=== PATIENT | female | born 1945 ===

== ENCOUNTER 2020-10-15 14:20 | Outpatient (AMB) | payer MEDICARE, MEDICAID, SELFPAY ==
[2020-10-15 15:08] VITALS: BP 130/80; PULSE 66; TEMP 36; O2SAT 98; BMI 20.5
--- NOTE | 2020-10-15 15:08 | A.OFFVIS_ITS ---
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 Accompanied by: Self / Same As Patient Allergies елена Allergy (Intermediate, Verified 06/04/24 13:20) Rash HPI HPI left arm pain / headache : Details: THIS IS ADMINITRATIVELY CLOSED - DO NOT BILL [facility]LY [facility] Medical History Numbness Skin lesion Abnormal EKG Chest pain Cognitive impairment Sinus pain Shoulder pain COVID-19 virus infection Lumbar pain Left shoulder pain Clavicle fracture Peripheral vascular disease Mass of left foot Headache Age related osteoporosis Renal calculi Encounter for Medicare annual wellness exam Left upper quadrant abdominal pain Positive Romberg test Loss of balance Osteoporosis Constipation by delayed colonic transit Anxiety Hearing loss Blurry vision Thyroid nodule Chest pain Cervical spondylosis with radiculopathy Cold extremities Skin rash Cervical radiculopathy due to degenerative joint disease of spine Degenerative disc disease, cervical Surgical History No pertinent past surgical history Family History Father No problems noted. Mother Cancer Skin cancer Sister Skin cancer Sister Lung cancer Social History Household Members: None Household Members Other:: pt states I live with 50 other women , vague Housing: Other Housing Other:: idependent living Do you presently have visiting nurse or other home services: No Alcohol intake: current Alcohol intake frequency: does not drink Alcohol type: wine Comment: 1:1 sitter Patient Tobacco Use Status: Former Tobacco user e-Cigarette/Vaping Use: Never Used Second Hand Smoke Exposure: Yes Advance Directives Date on File: 06/05/24 service: No Current occupational status: retired Cognitive needs: No Hearing needs: No Vision needs: No Physical Exam Vital Signs: Last Vital Signs Temp 96.8 F 10/15/20 15:08 Pulse 66 10/15/20 15:08 BP 130/80 10/15/20 15:08 Pulse Ox 98 10/15/20 15:08 Oxygen Delivery Method Room Air 10/15/20 15:08 BMI result Body Mass Index 20.5 Assessment & Plan Assessment & Plan (1) Degenerative disc disease, cervical: Code(s): M50.30 - Other cervical disc degeneration, unspecified cervical region Category: Medical Orders: Orders MR cervical spine wo con 10/15/20 (2) Cervical radiculopathy due to degenerative joint disease of spine: Code(s): M47.22 - Other spondylosis with radiculopathy, cervical region Category: Medical Orders: Orders MR cervical spine wo con 10/15/20 (3) Skin rash: Code(s): R21 - Rash and other nonspecific skin eruption Category: Medical Orders: Referrals Dermatology Referral Medications: New clotrimazole-betamethasone 1-0.05 % 1 appl topical BID PRN 45 grams 0RF rash 15 days (4) Cold extremities: Code(s): R20.9 - Unspecified disturbances of skin sensation Category: Medical Orders: Orders TSH reflex Free T4 10/15/20 Complete Blood Count Auto Diff 10/15/20 Comprehensive Met. Panel 10/15/20 Coding Level of Care Code Est Pt Level 3 (32797) Diagnoses Degenerative disc disease, cervical M50.30 Cervical radiculopathy due to degenerative joint disease of spine M47.22 Skin rash R21 Cold extremities R20.9
== END 2020-10-15 15:50 ==
LOC: HO.HMGH 14:20
PROVIDERS: PCP Internal Medicine; Visit Provider Internal Medicine
DX: M50.30 Other cervical disc degeneration, unspecified cervical region (principal); M47.22 Other spondylosis with radiculopathy, cervical region; R21 Rash and other nonspecific skin eruption; R20.9 Unspecified disturbances of skin sensation
CPT/HCPCS: 99499

== ENCOUNTER 2020-10-23 13:21 | Outpatient (REF) | payer MEDICARE, MEDICAID, SELFPAY ==
--- NOTE | ~2020-10-23 | MR_ITS ---
EXAMINATION: MR CERVICAL SPINE WITHOUT CONTRAST CLINICAL INFORMATION: Left arm pain. Neck pain. Headaches. COMPARISON: X-ray dated 03/15/2019 TECHNIQUE: MRI of the cervical spine was obtained using routine sequences without contrast. FINDINGS: VERTEBRAL BODIES AND PARASPINAL SOFT TISSUES: There is a mild reversal of the normal cervical lordosis with significant disc space narrowing and dftp-zd-wskqekhd endplate edema at the C5-C6 level where there is a mild retrosubluxation. Mild anterolisthesis and moderate loss of disc height also visible at the C4-C5 level. There is moderate disc space narrowing and a slight retrosubluxation with endplate spurring at C6-C7. Mild anterolisthesis at C2-C3 and C3-C4. There is a mild leftward curvature of the mid cervical spine. Bony hypertrophy and ankylosis of the facet joints noted at the C4-C5 level. The marrow signal is otherwise within normal limits. The vertebral artery flow voids are maintained. The paraspinal soft tissues are unremarkable. There is question of a small exophytic 1 cm nodule projecting from the posterior right thyroid lobe into the tracheoesophageal groove on the axial T2-weighted acquisition. The lung apices are grossly clear. CERVICOMEDULLARY JUNCTION AND VISUALIZED POSTERIOR FOSSA: The craniovertebral junction and imaged portions of the brain parenchyma appear normal. 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 SPINAL LEVELS: C2-C3: Minimal anterior subluxation. No disc pathology. Ftzp-hz-jxntrjht facet arthrosis, worse on the left side. Patent foramina. C3-C4: Mild anterior subluxation and very mild disc bulge without central canal stenosis. Hypertrophic facet arthropathy bilaterally without foraminal encroachment. C4-C5: Anterior subluxation and disc desiccation without central canal stenosis or foraminal narrowing. Ankylosis of the facet joints. C5-C6: Broad-based disc-osteophyte complex and small central disc extrusion with thickening of the ligamentum flavum and facet arthropathy resulting in cdqn-uu-bonjzcce central canal stenosis and severe bilateral foraminal narrowing. C6-C7: Moderate loss of disc height and broad-based posterior disc bulge with mild central canal stenosis. Bulging disc and uncovertebral joint spurring with afkgwtzt-uo-gfdhpr foraminal encroachment. C7-T1: No disc pathology. Uqptdhmv-ql-splknr facet arthropathy with khds-fx-vufowrul foraminal encroachment. No central canal stenosis. MR/MR cervical spine wo con IMPRESSION: Severe degenerative disc disease with endplate edema at the C5-C6 level. Small central disc extrusion, broad-based disc-osteophyte complex, and facet arthropathy resulting in zuru-aa-djgxxbke central canal stenosis and severe foraminal encroachment. 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 Moderate spondylosis at the C6-C7 level with mild central canal stenosis and eauadgrm-kb-mjksdn bilateral foraminal narrowing. Exuberant facet arthropathy with medo-gd-aqxhzzgf foraminal encroachment at C7-T1. Milder spondylitic changes in the upper cervical spine with subluxations and moderate hypertrophic facet arthropathy. No central canal stenosis. Question of a small exophytic thyroid nodule in the right tracheoesophageal groove which could be further assessed with followup sonography.
== END 2020-10-23 13:22 | disposition home or self-care (01) ==
LOC: HO.MRI 13:21
PROVIDERS: PCP Internal Medicine; Visit Provider Internal Medicine
DX: M50.30 Other cervical disc degeneration, unspecified cervical region (principal); M47.22 Other spondylosis with radiculopathy, cervical region
CPT/HCPCS: 72141

== ENCOUNTER 2020-11-04 10:31 | Outpatient (REF) | payer MEDICARE, MEDICAID, SELFPAY ==
--- NOTE | ~2020-11-04 | XR_ITS ---
EXAMINATION: XR CHEST CLINICAL INFORMATION: Chest pain COMPARISON: None TECHNIQUE: 2 views of the chest were obtained. FINDINGS: The cardiac and mediastinal contours are normal. The lungs are clear. There is no pleural effusion or pneumothorax. There is an old T9 vertebral body compression fracture that appears unchanged. There may also be mild to 12 vertebral body compression fracture that is unchanged. XR/XR chest 2V IMPRESSION: No evidence for acute disease in the chest. Old lower thoracic spine compression fractures.
[2020-11-04 11:48] LABS: MANUAL DIFF FLAG NO
[2020-11-04 11:54] LABS: Basophils Percent Auto 0.6 % (0-2); Eosinophils Percent Auto 0.8 % (0-4); Hematocrit 44.4 % (37-47); Imm Gran Abs Auto 0.01 X10*3/uL (0.00-0.03); Imm Gran Pct Auto 0.2 % (0.0-0.4); Lymphocytes Absolute Auto 1.4 X10*3/uL (1.2-4.9); Lymphocytes Percent Auto 30.2 % (20-40); Mean Corpuscular HGB Conc 31.5 g/dl (31.0-35.0); Mean Corpuscular Hemoglobin 29.5 pg (27.0-33.0); Mean Corpuscular Volume 93.5 fL (80-98); Mean Platelet Volume 9.9 fL (9.4-12.3); Monocytes Absolute Auto 0.3 X10*3/uL (0.1-1.2); Monocytes Percent Auto 6.8 % (2-11); Neutrophils Absolute Auto 2.9 X10*3/uL (2.0-8.3); Neutrophils Percent Auto 61.4 % (45-73); Platelet Count 243 X10*3/uL (160-400); Red Blood Count 4.75 X10*6/uL (4.20-5.50); Red Cell Distribution Width 13.3 % (11.0-16.0); White Blood Count 4.7 X10*3/uL (4.8-10.8)
[2020-11-04 12:18] LABS: Troponin-I High Sensitivity < 3.5 ng/L (<3.5-17.0)
[2020-11-04 12:27] LABS: Alanine Aminotransferase 15 U/L (0-31); Albumin Level 4.5 g/dL (3.5-5.0); Alkaline Phosphatase 94 U/L (39-117); Anion Gap 10 (12-20); Aspartate Amino Transferase 22 U/L (5-31); Bilirubin Total 0.8 mg/dL (0.0-1.0); Blood Urea Nitrogen 12 mg/dL (9-16); C Reactive Protein 0.16 mg/dL (< or = 0.50); Calcium 9.9 mg/dL (8.4-10.2); Carbon Dioxide 32 mmol/L (22-29); Chloride 102 mmol/L (96-108); Estimated Glomerular Filt Rate > 60; Glucose Random 115 mg/dL (60-115); Potassium 4.1 mmol/L (3.3-5.1); Sodium 140 mmol/L (135-145); Total Protein 7.3 g/dL (6.5-8.0)
[2020-11-04 12:39] LABS: TSH reflex Free T4 1.17 uIU/mL (0.32-4.0)
== END 2020-11-04 10:32 | disposition home or self-care (01) ==
LOC: HO.LAB 10:31
PROVIDERS: PCP Internal Medicine; Visit Provider Internal Medicine
DX: R20.9 Unspecified disturbances of skin sensation (principal); R07.9 Chest pain, unspecified; I10 Essential (primary) hypertension; M47.22 Other spondylosis with radiculopathy, cervical region
CPT/HCPCS: 36415; 71046; 80053; 84443; 84484; 85025; 86140

== ENCOUNTER 2020-12-06 13:18 | Outpatient (REF) | payer MEDICARE, MEDICAID, SELFPAY ==
--- NOTE | 2020-12-06 15:08 | MHC.AU.ANR ---
Adult Audiological Evaluation Date of Visit: 12/06/20 Reason for Appointment: Audiological evaluation due to concern for decreased hearing. Patient reports that she has trouble hearing the TV and finds herself asking for repetition more often. Does patient feel they have a hearing loss?: Yes If Yes, Which Ear?: Both Ears Has hearing been tested previously?: Yes Previous Hearing Test Results: Previously tested at a clinic in [place], told she had some hearing loss at that time. Records not available to be reviewed. Hearing Handicap Inventory: HHIE SCORE: 12 Based on HHIE score, patient has: Mild to moderate perceived hearing handicap Ear History: Family History of Hearing Loss?: Yes: Sister Medical History: Medical History: Headache Medical History (Other): Diverticulitis Medication List: Lorazepam, tramadol Otoscopy: Right Ear: Unremarkable Left Ear: Unremarkable Tympanometry: Tympanometry performed due to: To assess integrity of the middle ear system Right Ear: Normal Middle Ear System (Type A) Left Ear: Normal Middle Ear System (Type A) Hearing Evaluation: Transducer(s) Used: Insert Earphones Method: Conventional Audiometry Stimuli Used: Pure Tones Right Ear: Description of Hearing: Normal hearing from 250-1000 Hz, sloping to a mild to moderate sensorineural hearing loss from 6639-4804 Hz. Left Ear: Description of Hearing: Normal hearing from 250-1500 Hz, sloping to a mild to moderate sensorineural hearing loss from 6601-7036 Hz. Speech Recognition Threshold (SRT): Method Used: Monitored Live Voice Stimuli Used: Spondee Words Right Ear: 15 dBHL Left Ear: 15 dBHL Word Discrimination: Method: Recorded Lists Word Lists Used: NU-6 Right Ear: 88% at 55 dBHL Left Ear: 92% at 55 dBHL QuickSIN: Mild 5 dB SNR loss when presented at 65 dBHL binaurally, indicating mild difficulties understanding immhwg-zk-glpsp Recommendations: Audiological re-evaluation in one year. Trial with amplification is recommended. Medical clearance from a physician is required before fitting. Recommend patient return for a hearing aid evaluation to further discuss hearing aid options. Diagnosis: Primary Diagnosis: H90.3 Bilateral Sensorineural Hearing Loss Services Performed: Services Performed: Comprehensive Audiological Evaluation (CPT 65148) Tympanometry (CPT 40131) Unlisted Otorhinolaryngological Service or Procedure (CPT 86941) Signature: Provider: Nadia Bee, [facility]
--- NOTE | 2020-12-06 15:09 | MHC.AU.MED ---
Medical Clearance for Hearing Instrumentation Date: 12/06/20 Patient Name: Elizabeth Carver Date of : 1945 Referring Provider: Yuli Gray MD We have seen your patient on 12/06/20 and have determined that they are a candidate for amplification (See accompanying report). Specifically, they would benefit from: Hearing aid use in both ears There is a statute that addresses Medical Evaluation Requirements prior to fitting a patient with a hearing aid. According to [place] statute 265 CMR:6.03(1), (a) General. Except as provided in 265 CMR 6.03(1)(b), a hearing aid assembly supervisor shall not sell a hearing aid unless the prospective user has presented to the hearing aid assembly supervisor a written statement signed by a licensed physician that states that the patient's hearing loss has been medically evaluated and the patient may be considered a candidate for a hearing aid. The medical evaluation must have taken place within the preceding six months. Please note: Due to the [place] Statute referenced above, we cannot accept a signature other than that of a licensed physician. AIRPLANE MECHANIC and PA signatures cannot be accepted. I am in agreement with the above recommendation. There is no medical contraindication for hearing instrumentation. Physician Signature Date Physician Name (Printed)
== END 2020-12-06 13:19 | disposition home or self-care (01) ==
LOC: HO.SH 13:18
PROVIDERS: Visit Provider Internal Medicine
DX: H91.90 Unspecified hearing loss, unspecified ear (principal)
CPT/HCPCS: 92557; 92567; 92700

== ENCOUNTER 2021-02-21 12:51 | Outpatient (REF) | payer MEDICARE, MEDICAID, SELFPAY ==
--- NOTE | ~2021-02-21 | US_ITS ---
EXAMINATION: US ABDOMEN COMPLETE CLINICAL INFORMATION: Left upper quadrant pain. COMPARISON: CT abdomen and pelvis 03/29/2018. MRI abdomen 03/08/2014. TECHNIQUE: Real-time imaging of the abdominal viscera. FINDINGS: PANCREAS: Normal. ABDOMINAL AORTA: The proximal, mid, and distal segments are normal in caliber. INFERIOR VENA CAVA: Visualized portions are normal. LIVER: The liver is normal in size. The liver contour is normal. Parenchymal echogenicity is normal. No focal hepatic lesion. There is no intrahepatic biliary duct dilatation seen. GALLBLADDER: Normal. The gallbladder is physiologically distended without evidence of stones, sludge, polyps, wall thickening or pericholecystic fluid. COMMON BILE DUCT: Normal in caliber measuring 0.13 cm in diameter. RIGHT KIDNEY: There is some fullness of the right renal pelvis but no hydronephrosis. 3.7 cm unilocular right upper pole renal cyst. No renal calculi or solid parenchymal lesions. The kidney measures 9.5 cm in maximum dimension. LEFT KIDNEY: There is a 6 mm echogenic focus in the left mid kidney consistent with a nonobstructing calculus. Several simple appearing left renal cysts are seen, the largest measuring 1.7 x 2.1 x 1.6 cm in the left mid kidney. No hydronephrosis or focal parenchymal lesions. The kidney measures 10.3 cm in maximum dimension. SPLEEN: Normal. The spleen measures 8.1 cm in maximum dimension. FREE FLUID: None. US/US abdomen complete IMPRESSION: 6 mm left mid renal calculus. Simple appearing bilateral renal cysts.
== END 2021-02-21 12:52 | disposition home or self-care (01) ==
LOC: HO.HMGCX 12:51
PROVIDERS: PCP Internal Medicine; Visit Provider Internal Medicine
DX: R10.12 Left upper quadrant pain (principal)
CPT/HCPCS: 76700

== ENCOUNTER 2021-02-21 16:40 | Emergency (ER) | payer MEDICARE, MEDICAID, SELFPAY ==
--- NOTE | ~2021-02-21 | CT_ITS ---
EXAMINATION: CT ABDOMEN AND PELVIS WITHOUT CONTRAST CLINICAL INFORMATION: Left flank pain COMPARISON: 03/29/2018 TECHNIQUE: Multidetector volumetric imaging was performed from the superior aspect of the liver through the pubic symphysis. Sagittal and coronal reformatted images were obtained on the technologist's workstation. This CT examination was performed using dose optimization techniques as appropriate, variously including the following: *Automated exposure control *Adjustment of mA and/or kV according to patient size (this includes techniques or standardized protocols for targeted exams where dose is matched to indication/reason for exam; i.e. extremities or head) *Use of iterative reconstruction technique DLP: 421 mGy-cm FINDINGS: LUNG BASES: Cardiomegaly. LIVER, GALLBLADDER, AND BILIARY TREE: The liver is normal in size, shape, and attenuation. No focal hepatic lesion or biliary ductal dilatation is present. Gallbladder unremarkable. PANCREAS: Unremarkable. SPLEEN: Unremarkable. ADRENAL GLANDS: Unremarkable. KIDNEYS AND URETERS: The kidneys are normal in size, shape, and attenuation. No hydronephrosis or hydroureter. There is a 2 mm nonobstructive calculus within a posterior interpolar calyx of the right upper lobe. Bilateral simple fluid attenuating renal cysts redemonstrated. No perinephric stranding. BLADDER: Unremarkable. GASTROINTESTINAL TRACT: Pancolonic diverticulosis. No evidence of diverticulitis. Normal appendix. Stomach and small bowel unremarkable. ABDOMINAL WALL: No significant hernia is appreciated. LYMPH NODES: Normal. VASCULAR: Unremarkable. PELVIC VISCERA: Unremarkable. OSSEOUS STRUCTURES: Unremarkable. CT/CT abdomen pelvis wo con IMPRESSION: No ureteral calculi or hydronephrosis. Nonobstructive 2 mm calculus, right kidney. Pancolonic diverticulosis without evidence of diverticulitis.
[2021-02-21 17:10] VITALS: BP 167/68; PULSE 66; RESP 16; TEMP 37.1; O2SAT 99
--- NOTE | 2021-02-21 19:18 | ED.ABDPAIN ---
HPI - Abdominal Pain General Chief Complaint: Abdominal Pain Stated Complaint: abd pain Time Seen by Provider: 02/21/21 18:54 Source: patient Mode of arrival: ambulatory History of Present Illness HPI narrative: patient with history of remote kidney stone and diverticulitis comes here for few months of left flank and left upper abdominal pain no nausea no vomiting no fever no chills patient little constipated no blood in the urine no blood in the stool. Related Data Previous Rx's Medication Instructions Recorded lactulose 10 gram/15 mL oral 15 ml PO BEDTIME PRN 30 Days #450 01/16/21 solution ml lorazepam 0.5 mg tablet 0.5 mg PO BEDTIME PRN 30 Days #30 01/16/21 tab ciprofloxacin HCl [Cipro] 500 mg PO BID #14 tab 02/21/21 polyethylene glycol 3350 [Miralax] 17 g PO DAILY #510 g 02/21/21 Allergies Allergy/AdvReac Type Severity Reaction Status Date / Time елена Allergy Intermediate Rash Verified 02/06/21 14:34 Review of Systems Review of Systems Yes all other systems are reviewed and are negative Physical Exam Vital Signs: Vital Signs: Last Vital Signs Temp 98.6 F 02/21/21 20:00 Pulse 78 02/21/21 20:00 Resp 16 02/21/21 20:00 BP 141/68 H 02/21/21 20:00 Pulse Ox 96 02/21/21 20:00 Body Mass Index 20.0 Appearance: Alert. Oriented X3. No acute distress. Eyes: PERRLA, No Nystagmus ENT: Pharynx normal. Oral Mucosa moist Neck: Normal inspection. Neck supple. CVS: Normal heart rate and rhythm. Pulses normal. Respiratory: No respiratory distress. Equal air entry bilateral, no wheezing/rales/rhonchi Abdomen: Soft and nontender. Bowel sounds are present, no mass palpable, Mild left CVA tenderness Skin: Skin warm and dry. Normal skin color. Normal skin turgor. Extremities: No lower extremity edema. No calf tenderness Neuro: Oriented X 3. No motor deficit. No sensory deficit.No cerebellar signs , cranial nerves II-XII intact MDM - Abdominal Pain MDM Narrative Medical decision making narrative: patient eloped from the ER without waiting for the result. CT scan negative for any acute pathology. What lab workup showed UTI. Patient was called at home and prescription for Cipro and MiraLax was sent to pharmacy Lab Data Attestation: I reviewed the patient's lab results. Result diagrams: 02/21/21 19:33 02/21/21 19:33 Labs: Lab Results 02/21/21 02/21/21 02/21/21 Range/Units 19:33 19:33 19:59 WBC 5.2 (4.8-10.8) X10*3/uL RBC 4.21 (4.20-5.50) X10*6/uL Hgb 12.4 (12.0-16.0) g/dl Hct 38.0 (37-47) % MCV 90.3 (80-98) fL MCH 29.5 (27.0-33.0) pg MCHC 32.6 (31.0-35.0) g/dl RDW 13.7 (11.0-16.0) % Plt Count 220 (160-400) X10*3/uL MPV 9.3 L (9.4-12.3) fL Immature Gran % (Auto) 0.2 (0.0-0.4) % Neut % (Auto) 59.8 (45-73) % Lymph % (Auto) 32.3 (20-40) % [place] % (Auto) 6.3 (2-11) % Eos % (Auto) 1.0 (0-4) % Baso % (Auto) 0.4 (0-2) % Lymph # (Auto) 1.7 (1.2-4.9) X10*3/uL [place] # (Auto) 0.3 (0.1-1.2) X10*3/uL Eos # (Auto) 0.1 (0.0-0.4) X10*3/uL Baso # (Auto) 0.0 (0.0-0.2) X10*3/uL Abs Immat Gran (auto) 0.01 (0.00-0.03) X10*3/uL Absolute Neuts (auto) 3.1 (2.0-8.3) X10*3/uL Absolute Nucleated RBC 0.000 (0.0-0.012) X10*3/uL Nucleated RBC % (auto) 0.0 (0.0-0.2) /100WBC Sodium 143 (135-145) mmol/L Potassium 4.0 (3.3-5.1) mmol/L Chloride 108 (96-108) mmol/L Carbon Dioxide 28 (22-29) mmol/L Anion Gap 11 L (12-20) BUN 10 (9-16) mg/dL Creatinine 0.72 (0.5-1.4) mg/dL Estim Creat Clear Calc 64.8 Estimated GFR > 60 Random Glucose 105 (60-115) mg/dL Calcium 9.8 (8.4-10.2) mg/dL Urine Color YELLOW Urine Appearance HAZY Urine pH 6.0 (5.0-8.0) Ur Specific Bel[place] 1.025 (1.005-1.025) Urine Protein NEG (NEG-TRACE) MG/DL Urine Glucose (UA) NEG (NEG) MG/DL Urine Ketones 5 (NEG) MG/DL Urine Blood NEG (NEG) Urine Nitrite NEG (NEG) Ur Leukocyte Esterase 3+ H (NEG) Urine RBC 1-4 (0) /HPF Urine WBC 30-49 H (0-4) /HPF Ur Squamous Epith Cells TRACE /LPF Urine Bacteria TRACE /LPF Urine Mucus TRACE /LPF Discharge Plan Discharge Clinical Impression: Acute UTI Patient Disposition: Elopement Instructions: Urinary Tract Infection in Older Adults (ED) Additional Instructions: drink plenty of fluids and take antibiotic as advised Prescriptions: New ciprofloxacin HCl [Cipro] 500 mg tablet 500 mg PO BID Qty: 14 RF: 0 polyethylene glycol 3350 [Miralax] 17 gram/dose powder 17 g PO DAILY Qty: 510 RF: 0 No Action lactulose 10 gram/15 mL solution 15 ml PO BEDTIME PRN (Reason: constipation) 30 Days Qty: 450 RF: 6 lorazepam 0.5 mg tablet 0.5 mg PO BEDTIME PRN (Reason: anxiety) 30 Days Qty: 30 RF: 0 Discharge Date/Time: 02/21/21 21:54 [facility] Past Medical History Medical History Anxiety Blurry vision Cervical radiculopathy due to degenerative joint disease of spine Cervical spondylosis with radiculopathy Chest pain Cold extremities Constipation by delayed colonic transit Degenerative disc disease, cervical Encounter for Medicare annual wellness exam Hearing loss Left upper quadrant abdominal pain Loss of balance Osteoporosis Positive Romberg test Skin rash Thyroid nodule Family History Family History Father No problems noted. Mother Cancer Social History Social History Alcohol intake: current Alcohol intake frequency: holidays/special occasions only Alcohol type: wine Patient Tobacco Use Status: Never used Tobacco Second Hand Smoke Exposure: Yes Advance Directives: No Advance Directives Information Provided: No
[2021-02-21 19:37] LABS: MANUAL DIFF FLAG NO
[2021-02-21 19:38] LABS: Basophils Percent Auto 0.4 % (0-2); Eosinophils Absolute Auto 0.1 X10*3/uL (0.0-0.4); Hemoglobin 12.4 g/dl (12.0-16.0); Imm Gran Abs Auto 0.01 X10*3/uL (0.00-0.03); Imm Gran Pct Auto 0.2 % (0.0-0.4); Lymphocytes Absolute Auto 1.7 X10*3/uL (1.2-4.9); Lymphocytes Percent Auto 32.3 % (20-40); Mean Corpuscular HGB Conc 32.6 g/dl (31.0-35.0); Mean Corpuscular Hemoglobin 29.5 pg (27.0-33.0); Mean Corpuscular Volume 90.3 fL (80-98); Mean Platelet Volume 9.3 fL (9.4-12.3); Monocytes Absolute Auto 0.3 X10*3/uL (0.1-1.2); Monocytes Percent Auto 6.3 % (2-11); Neutrophils Absolute Auto 3.1 X10*3/uL (2.0-8.3); Neutrophils Percent Auto 59.8 % (45-73); Platelet Count 220 X10*3/uL (160-400); Red Blood Count 4.21 X10*6/uL (4.20-5.50); Red Cell Distribution Width 13.7 % (11.0-16.0); White Blood Count 5.2 X10*3/uL (4.8-10.8)
[2021-02-21 20:00] VITALS: BP 141/68; PULSE 78; RESP 16; TEMP 37; O2SAT 96
[2021-02-21 20:04] LABS: Anion Gap 11 (12-20); Blood Urea Nitrogen 10 mg/dL (9-16); Calcium 9.8 mg/dL (8.4-10.2); Carbon Dioxide 28 mmol/L (22-29); Chloride 108 mmol/L (96-108); Creatinine Clr Calc Pharmacy 64.8; Estimated Glomerular Filt Rate > 60; Glucose Random 105 mg/dL (60-115); Sodium 143 mmol/L (135-145)
[2021-02-21 20:08] LABS: Glucose Urine UA NEG (NEG); Leukocyte Esterase Urine 3+ (NEG); Nitrite Urine NEG (NEG); Specific Gravity - Urine 1.025 (1.005-1.025); UACC Culture Trigger YES; Urine Blood NEG (NEG); Urine Ketones 5 MG/DL (NEG); Urine Protein NEG (NEG-TRACE)
[2021-02-21 20:10] LABS: Appearance Urine HAZY; Color Urine YELLOW
[2021-02-21 20:17] LABS: Bacteria Urine TRACE /LPF; Squamous Epithelial Cell Urine TRACE /LPF; WBC Urine 30-49 /HPF (0-4)
[2021-02-21 20:18] LABS: Mucus Urine TRACE /LPF
--- NOTE | 2021-02-21 21:49 | PC.NURSE ---
PT REPORTED TO THIS RN SHE COULD NOT WAIT ANY LONGER FOR RESULTS AND RE-EVAL BY PROVIDER, STS HAS FOLLOW UP APPT W/ PCP MAHOGANY, AMBULATED OUT OF ED WITH EVEN STEADY GAIT IN NO DISTRESS.
== END 2021-02-21 21:54 | disposition left against medical advice (07) ==
PROVIDERS: Emergency Provider Internal Medicine; PCP Internal Medicine
DX: N39.0 Urinary tract infection, site not specified (principal); Z87.442 Personal history of urinary calculi
CPT/HCPCS: 36415; 74176; 80048; 81001; 81003; 85025; 87086; 99284

== ENCOUNTER 2021-03-11 13:51 | Outpatient (REF) | payer MEDICARE, MEDICAID, SELFPAY ==
--- NOTE | ~2021-03-11 | MM_ITS ---
EXAMINATION: BONE DENSITOMETRY CLINICAL INDICATION: Age-related osteoporosis without current pathological fracture. COMPARISON: Baseline BD dated 09/05/2010. TECHNIQUE: Using a [employer] DXA System (software version: 13.1) manufactured by [employer], dual-energy x-ray absorptiometry was performed of the lumbar spine and left hip. The images are of good technical quality. Summary results are attached. FINDINGS: AP SPINE L1-L4: Current: BMD 0.715 g/cm2, Z-score -2.0, T-score -3.9, osteoporosis, 22.1% decrease from baseline (<5% change is not significant). Baseline: BMD 0.918 g/cm2. LEFT FEMUR, NECK: Current: BMD 0.692 g/cm2, Z-score -0.5, T-score -2.5, osteoporosis. Baseline: BMD 0.863 g/cm2. LEFT FEMUR, TOTAL: Current: BMD 0.713 g/cm2, Z-score -0.5, T-score -2.3, osteopenia, 19.5% decrease from baseline (<5% change is not significant). Baseline: BMD 0.886 g/cm2. IDENTIFIED RISK FACTORS: Menopause. HISTORY OF FRACTURE: None listed. MEDICATIONS: None listed. MM/XR DEXA axial skeleton IMPRESSION: 1. DIAGNOSIS: Osteoporosis based on the lowest T-score value of -3.9 in the lumbar spine applying World Health Organization criteria. 2. 10-YEAR FRACTURE RISK PREDICTION, FRAX: Major osteoporotic fracture (clinical spine, forearm, hip or shoulder) 14.7%. Hip fracture 4.7%. 3. Treatment Recommendations: NOF guidelines recommend consideration for treatment in postmenopausal women and men age 50 and older presenting with the following: -A hip or vertebral (clinical or morphometric) fracture. -T-score less than or equal to -2.5 at the femoral neck or spine after appropriate evaluation to exclude secondary causes. -Low bone mass at the hip or spine and a 10-year fracture probability by FRAX of greater than or equal to 3% for hip fracture or greater than or equal to 20% for major osteoporotic fracture based on the [place] adapted WHO algorithm. 4. Other Recommendations: All treatment decisions require clinical judgment and consideration of individual patient factors, including patient preferences, comorbidities, previous drug use, risk factors not captured in the FRAX model (e.g. frailty, falls, vitamin D deficiency, increased bone turnover, interval significant decline in bone density) and possible under or overestimation of fracture risk by FRAX. Additional medical evaluation for secondary cause of low bone mineral density may be appropriate. FUTURE SCAN RECOMMENDATION: People with diagnosed cases of osteoporosis or at high risk for fracture should have regular bone mineral density tests. For patients eligible for Medicare, routine testing is allowed once every 2 years. The testing frequency can be increased to one year for patients who have rapidly progressing disease, those who are receiving or discontinuing medical therapy to restore bone mass, or have additional risk factors.
== END 2021-03-11 13:52 | disposition home or self-care (01) ==
LOC: HO.MAMMO 13:51
PROVIDERS: Visit Provider Internal Medicine
DX: Z13.820 Encounter for screening for osteoporosis (principal); M81.0 Age-related osteoporosis without current pathological fracture; Z78.0 Asymptomatic menopausal state
CPT/HCPCS: 77080

== ENCOUNTER → 2021-05-22 13:03 | Outpatient (BNVA) | payer MEDICARE, MEDICAID, SELFPAY | PROVIDERS: PCP Internal Medicine; Visit Provider Surgery Vascular Surgery | DX: I83.12 Varicose veins of left lower extremity with inflammation (principal); I73.00 Raynaud's syndrome without gangrene | CPT/HCPCS: 99202 ==

== ENCOUNTER 2021-07-08 07:04 | Observation (INO) | payer MEDICARE, MEDICAID, SELFPAY ==
[2021-07-08] VITALS (12 sets, daily range): BP systolic 106–173; BP diastolic 47–75; PULSE 57–78; RESP 12–20; TEMP 36.4–36.8; O2SAT 97–100; BMI 20.8; BMI 21.3
--- NOTE | ~2021-07-08 | XR_ITS ---
EXAMINATION: XR HIP, LEFT CLINICAL INFORMATION: Fall, hip pain. COMPARISON: None TECHNIQUE: Two views of the left hip. FINDINGS: Left hip joint space is maintained normal. No bony erosive changes, fracture or dislocation seen. The soft tissues are unremarkable. XR/XR hip LT min 2V IMPRESSION: Normal left hip.
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
--- NOTE | ~2021-07-08 | XR_ITS ---
EXAMINATION: XR CHEST CLINICAL INFORMATION: Left shoulder pain COMPARISON: Previous chest x-ray most recent October 2020 TECHNIQUE: Frontal view of the chest was obtained. FINDINGS: The cardiac and mediastinal contours are stable.. The lungs are clear. There is no pleural effusion or pneumothorax. There is a comminuted left distal clavicle fracture. Bones may be osteopenic. Bony structures are otherwise unremarkable. XR/XR chest 1V IMPRESSION: Comminuted left distal clavicle fracture.
--- NOTE | ~2021-07-08 | XR_ITS ---
EXAMINATION: XR SHOULDER, LEFT CLINICAL INFORMATION: Fall. COMPARISON: None. TECHNIQUE: 2 views of the left shoulder. FINDINGS: There is a comminuted fracture of the left distal clavicle. No other fracture is seen. Bones are osteopenic. There is arthritis at the acromioclavicular joint. There is soft tissue swelling overlying the fracture. XR/XR shoulder LT min 2V IMPRESSION: Comminuted left distal clavicle fracture.
--- NOTE | 2021-07-08 07:09 | ECG_ITS ---
Test Reason : syncopy Blood Pressure : / mmHG Vent. Rate : 071 BPM Atrial Rate : 071 BPM P-R Int : 146 ms QRS Dur : 080 ms QT Int : 410 ms P-R-T Axes : 061 -41 062 degrees QTc Int : 445 ms Sinus rhythm with occasional Premature ventricular complexes Left anterior fascicular block Abnormal ECG When compared with ECG of 30-JUL-2010 23:24, Premature ventricular complexes are now Present Referred By: Emma Knapp Electronically Signed By:ELLEN KAPLAN MD
--- NOTE | 2021-07-08 07:22 | ED_ITS ---
HPI - Syncope General Chief Complaint: Syncope Stated Complaint: syncope/bradycardia Time Seen by Provider: 07/08/21 07:08 Source: patient Mode of arrival: EMS Limitations: no limitations History of Present Illness HPI narrative: This is a 76-year-old female past medical history significant for osteoporosis, Raynaud's, anxiety, diverticulitis presents to the emergency department via EMS with 2 syncopal episodes. Patient states she does not recall what happened however she states that she remembers before she passed out she was feeling a little bit dizzy and short of breath. According to EMS patient had 2 syncopal episodes 1 of which was unwitnessed, they also a poor 1 of the syncopal episodes was proceeded with vomiting. Patient mentions her neurologist started her new medication for migraines yesterday, which she started. She is unsure of the name of this medication. At this time she offers no complaints and states some feeling better. She states yesterday she was feeling perfectly fine. She states this is never happened to her in the past. She lives at an assisted living facility. She denies chest pain, fevers, chills, nausea, abdominal pain, diarrhea, headache. Patient does not think she is on a blood thinner, and after reviewing the chart and patient history I do not see a blood thinner listed. MD complaint: loss of consciousness and felt faint Prodromal symptoms: nausea/vomiting and other (Dizziness) Witnessed: Yes - by EMS Context: at rest Injuries sustained associated with event: none Current symptoms: none History: other (migranes, hypotension) Treatments prior to arrival: IV fluids Related Data Home Medications Medication Instructions Recorded Confirmed acetaminophen 325 mg tablet 650 mg PO Q6H PRN 07/08/21 07/08/21 sertraline 25 mg tablet 1 tab PO DAILY 07/08/21 07/08/21 Allergies Allergy/AdvReac Type Severity Reaction Status Date / Time елена Allergy Intermediate Rash Verified 06/05/21 14:51 Review of Systems Review of Systems: Constitutional : No Weight loss, No Fever, No Chills, No Fatigue, No Malaise ENT/Mouth : No sore throat, No Rhinorrhea Eyes: No Eye Pain, No Swelling, No Redness Cardiovascular : No Chest Pain, No SOB, No Dyspnea on Exertion, No Orthopnea, No Edema, No Palpitations Respiratory : No Cough, No Sputum, No Wheezing Gastrointestinal : No Nausea, + Vomiting, No Diarrhea, No Constipation, No abdominal Pain, No Hematochezia, No Melena Genitourinary : No Dysuria, No Urinary Frequency, No Hematuria, Musculoskeletal : No joint pain, No Myalgias, No Joint Swelling Skin : No Skin Lesions, No rash Neuro : No Weakness, No Numbness, + Dizziness, No Headache, + syncope All other systems reviewed and are negative [facility] Past Medical History Attestation statement: The following information was validated with the patient. Source: old records reviewed and nursing notes reviewed Medical History Age related osteoporosis Anxiety Blurry vision Cervical radiculopathy due to degenerative joint disease of spine Cervical spondylosis with radiculopathy Chest pain Cold extremities Constipation by delayed colonic transit Degenerative disc disease, cervical Encounter for Medicare annual wellness exam Headache Hearing loss Left upper quadrant abdominal pain Loss of balance Mass of left foot Osteoporosis Peripheral vascular disease Positive Romberg test Renal calculi Skin rash Thyroid nodule Surgical History No pertinent past surgical history Family History Family History Father No problems noted. Mother Cancer Skin cancer Sister Skin cancer Social History Social History Housing: Assisted Living Facility Alcohol intake: current Alcohol intake frequency: does not drink Alcohol type: wine Patient Tobacco Use Status: Never used Tobacco e-Cigarette/Vaping Use: Never Used Second Hand Smoke Exposure: Yes Use of substances other than those prescribed or required for medical reasons: No Advance Directives: No Advance Directives Information Provided: No service: No Current occupational status: retired Physical Exam Vital Signs: Vital Signs: Last Vital Signs Temp 97.5 F 07/08/21 09:59 Pulse 61 07/08/21 11:45 Resp 16 07/08/21 11:45 BP 106/55 L 07/08/21 11:45 Pulse Ox 97 07/08/21 11:45 Body Mass Index 20.8 Appearance: Alert.? Oriented X3.? No acute distress.? Head: Normocephalic, atraumatic, no step-offs or deformities Eyes: Pupils equal, round and reactive to light.? ENT: Pharynx normal.? Neck: Normal inspection.? Neck supple.? CVS: Normal heart rate and rhythm.? Pulses normal.? Respiratory: No respiratory distress.? Breath sounds normal.? Abdomen: Soft and nontender.? Skin: Skin warm and dry.? Normal skin color.? Normal skin turgor.? Extremities: No lower extremity edema.? No calf ttp. 5/5 strength to bilateral upper and lower extremities. + pain to palpation over left shoulder. + decreas ed range of motion to left shoulder due to pain. Right shoulder normal. + pain to palpation over left hip, decreased range of motion due to pain. Right hip normal Back: No midline tenderness, no C-spine tenderness, full range of motion, no CVA tenderness bilaterally Neuro: Oriented X 3.? No motor deficit.? No sensory deficit. 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 Course Reevaluation(s) Reevaluation #1: No leukocytosis, or anemia noted, no acute electrolyte abnormalities noted. D-dimer 214, no need for CT at this time as there is a low suspicion for PE. Patient has been noted to be COVID positive. She is c urrently 100% on room air. Chest xray normal. Shoulder Xray- distal clavicle fx. Hip Xray pending. TT Dr. Yip for admission. Time: 11:22 Reevaluation #2: Left hip xray negative. Trop negative 3.8. Time: 11:40 Reevaluation #3: Spoke to office who state the medication that was started was sertraline 25 mg po daily for mild cognative impairment Time: 12:35 MDM - Syncope MDM Narrative Medical decision making narrative: [id number] This is a 76-year-old female past medical history significant for osteoporosis, Raynaud's, anxiety, diverticulitis presents to the emergency department via EMS with 2 syncopal episodes. First episode was unwitnessed and at assisted living, the 2nd episode was with EMS and it was preceded with dizziness, shortness of breath and vomiting. This has never happened to her before. Unsure if she hit her head. Patient reports starting new medication prescribed to her by Neurology for migraine headaches, however she does not recall the name of this medication. I personally went into home medications in the system to try to obtain the name of this medication, however I was unable to find a medication prescribed for migraines. I will reach out to Neurology and/or primary care provider to figure this out. Upon physical examination patient is alert and oriented x3, answers questions appropriately. S1 and S2 are appreciated free of murmurs. Lungs are clear to auscultation. Abdomen soft nontender nondistended. Pain to palpation over left shoulder and left hip with limited range of motion due to pain. Right side normal. 5/5 strength upper and lower extremities. No focal neuro deficits noted. Pupils equal round and reactive to light. Head normocephalic, atraumatic, no step-offs or deformities. Plan at this time is to obtain a full workup to rule out ICH, ACS, PE, hypog lycemia, orthostatic hypotension, and med induced syncope. Plan- CBC, CMP, troponin, D-dimer, creatinine kinase, magnesium, UA, COVID, x- ray of chest, left hip, shoulder. EKG, orthostatics vital signs. CT of cervical spine and head/brain. Patient will also be placed on continuous cardiac monitoring. Medical Records Attestation: I reviewed the patient's medical records. Lab Data Attestation: I reviewed the patient's lab results. Result diagrams: 07/08/21 09:14 07/08/21 09:14 Labs: Lab Results 07/08/21 07/08/21 07/08/21 Range/Units 09:14 09:14 09:14 WBC 5.5 (4.8-10.8) X10*3/uL RBC 4.39 (4.20-5.50) X10*6/uL Hgb 13.1 (12.0-16.0) g/dl Hct 40.5 (37.0-47.0) % MCV 92.3 (80.0-98.0) fL MCH 29.8 (27.0-33.0) pg MCHC 32.3 (31.0-35.0) g/dl RDW 13.8 (11.0-16.0) % Plt Count 180 (160-400) X10*3/uL MPV 9.3 L (9.4-12.3) fL Immature Gran % (Auto) 0.5 H (0.0-0.4) % Neut % (Auto) 81.5 H (45-73) % Lymph % (Auto) 11.1 L (20-40) % [place] % (Auto) 6.5 (2-11) % Eos % (Auto) 0.2 (0-4) % Baso % (Auto) 0.2 (0-2) % Lymph # (Auto) 0.6 L (1.2-4.9) X10*3/uL [place] # (Auto) 0.4 (0.1-1.2) X10*3/uL Eos # (Auto) 0.0 (0.0-0.4) X10*3/uL Baso # (Auto) 0.0 (0.0-0.2) X10*3/uL Abs Immat Gran (auto) 0.03 (0.00-0.03) X10*3/uL Absolute Neuts (auto) 4.5 (2.0-8.3) x10*3/uL Absolute Nucleated RBC 0.000 (0.0-0.012) X10*3/uL Nucleated RBC % (auto) 0.0 (0.0-0.2) /100WBC D-Dimer NG/ML Sodium 139 (135-145) mmol/L Potassium 4.3 (3.3-5.1) mmol/L Chloride 107 (96-108) mmol/L Carbon Dioxide 26 (22-29) mmol/L Anion Gap 10 L (12-20) BUN 9 (9-16) mg/dL Creatinine 0.70 (0.5-1.4) mg/dL Estim Creat Clear Calc 67.2 Estimated GFR > 60 Random Glucose 109 (60-115) mg/dL Calcium 9.3 (8.4-10.2) mg/dL Magnesium 2.0 (1.6-2.6) mg/dL Total Bilirubin 0.4 (0.0-1.0) mg/dL AST 25 (5-31) U/L ALT 18 (0-31) U/L Alkaline Phosphatase 89 (39-117) U/L Total Creatine Kinase 70 (26-140) U/L Troponin I High Sens 3.8 (<3.5-17.0) ng/L Total Protein 6.5 (6.5-8.0) g/dL Albumin 4.0 (3.5-5.0) g/dL COVID-19 (GIULIA) (Negative) COVID-19 Clin Com 07/08/21 07/08/21 Range/Units 09:14 09:14 WBC (4.8-10.8) X10*3/uL RBC (4.20-5.50) X10*6/uL Hgb (12.0-16.0) g/dl Hct (37.0-47.0) % MCV (80.0-98.0) fL MCH (27.0-33.0) pg MCHC (31.0-35.0) g/dl RDW (11.0-16.0) % Plt Count (160-400) X10*3/uL MPV (9.4-12.3) fL Immature Gran % (Auto) (0.0-0.4) % Neut % (Auto) (45-73) % Lymph % (Auto) (20-40) % [place] % (Auto) (2-11) % Eos % (Auto) (0-4) % Baso % (Auto) (0-2) % Lymph # (Auto) (1.2-4.9) X10*3/uL [place] # (Auto) (0.1-1.2) X10*3/uL Eos # (Auto) (0.0-0.4) X10*3/uL Baso # (Auto) (0.0-0.2) X10*3/uL Abs Immat Gran (auto) (0.00-0.03) X10*3/uL Absolute Neuts (auto) (2.0-8.3) x10*3/uL Absolute Nucleated RBC (0.0-0.012) X10*3/uL Nucleated RBC % (auto) (0.0-0.2) /100WBC D-Dimer 214 NG/ML Sodium (135-145) mmol/L Potassium (3.3-5.1) mmol/L Chloride (96-108) mmol/L Carbon Dioxide (22-29) mmol/L Anion Gap (12-20) BUN (9-16) mg/dL Creatinine (0.5-1.4) mg/dL Estim Creat Clear Calc Estimated GFR Random Glucose (60-115) mg/dL Calcium (8.4-10.2) mg/dL Magnesium (1.6-2.6) mg/dL Total Bilirubin (0.0-1.0) mg/dL AST (5-31) U/L ALT (0-31) U/L Alkaline Phosphatase (39-117) U/L Total Creatine Kinase (26-140) U/L Troponin I High Sens (<3.5-17.0) ng/L Total Protein (6.5-8.0) g/dL Albumin (3.5-5.0) g/dL COVID-19 (GIULIA) Positive A (Negative) COVID-19 Clin Com See Note Imaging Data CT scan - head: Attestation: I personally reviewed and interpreted this imaging study as follows: Radiologist's impression: CT/CT cervical spine wo con IMPRESSION: No acute intracranial process seen. ? There is no acute fracture, dislocation or subluxation cervical spine. ? Reversal of cervical lordosis with anterior listhesis C3 over C4 and C4 over C5 and retrolisthesis C5 over C6. X-ray of left shoulder and chest: Attestation: I personally reviewed and interpreted this imaging study as follows: Radiologist's impression: FINDINGS: The cardiac and mediastinal contours are stable.. The lungs are clear. There is no pleural effusion or pneumothorax. There is a comminuted left distal clavicle fracture. Bones may be osteopenic. Bony structures are otherwise unremarkable. XR/XR chest 1V IMPRESSION: Comminuted left distal clavicle fracture. ? Left hip Xray : Attestation: I personally reviewed and interpreted this imaging study as follows: Radiologist's impression: FINDINGS: Left hip joint space is maintained normal. No bony erosive changes, fracture or dislocation seen. The soft tissues are unremarkable. XR/XR hip LT min 2V IMPRESSION: Normal left hip. ECG Data Attestation: I personally reviewed and interpreted this ECG as follows: ECG interpretation date: 07/08/21 ECG interpretation time: 08:42 Prior ECG tracings: available for review Interpretation: Ventricular rate of 71, ME normal, QRS normal, QT/QTC normal. The EKG shows sinus rhythm with occasional PVCs. Left axis deviation noted. No ST elevations or inversions. No acute ischemia. No acute changes when compared to EKG from July 30, 2020 Critical Care Time Critical Care Time Critical Care Time: No Discharge Plan Discharge Clinical Impression: Bradycardia, Clavicle fracture Syncope Qualifiers: Syncope type: unspecified Qualified Code(s): R55 - Syncope and collapse Patient Disposition: Admitted As Inpatient
[2021-07-08] MEDS: 0.9 % Sodium Chloride 1,000 ML 999 ML IV (08:44)
[2021-07-08] MEDS: Acetaminophen 325 MG TABLET 650 MG PO ×3 (08:45→22:21)
--- NOTE | 2021-07-08 09:00 | PHA.MEDREC ---
Pharmacy Consult ? Medication Reconciliation Pharmacy has completed the medication reconciliation. There are no remarkables issues for provider's attention. Codi Osorio, MaddieD
[2021-07-08 09:21] LABS: MANUAL DIFF FLAG NO
[2021-07-08 09:27] LABS: Basophils Percent Auto 0.2 % (0-2); Eosinophils Percent Auto 0.2 % (0-4); Hematocrit 40.5 % (37.0-47.0); Hemoglobin 13.1 g/dl (12.0-16.0); Imm Gran Abs Auto 0.03 X10*3/uL (0.00-0.03); Imm Gran Pct Auto 0.5 % (0.0-0.4); Lymphocytes Absolute Auto 0.6 X10*3/uL (1.2-4.9); Lymphocytes Percent Auto 11.1 % (20-40); Mean Corpuscular HGB Conc 32.3 g/dl (31.0-35.0); Mean Corpuscular Hemoglobin 29.8 pg (27.0-33.0); Mean Corpuscular Volume 92.3 fL (80.0-98.0); Mean Platelet Volume 9.3 fL (9.4-12.3); Monocytes Absolute Auto 0.4 X10*3/uL (0.1-1.2); Monocytes Percent Auto 6.5 % (2-11); Neutrophils Absolute Auto 4.5 x10*3/uL (2.0-8.3); Neutrophils Percent Auto 81.5 % (45-73); Platelet Count 180 X10*3/uL (160-400); Red Blood Count 4.39 X10*6/uL (4.20-5.50); Red Cell Distribution Width 13.8 % (11.0-16.0); White Blood Count 5.5 X10*3/uL (4.8-10.8)
[2021-07-08 09:31] LABS: D Dimer 214 NG/ML
[2021-07-08 09:39] LABS: Alanine Aminotransferase 18 U/L (0-31); Alkaline Phosphatase 89 U/L (39-117); Anion Gap 10 (12-20); Aspartate Amino Transferase 25 U/L (5-31); Bilirubin Total 0.4 mg/dL (0.0-1.0); Blood Urea Nitrogen 9 mg/dL (9-16); Calcium 9.3 mg/dL (8.4-10.2); Carbon Dioxide 26 mmol/L (22-29); Chloride 107 mmol/L (96-108); Creatinine Clr Calc Pharmacy 67.2; Estimated Glomerular Filt Rate > 60; Glucose Random 109 mg/dL (60-115); Potassium 4.3 mmol/L (3.3-5.1); Sodium 139 mmol/L (135-145); Total Protein 6.5 g/dL (6.5-8.0)
[2021-07-08 09:40] LABS: COVID-19 Test Positive (Negative)
[2021-07-08 09:45] LABS: Troponin-I High Sensitivity 3.8 ng/L (<3.5-17.0)
[2021-07-08] MEDS: Morphine Sulfate 4 MG/ML CARTRIDGE IVPUSH (10:35)
--- NOTE | 2021-07-08 10:46 | PC.NURSE ---
report given to curriculum and instruction director
--- NOTE | 2021-07-08 11:46 | PC.NURSE ---
pt reports feeling better after the morphine pain at 2/10, vs stable, ns on the monitor
--- NOTE | 2021-07-08 14:12 | P.HPHOSP_ITS ---
History of Present Illness Date of Service: 07/08/21 Chief Complaint: Syncope 76-year-old female presented with syncope. Patient states she has been feeling well overall. On night prior to presentation she started a new medication given to her for migraines by Neurology. She does not recall what the medication was. She woke up at 06:30 on day of admission. Went to the bathroom, felt lightheaded, and then does not remember exactly what happened. She did lose consciousness, when she awoke she had severe left shoulder pain. She called EMS to go to the hospital. In ED x-ray showed clavicular fracture, EKG with sinus with PVCs and left anterior fascicular block, rate of 71, incidentally COVID positive, patient does have known COVID positive exposure recently. She has had 2 vaccines. she denies any fevers, chills, weakness. orthostatics in ED were not completed as patient can tolerate standing. Review of Systems Review of Systems: Constitutional: Denies fever, denies Chills Eyes: denies blurry vision ENT: denies sore throat CVS: denies chest pain Respiratory: Denies dyspnea GI: no abdominal pain : denies dysuria MSK: denies neck pain Skin: denies rash Neuro: denies specific motor weakness Psych: denies suicidal ideation Endocrine: denies heat/cold intolerance Hematologic: denies easy bleeding Allergy: denies hives [facility] Medical History Age related osteoporosis Anxiety Blurry vision Cervical radiculopathy due to degenerative joint disease of spine Cervical spondylosis with radiculopathy Chest pain Cold extremities Constipation by delayed colonic transit Degenerative disc disease, cervical Encounter for Medicare annual wellness exam Headache Hearing loss Left upper quadrant abdominal pain Loss of balance Mass of left foot Osteoporosis Peripheral vascular disease Positive Romberg test Renal calculi Skin rash Thyroid nodule Family History Father No problems noted. Mother Cancer Skin cancer Sister Skin cancer Surgical History No pertinent past surgical history Social History Housing: Assisted Living Facility Alcohol intake: current Alcohol intake frequency: does not drink Alcohol type: wine Patient Tobacco Use Status: Never used Tobacco e-Cigarette/Vaping Use: Never Used Second Hand Smoke Exposure: Yes Use of substances other than those prescribed or required for medical reasons: No Advance Directives: No Advance Directives Information Provided: No service: No Current occupational status: retired Meds Allergies Allergy/AdvReac Type Severity Reaction Status Date / Time елена Allergy Intermediate Rash Verified 06/05/21 14:51 Active Medications: Current Medications Acetaminophen (Acetaminophen 325 Mg Tablet) 650 mg PO Q6H PRN PRN Reason: mild pain Lactated Ringer's (Lr) 1,000 mls @ 80 mls/hr IVCONT .[id number] [facility] Pharmacy Consult (Consult Rx Perform Med Rec) 1 each MISCELLANE ONCE PRN PRN Reason: Consult order Sertraline HCl (Sertraline Hcl 25 Mg Tablet) 25 mg PO DAILY [facility] Home Medications Medication Instructions Recorded Confirmed Last Taken Type acetaminophen 325 mg tablet 650 mg PO Q6H PRN 07/08/21 07/08/21 Unknown History sertraline 25 mg tablet 1 tab PO DAILY 07/08/21 07/08/21 07/07/21 History Physical Exam Vital Signs and Narrative: Vital Signs: Last Vital Signs Temp 97.5 F 07/08/21 09:59 Pulse 61 07/08/21 11:45 Resp 16 07/08/21 11:45 BP 106/55 L 07/08/21 11:45 Pulse Ox 97 07/08/21 11:45 Body Mass Index 20.8 General: no acute distress HEENT: atraumatic Neck: normal to visual inspection CVS: S1, S2, RRR Resp: CTA bilateral Chest: non tender GI: soft, non tender, non distended : no CVA tenderness Skin: no rashes Extremities: no edema Neuro: Oriented X3, grossly intact Psych: cooperative Results Labs CBC and Chem 7: 07/08/21 09:14 07/08/21 09:14 Labs: Laboratory Results - last 24 hr 07/08/21 07/08/21 07/08/21 09:14 09:14 09:14 MCV 92.3 MCH 29.8 MCHC 32.3 RDW 13.8 Plt Count 180 MPV 9.3 L Immature Gran % (Auto) 0.5 H Neut % (Auto) 81.5 H Lymph % (Auto) 11.1 L [place] % (Auto) 6.5 Eos % (Auto) 0.2 Baso % (Auto) 0.2 Lymph # (Auto) 0.6 L [place] # (Auto) 0.4 Eos # (Auto) 0.0 Baso # (Auto) 0.0 Abs Immat Gran (auto) 0.03 Absolute Neuts (auto) 4.5 Absolute Nucleated RBC 0.000 Nucleated RBC % (auto) 0.0 D-Dimer Anion Gap 10 L Estim Creat Clear Calc 67.2 Estimated GFR > 60 Random Glucose 109 Calcium 9.3 Magnesium 2.0 Total Bilirubin 0.4 AST 25 ALT 18 Alkaline Phosphatase 89 Total Creatine Kinase 70 Troponin I High Sens 3.8 Total Protein 6.5 Albumin 4.0 COVID-19 (GIULIA) COVID-19 Clin Com 07/08/21 07/08/21 09:14 09:14 MCV MCH MCHC RDW Plt Count MPV Immature Gran % (Auto) Neut % (Auto) Lymph % (Auto) [place] % (Auto) Eos % (Auto) Baso % (Auto) Lymph # (Auto) [place] # (Auto) Eos # (Auto) Baso # (Auto) Abs Immat Gran (auto) Absolute Neuts (auto) Absolute Nucleated RBC Nucleated RBC % (auto) D-Dimer 214 Anion Gap Estim Creat Clear Calc Estimated GFR Random Glucose Calcium Magnesium Total Bilirubin AST ALT Alkaline Phosphatase Total Creatine Kinase Troponin I High Sens Total Protein Albumin COVID-19 (GIULIA) Positive A COVID-19 Clin Com See Note Imaging Radiologist's Impressions: Impressions Head CT 07/08/21 07:08 IMPRESSION: No acute intracranial process seen. There is no acute fracture, dislocation or subluxation cervical spine. Reversal of cervical lordosis with anterior listhesis C3 over C4 and C4 over C5 and retrolisthesis C5 over C6. Cervical Spine CT 07/08/21 07:09 IMPRESSION: No acute intracranial process seen. There is no acute fracture, dislocation or subluxation cervical spine. Reversal of cervical lordosis with anterior listhesis C3 over C4 and C4 over C5 and retrolisthesis C5 over C6. Chest X-Ray 07/08/21 07:12 IMPRESSION: Comminuted left distal clavicle fracture. Hip X-Ray 07/08/21 11:13 IMPRESSION: Normal left hip. Assessment and Plan (1) Syncope: Qualifiers: Syncope type: unspecified Qualified Code(s): R55 - Syncope and collapse Status: Acute 76-year-old female presented with syncope syncope likely orthostatic, IV fluids, monitor on telemetry incidental finding of COVID positive currently asymptomatic airborne isolation mood disorder continue sertraline Quality Stroke Does the patient have a stroke diagnosis?: No VTE Prior VTE?: No VTE Risk Level:: Medical - moderate - high VTE Device Contraindication: Treatment Not Indicated VTE Drug Contraindication: N/A - Med Ordered
[2021-07-08] MEDS: Lactated Ringers 1,000 ML 80 ML IVCONT (15:07)
[2021-07-08] MEDS: Enoxaparin Sodium 40 MG/0.4 ML SYRINGE SUBCUT (15:07)
[2021-07-08 15:35] LABS: Appearance Urine CLEAR; Color Urine YELLOW; Glucose Urine UA NEG (NEG); Leukocyte Esterase Urine 1+ (NEG); Nitrite Urine NEG (NEG); UACC Culture Trigger YES; Urine Blood NEG (NEG); Urine Ketones 40 MG/DL (NEG); Urine Protein NEG (NEG-TRACE)
[2021-07-08 15:47] LABS: Squamous Epithelial Cell Urine TRACE /LPF
[2021-07-08 15:48] LABS: Bacteria Urine TRACE /LPF
[2021-07-09 03:19] VITALS: BP 147/67; PULSE 57; RESP 18; TEMP 36.9; O2SAT 99
[2021-07-09] MEDS: Lactated Ringers 1,000 ML 80 ML IVCONT (03:35)
[2021-07-09 06:52] LABS: Hematocrit 38.1 % (37.0-47.0); Hemoglobin 12.3 g/dl (12.0-16.0); Mean Corpuscular HGB Conc 32.3 g/dl (31.0-35.0); Mean Corpuscular Hemoglobin 29.6 pg (27.0-33.0); Mean Corpuscular Volume 91.6 fL (80.0-98.0); Mean Platelet Volume 9.7 fL (9.4-12.3); Platelet Count 175 X10*3/uL (160-400); Red Blood Count 4.16 X10*6/uL (4.20-5.50); Red Cell Distribution Width 13.9 % (11.0-16.0); White Blood Count 3.8 X10*3/uL (4.8-10.8)
[2021-07-09 07:09] LABS: Anion Gap 8 (12-20); Blood Urea Nitrogen 6 mg/dL (9-16); Calcium 9.1 mg/dL (8.4-10.2); Carbon Dioxide 29 mmol/L (22-29); Chloride 108 mmol/L (96-108); Creatinine Clr Calc Pharmacy 78.6; Estimated Glomerular Filt Rate > 60; Glucose Fasting 102 mg/dL (60-99); Potassium 4.1 mmol/L (3.3-5.1); Sodium 141 mmol/L (135-145)
[2021-07-09 07:23] VITALS: BP 161/66; PULSE 65; RESP 18; TEMP 36.3; O2SAT 99
[2021-07-09 08:08] VITALS: BP 171/76; PULSE 65
[2021-07-09 08:40] VITALS: BP 189/86; PULSE 72
[2021-07-09 08:43] VITALS: BP 165/83; PULSE 85
--- NOTE | 2021-07-09 08:45 | MHC.CM.PN ---
Patient is Covid (+); CM spoke with her over the phone on her cell and addressed GARCÍA with her.Patient lives alone in an apartment; she is independent and very active [facility]Home [facility]elly is Patient's goal for dc and CM has initiated and will follow for dc planning.Patient's Sister/Janice is her HCP and PCP is Dr.Ana Rick.Patient has an involved Son as well.
[2021-07-09] MEDS: Sertraline HCL 25 MG TABLET PO (09:58)
[2021-07-09] MEDS: 0.9 % Sodium Chloride Flush 3 ML SYRINGE IVFLUSH (10:00)
--- NOTE | 2021-07-09 10:15 | PM.DS ---
DS: Providers Provider Date of Service: 07/09/21 Date of admission: 07/08/21 14:10 Primary care physician: Yuli Gray MD DS: Diagnosis Discharge Diagnosis (1) Syncope: Status: Acute (2) Clavicle fracture: Status: Acute DS: Summary Hospital Course Hospital Course: Admission note HPI ?76-year-old female presented with syncope.? Patient states she has been feeling well overall.? On night prior to presentation she started a new medication given to her for migraines by Neurology.? She does not recall what the medication was.? She woke up at 06:30 on day of admission.? Went to the bathroom, felt lightheaded, and then does not remember exactly what happened.? She did lose consciousness, when she awoke she had severe left shoulder pain.? She called EMS? to go to the hospital.? In ED x-ray showed clavicular fracture, EKG with sinus with PVCs and left anterior fascicular block, rate of 71, incidentally COVID positive, patient does have known COVID positive exposure recently.? She has? had 2 vaccines.? she denies any fevers, chills, weakness. orthostatics in ED were not completed as patient can tolerate standing. Hospital course The patient was admitted to the hospital after sustaining an unwitnessed fall at home. CT scan negative for any acute findings. Symptoms completely resolved at time of presentation believed to be secondary to drop in her blood pressure reading as orthostatic vitals showed admission. Treated with IV fluid with good response over the course of hospital stay. No recurrence of syncopal episode or lightheadedness upon ambulation. Advised to drink plenty of water and to stand up gradually. Incidentally found to have COVID positive test. Kept on isolation. Remained on room air with 99% O2 sat. Found to have left clavicle fracture on x-ray. Controlled with pain medication. Advised to follow-up as outpatient with primary and use pain medications as needed. Time Spent with Patient Time attestation: Total time spent providing and/or coordinating discharge services: Discharge coordination time: Less than 30 minutes Quality: Stroke Does the patient have a stroke diagnosis?: No Physical Exam Vital Signs: Vital Signs: Last Vital Signs Temp 97.4 F 07/09/21 07:23 Pulse 85 07/09/21 08:43 Resp 18 07/09/21 07:23 BP 165/83 H 07/09/21 08:43 Pulse Ox 99 07/09/21 07:23 Body Mass Index 21.3 Const: Other: Constitutional : Alert, oriented, not in distress Neck : Normal inspection, Supple Cardiovascular : RRR, S1 S2, no lower extremity edema Respiratory : Good bilateral air entry, no crackles, wheezes or rhonchi Gastrointestinal: soft, lax, Normal bowel sounds, Non tender Skin : Warm, Dry, tenderness of the left clavicle with no subcutaneous crepitations Neurological : Alert & oriented x3, No focal deficit DS: Data Data Completed and Pending Labs on day of discharge: Laboratory Results - last 24 hr 07/08/21 07/09/21 07/09/21 15:28 06:21 06:21 WBC 3.8 L RBC 4.16 L Hgb 12.3 Hct 38.1 MCV 91.6 MCH 29.6 MCHC 32.3 RDW 13.9 Plt Count 175 MPV 9.7 Absolute Nucleated RBC 0.000 Nucleated RBC % (auto) 0.0 Sodium 141 Potassium 4.1 Chloride 108 Carbon Dioxide 29 Anion Gap 8 L BUN 6 L Creatinine 0.61 Estim Creat Clear Calc 78.6 Estimated GFR > 60 Fasting Glucose 102 H Calcium 9.1 Urine Color YELLOW Urine Appearance CLEAR Urine pH 6.0 Ur Specific [place] 1.020 Urine Protein NEG Urine Glucose (UA) NEG Urine Ketones 40 Urine Blood NEG Urine Nitrite NEG Ur Leukocyte Esterase 1+ H Urine RBC 1-4 Urine WBC 1-4 Ur Squamous Epith Cells TRACE Urine Bacteria TRACE Preliminary micro results at discharge 07/08/21 Unknown Urine Culture - Preliminary Urine clean catch - Urine sanz top No growth to date. Discharge Plan Discharge Patient Disposition: Home, Self-Care Discharge Diagnosis: Syncope and fall Clavicle fracture Referrals: Yuli Vieira MD [Primary Care Provider] - 1 Week Discharge Medications: Continued acetaminophen 325 mg Tablet 650 mg PO Q6H PRN (Reason: Pain) RF: 0 sertraline 25 mg tablet 1 tab PO DAILY RF: 0 Discharge Orders: Discharge Order (Routine); Ordered 07/09/21 Ordered By: Fifi Rangel Diet: advance to usual diet Activity on Discharge: As tolerated Stand Alone Forms: Patient Portal Discharge page Care Plan Goals: Read below Health Concerns: Read below Plan of Treatment: Read below Assessment: You were admitted to the hospital for observation after sustaining a syncope and fall at home. Your blood pressure was noticed to be on the lower end at time of presentation responded well to IV fluids. Images were negative for any acute brain insult. An x-ray showed fracture of your clavicle bone. To use [id number] pain medications as needed Drink plenty of fluids To follow-up with PCP as outpatient.
--- NOTE | 2021-07-09 10:20 | MHC.CM.PN ---
Patient has been medically cleared for dc to home today, no services.
--- NOTE | 2021-07-11 09:40 | MHC.CM.PN ---
Received notification from patient's sister that she was having difficulty post discharge. Called and spoke with Elizabeth who reports difficulty with adl's and feels she would benefit from [facility]. Confirmed with patient choice of [facility]. Call placed to PCP office and RN sending message to MD for PT/OT. Follow up message sent to [facility] to notify them of pending referral from PCP.
== END 2021-07-09 11:00 | disposition home or self-care (01) ==
LOC: HO.ED 12:31 → HO.EDOVER 14:39 → HO.IMC 18:09
PROVIDERS: Physician Assistant; Admitting Provider Internal Medicine; Emergency Provider Emergency Medicine Emergency Medical Services; PCP Internal Medicine; Visit Provider Student in an Organized Health Care Education/Training Program
DX: R55 Syncope and collapse (principal); R00.1 Bradycardia, unspecified; U07.1 COVID-19; I44.4 Left anterior fascicular block; S42.009A Fracture of unspecified part of unspecified clavicle, initial encounter for closed fracture; W18.39XA Other fall on same level, initial encounter; Y93.E8 Activity, other personal hygiene; Y92.091 Bathroom in other non-institutional residence as the place of occurrence of the external cause; Y99.8 Other external cause status; K57.90 Diverticulosis of intestine, part unspecified, without perforation or abscess without bleeding; Z79.82 Long term (current) use of aspirin; Z79.891 Long term (current) use of opiate analgesic
CPT/HCPCS: 36415; 70450; 71045; 72125; 73030; 73502; 80048; 80053; 81001; 82550; 83735; 84484; 85025; 85027; 85379; 87086; 87635; 93005; 96361; 96372; 96374; 99219; 99285; J1650; J2270

== ENCOUNTER 2021-07-20 10:17 | Emergency (ER) | payer MEDICARE, MEDICAID, SELFPAY ==
[2021-07-20 10:24] VITALS: BP 167/87; PULSE 70; RESP 18; TEMP 36.6; O2SAT 99; BMI 21.1
--- NOTE | 2021-07-20 11:14 | ED_ITS ---
HPI - Extremity Problem General Chief complaint: Extremity Injury, Upper Stated complaint: l shoulder pain Time Seen by Provider: 07/20/21 10:32 Source: patient and family Mode of arrival: ambulatory Limitations: no limitations History of Present Illness HPI Narrative: 76-year-old female here with complaints of persistent left shoulder pain after being diagnosed with a distal comminuted left clavicular fracture 12 days ago. Patient tells me she is taking Tylenol at home with persistent pain. She has not follow-up with orthopedic. she intermittently wears her sling but feels like it does not help. no new injury or trauma. No radiation of pain. No numbness or tingling or paresthesias reported. No fevers or chills. Of note, the patient was admitted to this facility 07/08 for syncope with left clavicular fracture. She had a negative workup and was discharged home on July 09. Patient tells me she has not had any additional syncopal episodes. Related Data Home Medications Medication Instructions Recorded Confirmed sertraline 25 mg tablet 1 tab PO DAILY 07/08/21 07/15/21 acetaminophen 500 mg tablet 1,000 mg PO Q6H PRN 07/15/21 07/15/21 Previous Rx's Medication Instructions Recorded ibuprofen 800 mg tablet 800 mg PO Q8H PRN 7 Days #21 tab 07/14/21 oxycodone 5 mg tablet 5 mg PO Q8H PRN #10 tab 07/20/21 Allergies Allergy/AdvReac Type Severity Reaction Status Date / Time елена Allergy Intermediate Rash Verified 07/15/21 08:52 [facility] Past Medical History Medical History (Updated 07/20/21 @ 11:01 by Sara Rocha NP) Age related osteoporosis Anxiety Blurry vision Cervical radiculopathy due to degenerative joint disease of spine Cervical spondylosis with radiculopathy Chest pain Clavicle fracture Cold extremities Constipation by delayed colonic transit Degenerative disc disease, cervical Encounter for Medicare annual wellness exam Headache Hearing loss Left shoulder pain Left upper quadrant abdominal pain Loss of balance Lumbar pain Mass of left foot Osteoporosis Peripheral vascular disease Positive Romberg test Renal calculi Skin rash Thyroid nodule Surgical History No pertinent past surgical history Family History Family History Father No problems noted. Mother Cancer Skin cancer Sister Skin cancer Social History Social History Housing: Assisted Living Facility Alcohol intake: current Alcohol intake frequency: does not drink Alcohol type: wine Patient Tobacco Use Status: Never used Tobacco e-Cigarette/Vaping Use: Never Used Second Hand Smoke Exposure: Yes Advance Directives: No Advance Directives Information Provided: No service: No Current occupational status: retired Physical Exam Vital Signs: Vital Signs: Last Vital Signs Temp 97.8 F 07/20/21 10:24 Pulse 70 07/20/21 10:24 Resp 18 07/20/21 10:24 BP 167/87 H 07/20/21 10:24 Pulse Ox 99 07/20/21 10:24 Body Mass Index 21.1 Course Course Course Narrative: 1115- 76-year-old female with a known left clavicular fracture here with persistent pain despite taking Tylenol home. I did review the x-rays from her previous visit which show a comminuted left distal clavicular fracture. There is no new injury or trauma so I do not feel like additional imaging is warranted. I did discuss starting the patient on low-dose oxycodone which he can take additional Tylenol home. She tells me that she has taken this before and it seems to help. -She does tell me that today while at mass she was having a lot of pain and felt generally weak and had to sit down for a moment. Patient tells me that she has been feeling well otherwise. The son tells me he is concerned that the patient had this syncopal episode warranting her admission and feels like she may need to be readmitted to the hospital. I discussed with him at the patient is not having any continued episodes. I also discussed that she had a workup while she was here in the hospital and can follow up outpatient with her primary care doctor. She does have a PROTECTIVE SIGNAL INSTALLER HELPER which comes in to her home once a week to help with her ADLs. We did discuss if she needs additional services and she would like her PROTECTIVE SIGNAL INSTALLER HELPER to come in more frequently. She does not feel like she needs short-term rehab for any visiting nurse services. She currently lives in a assisted living facility. I explained to the patient that I will place a case management consult and they can discuss with her agency if more services are covered with insurance. I spoke with Greta hilton CM who will follow-up with patient at home. - Patient also wondering if she should have a repeat COVID test. She tells me she tested positive on July 08 for COVID-19. She is fully vaccinated. She was asymptomatic. She tells me she completed her 10 day quarantine at home. She has no symptoms. I explained to her that we testing is not necessary. If she is asymptomatic and has completed her quarantine she may discontinue this. Reviewed worrisome signs and symptoms of when to return to the emergency department. Comfortable discharge home. MDM - Extremity (Nontraumatic) Medical Records Attestation: I reviewed the patient's medical records. Lab Data Attestation: I reviewed the patient's lab results. Discharge Plan Discharge Clinical Impression: Clavicle fracture Qualifiers: Encounter type: initial encounter Clavicle location: lateral end Fracture type: closed Laterality: left Patient Disposition: Home, Self-Care Instructions: Clavicle Fracture (ED) Additional Instructions: you have a fracture of her collarbone. use the sling only if it makes you feel better. this takes 8-10 weeks to heal. you do not need surgery. you can follow-up with Orthopedics. Please call them tomorrow for follow-up. take oxycodone every 8 hours as needed for pain. this can make you feel sleepy so do not drive while taking it. change positions slowly. follow-up with your primary care doctor after your recent hospitalization. you do not need to retest for COVID. Your quarantine is completed I have consulted the rn case manager and they will reach out to the agency of your visiting aide to see if you qualify for more services. Prescriptions: New oxycodone 5 mg tablet 5 mg PO Q8H PRN (Reason: pain) Qty: 10 RF: 0 No Action ibuprofen 800 mg tablet 800 mg PO Q8H PRN (Reason: pain) 7 Days Qty: 21 RF: 0 sertraline 25 mg tablet 1 tab PO DAILY RF: 0 acetaminophen 500 mg tablet 1,000 mg PO Q6H PRNRF: 0 Referrals: Samson Streeter MD [Physician] - 2 days Interventions: ED Discharge Assessment Last Done: 07/20/21 11:08 Discharge Date/Time: 07/20/21 11:08
== END 2021-07-20 11:08 | disposition home or self-care (01) ==
PROVIDERS: Emergency Provider Emergency Medicine; PCP Internal Medicine
DX: M25.512 Pain in left shoulder (principal); S42.035D Nondisplaced fracture of lateral end of left clavicle, subsequent encounter for fracture with routine healing; X58.XXXD Exposure to other specified factors, subsequent encounter
CPT/HCPCS: 99283

== ENCOUNTER 2021-07-28 07:40 | Outpatient (REF) | payer MEDICARE, MEDICAID, SELFPAY | END 2021-07-28 07:41 | disposition home or self-care (01) | LOC: HO.HOSX 07:40 | PROVIDERS: Visit Provider Physician Assistant | DX: Z13.89 Encounter for screening for other disorder (principal) ==

== ENCOUNTER 2021-08-01 09:27 | Emergency (ER) | payer MEDICARE, MEDICAID, SELFPAY ==
[2021-08-01 09:43] VITALS: BP 138/81; BP 168/80; PULSE 65; PULSE 70; RESP 18; TEMP 36.1; O2SAT 100; BMI 20.7
--- NOTE | 2021-08-01 09:51 | ED.HA ---
HPI - Headache General Chief Complaint: Headache Stated Complaint: HEADACHE Time Seen by Provider: 08/01/21 09:38 Source: patient Mode of arrival: EMS Limitations: no limitations History of Present Illness HPI Narrative: This is a 76-year-old female complains of a headache that began this morning. The patient cannot say whether she woke up with it. She notes it was more severe earlier and was on the right side and now is mild on the left side. She denies any history of migraine headaches, does have a history of cervical radiculopathy. She denies any recent falls but did have a fall on July 08 and was evaluated here, had a CT of her head, cervical spine, also was diagnosed with a left clavicle fracture. She notes some residual pain down her left arm from this fracture. She denies any acute visual changes, denies any nausea vomiting, denies any new weakness or numbness in her face, arms, legs. She does feel that she is more forgetful than she used to be. She does live in assisted living. She denies any fever neck stiffness but Related Data Home Medications Medication Instructions Recorded Confirmed sertraline 25 mg tablet 1 tab PO DAILY 07/08/21 08/01/21 acetaminophen 500 mg tablet 1,000 mg PO Q6H PRN 07/15/21 08/01/21 Previous Rx's Medication Instructions Recorded arm sling #1 ea 07/30/21 ibuprofen 800 mg tablet 800 mg PO Q8H PRN 7 Days #21 tab 08/01/21 Allergies Allergy/AdvReac Type Severity Reaction Status Date / Time елена Allergy Intermediate Rash Verified 08/01/21 08:51 Review of Systems Review of Systems: Yes all other systems are reviewed and are negative Constitutional: Constitutional: Reports as per HPI, Reports no additional constitutional complaints, Denies fever(s) and Reports headache(s) Eyes: Eyes: Reports as per HPI, Reports no additional eye complaints and Denies loss of vision ENT: Reports headache(s) and Denies neck pain Cardiovascular: Cardiovascular: Reports no additional cardiovascular complaints Respiratory: Respiratory: Reports no additional respiratory complaints Gastrointestinal: Gastrointestinal: Denies abdominal pain Musculoskeletal: Musculoskeletal: Reports arthralgias, Denies neck pain, Denies numbness and Denies stiffness Neurologic: Reports headache(s), Denies focal weakness, Denies loss of vision, Reports memory loss, Denies numbness and Denies Sensory deficit (Neuro) Psychiatric: Psychiatric: Reports no additional psychiatric complaints and Reports memory loss [facility] Past Medical History Medical History (Updated 08/01/21 @ 10:38 by Charlie Vasquez MD) Age related osteoporosis Anxiety Blurry vision Cervical radiculopathy due to degenerative joint disease of spine Cervical spondylosis with radiculopathy Chest pain Clavicle fracture Cold extremities Constipation by delayed colonic transit Degenerative disc disease, cervical Encounter for Medicare annual wellness exam Headache Hearing loss Left shoulder pain Left upper quadrant abdominal pain Loss of balance Lumbar pain Mass of left foot Osteoporosis Peripheral vascular disease Positive Romberg test Renal calculi Shoulder pain Skin rash Thyroid nodule Surgical History No pertinent past surgical history Family History Family History Father No problems noted. Mother Cancer Skin cancer Sister Skin cancer Social History Social History Housing: Assisted Living Facility Alcohol intake: current Alcohol intake frequency: does not drink Alcohol type: wine Patient Tobacco Use Status: Never used Tobacco e-Cigarette/Vaping Use: Never Used Second Hand Smoke Exposure: Yes Advance Directives: No Advance Directives Information Provided: Yes service: No Current occupational status: retired Physical Exam Vital Signs: Vital Signs: Last Vital Signs Temp 97.0 F 08/01/21 09:43 Pulse 65 08/01/21 09:43 Resp 18 08/01/21 09:43 BP 138/81 08/01/21 09:43 Pulse Ox 100 08/01/21 09:43 BMI result Body Mass Index 20.7 Const: Other: Patient pleasant, talkative, does not appear uncomfortable General: cooperative, no acute distress and alert Orientation/consciousness: patient oriented x3 HENMT: Other: No scalp tenderness, no neck muscle tenderness. Head: Yes normal to inspection Eyes: General: appearance normal, both eyes and all related structures Eyelids: Yes eyelids normal Conjunctivae: conjunctivae normal Pupils: Equal, round and reactive pupils present Neck: Neck: Yes normal visual inspection and Yes supple Chest: Chest palpation & inspection: normal inspection of the chest Resp: Effort & Inspection: normal respiratory effort Auscultation: clear to auscultation bilaterally Cardio: Rate: regular rate Rhythm: regular rhythm Heart sounds: S1 normal heart sound present, S2 normal heart sound present, no gallops, no murmurs and no rubs GI: Palpation (GI): Soft to palpation, nontender and Other GI palpation findings present (Non-distended) Auscultation: normal bowel sounds Skin: General skin exam: no rashes or lesions noted Neuro: General: patient oriented x3, no focal motor deficits and CN's II-XI intact bilaterally Cranial nerves: Yes Equal, round and reactive pupils present Cognition (Neuro): normal cognition Motor exam (neuro): 5/5 motor strength present throughout Sensory Exam: No Sensory deficit (Neuro) Extrem: General: Yes normal to inspection and Yes no pedal edema Psych: Appearance: grossly normal Affect: normal affect MDM - Headache MDM Narrative Medical decision making narrative: Patient with a headache today, states she does not usually get headaches, but by the time she was here, stated it was improved. Patient had a fall 3 weeks ago but did have a negative head CT. Patient has not had a headache in the interval. Patient appeared well, was jovial, ambulated normally. Patient medicated with Toradol 15 mg IM and tramadol 50 mg p.o.. Given the overall clinical picture, did not feel the need perform an additional head CT on the patient. Patient does have history of prior headache, anxiety Discharge Plan Discharge Clinical Impression: Headache Patient Disposition: Home, Self-Care Instructions: Acute Headache (ED) Additional Instructions: Use acetaminophen alternating with ibuprofen for headache as needed. Follow-up with primary care physician. Return for any new or worsened symptoms Prescriptions: No Action (DME) arm sling See Rx Instructions .Route .MEDSUPPLY Qty: 1 RF: 0 sertraline 25 mg tablet 1 tab PO DAILY RF: 0 acetaminophen 500 mg tablet 1,000 mg PO Q6H PRNRF: 0 ibuprofen 800 mg tablet 800 mg PO Q8H PRN (Reason: pain) 7 Days Qty: 21 RF: 0 Interventions: ED Discharge Assessment Last Done: 08/01/21 10:45 Discharge Date/Time: 08/01/21 10:45
[2021-08-01] MEDS: traMADoL HCL 50 MG TABLET PO (10:30)
[2021-08-01] MEDS: Ketorolac Tromethamine 30 MG/ML VIAL 15 MG IM (10:31)
== END 2021-08-01 10:45 | disposition home or self-care (01) ==
PROVIDERS: Emergency Provider Emergency Medicine; PCP Family Medicine
DX: R51.9 Headache, unspecified (principal); Z79.899 Other long term (current) drug therapy
CPT/HCPCS: 96372; 99283; 99284; J1885

== ENCOUNTER → 2021-09-08 14:41 | Outpatient (REF) | payer MEDICARE, MEDICAID, SELFPAY ==
--- NOTE | ~2021-09-08 | XR_ITS ---
EXAMINATION: XR SINUSES CLINICAL INFORMATION: Other specified disorders of sinuses COMPARISON: CT head dated 07/08/2020 TECHNIQUE: Celestin, Yanez, lateral, and SMV views of the paranasal sinuses FINDINGS: Paranasal sinuses appear clear without air-fluid levels. No fractures are identified. No radiodense foreign bodies. XR/XR sinus min 3V IMPRESSION: Paranasal sinuses and mastoid air cells are clear
--- NOTE | 2021-09-08 14:50 | ECG_ITS ---
Test Reason : R07.9 Blood Pressure : / mmHG Vent. Rate : 070 BPM Atrial Rate : 070 BPM P-R Int : 136 ms QRS Dur : 082 ms QT Int : 364 ms P-R-T Axes : 054 -30 063 degrees QTc Int : 393 ms Sinus rhythm with Premature atrial complexes with Aberrant conduction Left axis deviation Abnormal ECG When compared with ECG of 08-JUL-2021 08:42, Premature ventricular complexes are no longer Present Aberrant conduction is now Present QT has shortened Referred By: Yuli Gray Electronically Signed By:Serge Regan
== END ==
LOC: HO.CARD 14:41
PROVIDERS: PCP Internal Medicine; Visit Provider Internal Medicine
DX: R07.9 Chest pain, unspecified (principal); J34.89 Other specified disorders of nose and nasal sinuses; R41.89 Other symptoms and signs involving cognitive functions and awareness; E55.9 Vitamin D deficiency, unspecified
CPT/HCPCS: 70220; 93005

== ENCOUNTER → 2021-10-16 14:59 | Outpatient (BNVA) | payer MEDICARE, MEDICAID, SELFPAY | PROVIDERS: PCP Internal Medicine; Referring Provider Internal Medicine; Visit Provider Nurse Practitioner Family | DX: R07.89 Other chest pain (principal); R94.31 Abnormal electrocardiogram [ECG] [EKG] | CPT/HCPCS: 99212 ==

== ENCOUNTER → 2021-12-02 14:57 | Outpatient (REF) | payer MEDICARE, MEDICAID, SELFPAY ==
--- NOTE | 2021-12-02 15:00 | CA_ITS ---
Transthoracic Echocardiogram Patient (Last, First, Middle): Elizabeth Carver, Gender: Female Date of : 1945 Age: 76 Procedure Date: 12/02/2021 Procedure Type: Transthoracic Echocardiogram Location: OP Height: 170.18 cm Weight: 60.33 kg BSA: 1.70 m2 Heart Rate: bpm BP: 122 / 77 mmHg Glass Tube Bender: ASHLEIGH Referring MD: Mallika Garcia PATIENT INFORMATION COORDINATORGabby Symptoms: R94.31 - Abnormal electrocardiogram [ECG] [EKG] Study Quality: Good ECG Rhythm: Sinus Conclusions: - The left ventricular systolic function is normal. The calculated ejection fraction is 69% by biplane method. - There is mild to moderate tricuspid valve regurgitation. Findings Left Ventricle Normal left ventricular cavity size. There is normal left ventricular wall thickness. The left ventricular systolic function is normal. The calculated ejection fraction is 69% by biplane method. There is no evidence of regional wall motion abnormalities. Diastolic function is normal for age. Right Ventricle Normal right ventricular cavity size and systolic function. Atria Both atria are normal in size. Aortic Valve There is a normal trileaflet aortic valve. There is no aortic valve stenosis. There is no aortic valve regurgitation. Mitral Valve The mitral valve appears normal. There is trace mitral valve regurgitation. There is no mitral valve stenosis. Pulmonic Valve The pulmonic valve was not well visualized. Tricuspid Valve Normal tricuspid valve structure. There is mild to moderate tricuspid valve regurgitation. The pulmonary artery systolic pressure is normal. Great Vessels The asc aorta is normal in size. Venous The inferior vena cava is normal in size and collapses greater than 50% with inspiration. Pericardium/Pleural There is no evidence of pericardial effusion. Prior Study Comparison Changes noted compared to prior study dated: 07/31/2010. Slight increase in tricuspid regurgitation. Measurements 2D Linear Measurements IVSd: 0.82 0.6-0.9/0.6-1.0 cm LVIDd: 4.17 3.9-5.3/4.2-5.9 cm LVIDd Index: 2.45 2.4-3.2/2.2-3.1 cm/m2 LVIDs: 2.34 2.0-3.6 cm LVPWd: 0.82 0.7-1.1 cm LA Diam: 2.60 2.7-3.8/3.0-4.0 cm LAIDs Index: 1.53 1.5-2.3 cm/m2 LV Mass: 128.35 67-162/88-224 g LV Mass Index: 75.50 43-95/49-115 g/m2 LVOT Diam: 1.90 3.0+(-)1.3 cm 2D Systolic Function EF 4C: 67.20 >55% EF 2C: 67.90 >55% EF BiP: 68.60 >55% Mitral Valve MV Pk E: 0.74 MV PK A: 0.69 MV Decel Time: 347.00 E/A: 1.10 E'Lateral: 6.64 E'Medial: 5.22 E/E' Med: 14.10 E/E' Lat: 11.10 PHT: 102.00 MVA PHT: 2.16 Decel [place]: 2.13 Aortic Valve AoV Pk Randall: 1.22 AoV Mn Randall: 0.89 AoV VTI: 0.28 AoV Pk Grad: 6.00 Aov Mn Grad: 4.00 GIANNI Cont.VTI: 2.11 LVOT LVOT Pk Randall: 1.10 LVOT Mn Randall: 0.70 LVOT VTI: 0.21 LVOT Pk Grad: 5.00 LVOT Mn Grad: 2.00 LVOT Diam: 1.90 LVOT Area: 2.84 Diastolic Function MV Pk E: 0.74 MV Pk A: 0.69 E/A: 1.10 E'Medial: 5.22 E/E' Med: 14.10 E' Laterial: 6.64 E/E' Lat: 11.10 Right Ventricle TAPSE (mm): 30.00 Tricuspid Valve TR Pk Randall: 2.43 TR Pk Grad: 24.00 RA Press: 3.00 RVSP: 27.00 Great Vessels Aorta Sinus of Valsalva: 3.27 2.0-3.[address] [place]: 2.92 1.7-3.4 cm Ao Asc: 3.30 2.1-3.4 cm Ao Arch: 2.70 Updated in Other Vendor System with Status of Final Ede Watkins MD electronically signed on 12/03/2021 9:28:54 AM with status of Final
== END ==
LOC: HO.CARD 14:57
PROVIDERS: PCP Internal Medicine; Visit Provider Nurse Practitioner Family
DX: R07.9 Chest pain, unspecified (principal); R94.31 Abnormal electrocardiogram [ECG] [EKG]
CPT/HCPCS: 93306

== ENCOUNTER 2021-12-15 14:09 | Outpatient (REF) | payer MEDICARE, MEDICAID, SELFPAY ==
--- NOTE | ~2021-12-15 | XR_ITS ---
EXAMINATION: 1. RADIOGRAPHS LEFT SHOULDER 2. RADIOGRAPHS LEFT CLAVICLE CLINICAL INFORMATION: Pain COMPARISON: Radiographs left shoulder 07/08/2021 TECHNIQUE: 3 views of the left shoulder and 2 views of the left clavicle were obtained. FINDINGS: No interval healing of known distal left clavicle fracture. The proximal portion of the clavicle now projects approximately 1 cm above the distal fracture fragment. There remains good articulation on the left acromioclavicular joint with only some mild hypertrophic changes. The left humeral head demonstrates good articulation with the glenoid fossa. There is no fracture of the visualized proximal left humerus. Visualized left-sided ribs and lung parenchyma are unremarkable. XR/XR shoulder LT min 2V IMPRESSION: -No interval healing of known distal left clavicle fracture. -No fracture or dislocation of the left glenohumeral joint.
--- NOTE | ~2021-12-15 | XR_ITS ---
EXAMINATION: 1. RADIOGRAPHS LEFT SHOULDER 2. RADIOGRAPHS LEFT CLAVICLE CLINICAL INFORMATION: Pain COMPARISON: Radiographs left shoulder 07/08/2021 TECHNIQUE: 3 views of the left shoulder and 2 views of the left clavicle were obtained. FINDINGS: No interval healing of known distal left clavicle fracture. The proximal portion of the clavicle now projects approximately 1 cm above the distal fracture fragment. There remains good articulation on the left acromioclavicular joint with only some mild hypertrophic changes. The left humeral head demonstrates good articulation with the glenoid fossa. There is no fracture of the visualized proximal left humerus. Visualized left-sided ribs and lung parenchyma are unremarkable. XR/XR clavicle LT IMPRESSION: -No interval healing of known distal left clavicle fracture. -No fracture or dislocation of the left glenohumeral joint.
== END 2021-12-15 14:10 | disposition home or self-care (01) ==
LOC: HO.XRAY 14:09
PROVIDERS: PCP Nurse Practitioner Family; Visit Provider Nurse Practitioner Family
DX: M25.512 Pain in left shoulder (principal)
CPT/HCPCS: 73000; 73030

== ENCOUNTER → 2022-01-06 10:34 | Outpatient (BNVA) | payer MEDICARE, MEDICAID, SELFPAY | PROVIDERS: PCP Internal Medicine; Visit Provider Physician Assistant | DX: S42.002K Fracture of unspecified part of left clavicle, subsequent encounter for fracture with nonunion (principal); M54.12 Radiculopathy, cervical region | CPT/HCPCS: 99202 ==

== ENCOUNTER 2022-02-01 06:54 | Emergency (ER) | payer MEDICARE, MEDICAID, SELFPAY ==
--- NOTE | ~2022-02-01 | XR_ITS ---
EXAMINATION: LEFT SHOULDER AND CLAVICLE X-RAY CLINICAL INFORMATION: Pain COMPARISON: Previous x-ray November 2021 TECHNIQUE: 2 views of the left clavicle and 3 views of the left shoulder FINDINGS: There is an old displaced fracture of the left distal clavicle. This appears unchanged in alignment from November 2021 exam. No acute fracture or dislocation is seen. There is mild arthritis at the acromioclavicular joint. The glenohumeral joint is normal. The bones are osteopenic. There is mild soft tissue swelling adjacent to the distal clavicle fracture. XR/XR clavicle LT IMPRESSION: Old ununited displaced left distal clavicle fracture similar to November 2021 exam. Mild arthritis at the acromioclavicular joint. Osteopenia.
--- NOTE | ~2022-02-01 | XR_ITS ---
EXAMINATION: LEFT SHOULDER AND CLAVICLE X-RAY CLINICAL INFORMATION: Pain COMPARISON: Previous x-ray November 2021 TECHNIQUE: 2 views of the left clavicle and 3 views of the left shoulder FINDINGS: There is an old displaced fracture of the left distal clavicle. This appears unchanged in alignment from November 2021 exam. No acute fracture or dislocation is seen. There is mild arthritis at the acromioclavicular joint. The glenohumeral joint is normal. The bones are osteopenic. There is mild soft tissue swelling adjacent to the distal clavicle fracture. XR/XR shoulder LT min 2V IMPRESSION: Old ununited displaced left distal clavicle fracture similar to November 2021 exam. Mild arthritis at the acromioclavicular joint. Osteopenia.
[2022-02-01 06:56] VITALS: BP 169/66; PULSE 67; RESP 18; TEMP 36.7; O2SAT 99; BMI 20.5
--- NOTE | 2022-02-01 08:16 | ED.EXTPRO ---
HPI - Extremity Problem General Chief complaint: Extremity Injury, Upper Stated complaint: L Shoulder/Back pain Time Seen by Provider: 02/01/22 07:53 Source: patient Mode of arrival: ambulatory Limitations: no limitations History of Present Illness HPI Narrative: 76-year-old female history of left clavicular fracture 7 month ago after she fell, patient has been complaining of left clavicular/left shoulder/left side neck pain, uncontrolled with [id number] ibuprofen/Tylenol, pain is more when patient moved her arm or walking, patient has been evaluated by PCP for the pain. No new injuries or recent fall. Related Data Previous Rx's Medication Instructions Recorded diclofenac sodium 1 % topical gel 2 g topical QID #100 grams 12/15/21 (Voltaren Arthritis Pain) sennosides 8.6 mg tablet (Senokot) 8.6 mg PO BEDTIME PRN constipation 12/15/21 #30 tabs alendronate 70 mg tablet 70 mg PO QWEEK 90 days #13 tabs 12/18/21 lidocaine 5 % topical patch 1 patch topical Q24H 30 days #30 ea 01/06/22 acetaminophen 325 mg tablet 325 - 650 mg PO Q6H PRN fever or 01/29/22 pain #30 tabs ibuprofen 400 mg tablet 400 mg PO Q6H PRN pain #30 tabs 01/29/22 Allergies Allergy/AdvReac Type Severity Reaction Status Date / Time елена Allergy Intermediate Rash Verified 01/27/22 14:15 Review of Systems Review of Systems: All other systems are reviewed and are negative Constitutional: Reports as per HPI and Reports no additional constitutional complaints Eyes: Reports as per HPI and Reports no additional eye complaints Reports system reviewed and no additional complaints, except as documented Cardiovascular: Reports as per HPI and Reports no additional cardiovascular complaints Respiratory: Reports as per HPI and Reports no additional respiratory complaints Gastrointestinal: Reports as per HPI and Reports no additional gastrointestinal complaints Genitourinary: Reports no additional female genitourinary complaints Musculoskeletal: Reports no additional musculoskeletal complaints Skin/Breast: Reports system reviewed and no additional complaints, except as docu Psychiatric: Reports no additional psychiatric complaints Endocrine: Reports no additional endocrine complaints Hematologic/Lymphatic: Reports no additional hematologic/lymphatic complaints Allergic/Immunologic: Reports no additional allergic/immunologic complaints Reports system reviewed and no additional complaints, except as documented and Reports Abnormal speech present [facility] Past Medical History Medical History Abnormal EKG Age related osteoporosis Anxiety Blurry vision Cervical radiculopathy due to degenerative joint disease of spine Cervical spondylosis with radiculopathy Chest pain Chest pain Clavicle fracture Cognitive impairment Cold extremities Constipation by delayed colonic transit COVID-19 virus infection Degenerative disc disease, cervical Encounter for Medicare annual wellness exam Headache Hearing loss Left shoulder pain Left upper quadrant abdominal pain Loss of balance Lumbar pain Mass of left foot Numbness Osteoporosis Peripheral vascular disease Positive Romberg test Renal calculi Shoulder pain Sinus pain Skin lesion Skin rash Thyroid nodule Surgical History No pertinent past surgical history Family History Family History Father No problems noted. Mother Cancer Skin cancer Sister Skin cancer Social History Social History Housing: Assisted Living Facility Alcohol intake: current Alcohol intake frequency: does not drink Alcohol type: wine Patient Tobacco Use Status: Never used Tobacco e-Cigarette/Vaping Use: Never Used Second Hand Smoke Exposure: Yes Advance Directives: Yes Advance Directives Information Provided: No Advance Directives on File: No service: No Current occupational status: retired Cognitive needs: No Hearing needs: No Vision needs: No Physical Exam Vital Signs: Vital Signs: Last Vital Signs Temp 98.1 F 02/01/22 06:56 Pulse 67 02/01/22 06:56 Resp 18 02/01/22 06:56 BP 169/66 H 02/01/22 06:56 Pulse Ox 99 02/01/22 06:56 O2 Del Method 02/01/22 06:56 BMI result Body Mass Index 20.5 Vital signs have been reviewed as appeared to be correct. Blood pressure normal. Heart rate normal. Respiration rate normal. Temperature normal. Oxygen saturation normal. Appearance: Alert. Oriented X3. No acute distress. Head: Normal external exam. Normocephalic. Atraumatic. No Coy signs noted. No raccoon eyes noted Eyes: PERRLA. EOMI. Conjunctiva and sclera normal. Eyelids normal. ENT: TM's Normal. Pharynx normal. Uvula midline. Moist mucous membranes. No trismus noted. No drooling noted. No muffled voice noted. Neck: Normal inspection. Neck supple. FROM. No adenopathy. Thyroid Normal. No meningeal signs. No neck mass noted. CVS: Normal heart rate and rhythm. Heart sound normal. No murmurs noted. Pulses normal throughout. Respiratory: No respiratory distress. Painless inspiration. Breath sounds normal. No wheezes/rales/rhonchi noted. Chest nontender. No accessory muscle usage noted or decreased air movement noted. Abdomen: Soft and nontender. Bowel sounds normal in all 4 quadrants. No distention noted. No organomegaly noted. No visible injury noted. Back: No CVA tenderness. Full range of motion noted. Skin: Skin warm and dry. Normal skin color. Normal skin turgor. No rashes/lesions/lacerations noted. Extremities: No lower extremity edema. Extremities exhibit normal range of motion. Extremities nontender. Neuro: Oriented X 3. Cranial nerve exam: II-XII are grossly intact No motor deficit. No sensory deficit. Reflexes normal. Course Course Course Narrative: Assessment and plan. 76-year-old female came in with left clavicular/left-sided neck/left shoulder pain for 7 months after she broke the left clavicle, x-ray today showed healing, patient received 1 dose of oxycodone today and patient was instructed to follow-up with her PCP and get a referral to [facility]. MDM - Extremity (Nontraumatic) Imaging Data Left shoulder/left clavicle her x-ray: Attestation: I personally reviewed and interpreted this imaging study as follows: Radiologist's impression: Old ununited displaced left distal clavicle fracture similar to November 2021 exam. Mild arthritis at the acromioclavicular joint. Osteopenia.? Discharge Plan Discharge Clinical Impression: Chronic left shoulder pain Patient Disposition: Home, Self-Care Instructions: Chronic Pain (ED) Prescriptions: No Action acetaminophen 325 mg tablet 325 - 650 mg PO Q6H PRN (Reason: fever or pain) Qty: 30 0RF ibuprofen 400 mg tablet 400 mg PO Q6H PRN (Reason: pain) Qty: 30 0RF diclofenac sodium [Voltaren Arthritis Pain] 1 % gel 2 g topical QID Qty: 100 0RF Rx Instructions: apply to single elbow, wrist or hand; for hand includes palm/fingers/back of hand sennosides [Senokot] 8.6 mg tablet 8.6 mg PO BEDTIME PRN (Reason: constipation) Qty: 30 0RF alendronate 70 mg tablet 70 mg PO QWEEK 90 Days Qty: 13 1RF Rx Instructions: Take pill with 8 oz of water and do not lay down for an hour after taking alendronate lidocaine 5 % adhesive patch,medicated 1 patch topical Q24H 30 Days Qty: 30 0RF Rx Instructions: leave on most painful area for up to 12 hrs Referrals: Yuli Vieira MD [Primary Care Provider] -
[2022-02-01] MEDS: oxyCODONE HCl Immed Release 5 MG TABLET PO (08:29)
== END 2022-02-01 09:52 | disposition home or self-care (01) ==
PROVIDERS: Emergency Provider Emergency Medicine; PCP Internal Medicine
DX: G89.29 Other chronic pain (principal); M25.512 Pain in left shoulder; Z87.81 Personal history of (healed) traumatic fracture
CPT/HCPCS: 73000; 73030; 99283

== ENCOUNTER 2022-02-16 14:00 | Outpatient (RCR) | payer MEDICARE, MEDICAID, SELFPAY | END 2022-03-26 07:43 | disposition home or self-care (01) | LOC: HO.PT 14:00 | PROVIDERS: PCP Internal Medicine; Visit Provider Internal Medicine | DX: S42.009G Fracture of unspecified part of unspecified clavicle, subsequent encounter for fracture with delayed healing (principal) | CPT/HCPCS: 97110; 97140; 97162; 97163 ==

== ENCOUNTER 2022-02-25 17:06 | Emergency (ER) | payer MEDICARE, MEDICAID, SELFPAY ==
[2022-02-25 17:24] VITALS: BP 141/66; PULSE 63; RESP 18; TEMP 36.8; O2SAT 99; BMI 20.5
--- NOTE | 2022-02-25 17:26 | ECG_ITS ---
Test Reason : chest pain Blood Pressure : / mmHG Vent. Rate : 058 BPM Atrial Rate : 058 BPM P-R Int : 138 ms QRS Dur : 076 ms QT Int : 410 ms P-R-T Axes : 061 -37 050 degrees QTc Int : 402 ms Sinus bradycardia Left axis deviation Minimal voltage criteria for LVH, may be normal variant ( R in aVL ) Nonspecific ST abnormality Abnormal ECG When compared with ECG of 08-SEP-2021 14:52, Aberrant conduction is no longer Present Referred By: Generic ED Physician Electronically Signed By:Serge Regan
== END 2022-02-25 20:02 | disposition left against medical advice (07) ==
PROVIDERS: Emergency Provider Emergency Medicine; PCP Internal Medicine
DX: R07.9 Chest pain, unspecified (principal); R51.9 Headache, unspecified
CPT/HCPCS: 93005; 99282; 99283

== ENCOUNTER → 2022-03-24 13:10 | Outpatient (BNVA) | payer MEDICARE, MEDICAID, SELFPAY | PROVIDERS: PCP Internal Medicine; Visit Provider Physician Assistant | DX: S42.002K Fracture of unspecified part of left clavicle, subsequent encounter for fracture with nonunion (principal); G89.29 Other chronic pain; M25.512 Pain in left shoulder; R41.3 Other amnesia | CPT/HCPCS: 99212 ==

== ENCOUNTER 2022-03-28 12:13 | Emergency (ER) | payer MEDICARE, MEDICAID, SELFPAY ==
--- NOTE | ~2022-03-28 | XR_ITS ---
EXAMINATION: XR SHOULDER, LEFT CLINICAL INFORMATION: Fracture clavicle COMPARISON: Prior study 02/01/2022 TECHNIQUE: AP external rotation, Grashey, scapular Y, and axillary views of the left shoulder. FINDINGS: There is a displaced fracture of the distal clavicle, the proximal diaphysis is displaced upward by approximately 2.8 cm, there are no other fractures, this has not significantly changed. XR/XR shoulder LT min 2V IMPRESSION: Redemonstration of displaced fracture of the distal left clavicle. Shoulder joint otherwise remain intact.
[2022-03-28 12:24] VITALS: BP 152/51; PULSE 74; RESP 19; TEMP 37; O2SAT 98; BMI 25.2
--- NOTE | 2022-03-28 14:23 | ED.EXTPRO ---
HPI - Extremity Problem General Chief complaint: Extremity Injury, Upper Stated complaint: L Shoulder/Arm Pain S/P Injury in Oct Time Seen by Provider: 03/28/22 14:23 History of Present Illness HPI Narrative: Patient complains of continued pain in left shoulder clavicle area since a fall many months ago where she broke her clavicle There is no new injury there is no neck pain there is no numbness weakness or tingling, no fever no chest pain Related Data Previous Rx's Medication Instructions Recorded diclofenac sodium 1 % topical gel 2 g topical QID #100 grams 12/15/21 (Voltaren Arthritis Pain) sennosides 8.6 mg tablet (Senokot) 8.6 mg PO BEDTIME PRN constipation 12/15/21 #30 tabs alendronate 70 mg tablet 70 mg PO QWEEK 90 days #13 tabs 12/18/21 lidocaine 5 % topical patch 1 patch topical Q24H 30 days #30 ea 01/06/22 acetaminophen 325 mg tablet 325 - 650 mg PO Q6H PRN fever or 01/29/22 pain #30 tabs ibuprofen 400 mg tablet 400 mg PO Q6H PRN pain #30 tabs 03/24/22 diclofenac sodium 1 % topical gel 4 g topical QID PRN Shoulder pain 03/28/22 #100 grams lidocaine 5 % topical patch 1 patch topical DAILY PRN Shoulder 03/28/22 pain #15 ea Allergies Allergy/AdvReac Type Severity Reaction Status Date / Time елена Allergy Intermediate Rash Verified 03/24/22 13:15 Review of Systems Review of Systems: Positive for left shoulder pain Negatives are no fever no chills no dizziness or weakness no headache no neck pain no chest pain no numbness weakness or tingling no rash Yes all other systems are reviewed and are negative [facility] Past Medical History Source: nursing notes reviewed Medical History Abnormal EKG Age related osteoporosis Anxiety Blurry vision Cervical radiculopathy due to degenerative joint disease of spine Cervical spondylosis with radiculopathy Chest pain Chest pain Clavicle fracture Cognitive impairment Cold extremities Constipation by delayed colonic transit COVID-19 virus infection Degenerative disc disease, cervical Encounter for Medicare annual wellness exam Headache Hearing loss Left shoulder pain Left upper quadrant abdominal pain Loss of balance Lumbar pain Mass of left foot Numbness Osteoporosis Peripheral vascular disease Positive Romberg test Renal calculi Shoulder pain Sinus pain Skin lesion Skin rash Thyroid nodule Surgical History No pertinent past surgical history Family History Family History Father No problems noted. Mother Cancer Skin cancer Sister Skin cancer Social History Social History Housing: Assisted Living Facility Alcohol intake: current Alcohol intake frequency: does not drink Alcohol type: wine Patient Tobacco Use Status: Never used Tobacco e-Cigarette/Vaping Use: Never Used Second Hand Smoke Exposure: Yes Advance Directives: Yes Advance Directives Information Provided: Yes Advance Directives on File: No service: No Current occupational status: retired Cognitive needs: No Hearing needs: No Vision needs: No Physical Exam Vital Signs: Vital Signs: Last Vital Signs Temp 98.6 F 03/28/22 12:24 Pulse 74 03/28/22 12:24 Resp 19 03/28/22 12:24 BP 152/51 H 03/28/22 12:24 Pulse Ox 98 03/28/22 12:24 O2 Del Method 03/28/22 12:24 BMI result Body Mass Index 25.2 General appearance is no acute distress Head is normocephalic atraumatic Neck is supple nontender Chest is clear to auscultation bilateral, chest wall is nontender The left shoulder exam there is mostly posterior tenderness of the left shoulder, the skin is normal there is no deformity, there is some anterior shoulder tenderness as well, skin is normal in appearance no rash, range of motion is limited on extension abduction and external rotation, neurovascular intact distal Other extremities normal Neuro gait and balance are normal, interaction both expression and comprehension are normal Course Course Course Narrative: X-ray was unchanged from prior showing displaced clavicle fracture, no other significant findings Patient is advised to follow with Orthopedics and Pain Management and if she needs a 2nd opinion I gave phone number of [facility] She can continue to follow with [facility] where she has been seen before and with pain management which had ordered physical therapy for her Discharge Plan Discharge Clinical Impression: Acute pain of left shoulder Patient Disposition: Home, Self-Care Additional Instructions: Follow with orthopedist If you want a 2nd opinion You can follow with [facility] [phone] Return any time if worse Prescriptions: New diclofenac sodium 1 % gel 4 g topical QID PRN (Reason: Shoulder pain) Qty: 100 0RF Rx Instructions: apply to single knee, ankle, foot; for foot includes sole/toes/top of foot lidocaine 5 % adhesive patch,medicated 1 patch topical DAILY PRN (Reason: Shoulder pain) Qty: 15 0RF Rx Instructions: leave on most painful area for up to 12 hrs No Action acetaminophen 325 mg tablet 325 - 650 mg PO Q6H PRN (Reason: fever or pain) Qty: 30 0RF ibuprofen 400 mg tablet 400 mg PO Q6H PRN (Reason: pain) Qty: 30 0RF diclofenac sodium [Voltaren Arthritis Pain] 1 % gel 2 g topical QID Qty: 100 0RF Rx Instructions: apply to single elbow, wrist or hand; for hand includes palm/fingers/back of hand sennosides [Senokot] 8.6 mg tablet 8.6 mg PO BEDTIME PRN (Reason: constipation) Qty: 30 0RF alendronate 70 mg tablet 70 mg PO QWEEK 90 Days Qty: 13 1RF Rx Instructions: Take pill with 8 oz of water and do not lay down for an hour after taking alendronate lidocaine 5 % adhesive patch,medicated 1 patch topical Q24H 30 Days Qty: 30 0RF Rx Instructions: leave on most painful area for up to 12 hrs Interventions: ED Discharge Assessment Last Done: 03/28/22 14:39 Discharge Date/Time: 03/28/22 14:40
== END 2022-03-28 14:40 | disposition home or self-care (01) ==
PROVIDERS: Emergency Provider Emergency Medicine; PCP Internal Medicine
DX: M25.512 Pain in left shoulder (principal)
CPT/HCPCS: 73030; 99282; 99283

== ENCOUNTER → 2022-03-31 13:02 | Outpatient (BNVA) | payer MEDICARE, MEDICAID, SELFPAY | PROVIDERS: PCP Internal Medicine; Visit Provider Nurse Practitioner Family | DX: M54.12 Radiculopathy, cervical region (principal); M25.512 Pain in left shoulder; G89.29 Other chronic pain; M43.12 Spondylolisthesis, cervical region; Z87.81 Personal history of (healed) traumatic fracture; Z79.899 Other long term (current) drug therapy | CPT/HCPCS: 20552; 20553; 99202 ==

== ENCOUNTER 2022-04-16 05:14 | Emergency (ER) | payer MEDICARE, MEDICAID, SELFPAY ==
--- NOTE | 2022-04-16 05:35 | ECG_ITS ---
Test Reason : CP Blood Pressure : / mmHG Vent. Rate : 074 BPM Atrial Rate : 074 BPM P-R Int : 138 ms QRS Dur : 076 ms QT Int : 372 ms P-R-T Axes : 059 -35 039 degrees QTc Int : 412 ms Normal sinus rhythm Left axis deviation Moderate voltage criteria for LVH, may be normal variant ( R in aVL , [place] product ) Abnormal ECG When compared with ECG of 25-FEB-2022 17:23, No significant change was found Referred By: Generic ED Physician Electronically Signed By:REYES HENNING
[2022-04-16 05:36] VITALS: BP 146/68; PULSE 76; RESP 18; TEMP 36.4; O2SAT 100; BMI 20.7
[2022-04-16 05:47] LABS: Hematocrit 40.4 % (37.0-47.0); Hemoglobin 13.3 g/dl (12.0-16.0); Mean Corpuscular HGB Conc 32.9 g/dl (31.0-35.0); Mean Corpuscular Volume 91.2 fL (80.0-98.0); Mean Platelet Volume 9.3 fL (9.4-12.3); Platelet Count 253 X10*3/uL (160-400); Red Blood Count 4.43 X10*6/uL (4.20-5.50); Red Cell Distribution Width 13.1 % (11.0-16.0); White Blood Count 5.7 X10*3/uL (4.8-10.8)
[2022-04-16 06:25] LABS: Troponin-I High Sensitivity 4.5 ng/L (<3.5-17.0)
[2022-04-16 06:33] LABS: COVID-19 Test Negative (Negative); IDNOW Serial# 16C4AD1C
[2022-04-16 07:30] LABS: Alanine Aminotransferase 18 U/L (0-31); Albumin Level 4.1 g/dL (3.5-5.0); Alkaline Phosphatase 96 U/L (39-117); Anion Gap 11 (12-20); Aspartate Amino Transferase 25 U/L (5-31); Bilirubin Total 0.4 mg/dL (0.0-1.0); Blood Urea Nitrogen 13 mg/dL (9-16); Calcium 9.4 mg/dL (8.4-10.2); Carbon Dioxide 27 mmol/L (22-29); Chloride 103 mmol/L (96-108); Creatinine Clr Calc Pharmacy 63.1; Estimated Glomerular Filt Rate > 60; Glucose Random 87 mg/dL (60-115); Potassium 3.9 mmol/L (3.3-5.1); Sodium 137 mmol/L (135-145); Total Protein 6.8 g/dL (6.5-8.0)
--- NOTE | 2022-04-16 08:09 | PC.NURSE ---
ATTEMPTED TO CALL PATIENT INTO ED AT 0730. NO ANSWER IN WAITING ROOM
== END 2022-04-16 09:32 | disposition left against medical advice (07) ==
LOC: HO.ED 09:32
PROVIDERS: Emergency Provider Emergency Medicine
DX: R07.9 Chest pain, unspecified (principal); Z20.822 Contact with and (suspected) exposure to COVID-19
CPT/HCPCS: 36415; 80053; 84484; 85027; 87635; 93005; 99283

== ENCOUNTER → 2022-06-09 10:33 | Outpatient (BNVA) | payer MEDICARE, MEDICAID, SELFPAY | PROVIDERS: PCP Internal Medicine; Visit Provider Psychiatry & Neurology Neurology | DX: M81.0 Age-related osteoporosis without current pathological fracture (principal); R41.3 Other amnesia; R47.89 Other speech disturbances | CPT/HCPCS: 99202 ==

== ENCOUNTER 2022-06-26 11:52 | Outpatient (REF) | payer MEDICARE, MEDICAID, SELFPAY ==
[2022-06-26 14:01] LABS: Thyroid Stimulating Hormone 0.86 uIU/mL (0.32-4.0); Vitamin D 25-OH Total 33.9 ng/mL (>30)
[2022-06-26 14:45] LABS: Folate 11.4 ng/mL (> or = 4.0); Vitamin B12 463 pg/mL (200-900)
== END 2022-06-26 11:53 | disposition home or self-care (01) ==
LOC: HO.LAB 11:52
PROVIDERS: PCP Internal Medicine; Visit Provider Internal Medicine
DX: E55.9 Vitamin D deficiency, unspecified (principal); R41.3 Other amnesia
CPT/HCPCS: 36415; 82306; 82607; 82746; 84443

== ENCOUNTER 2022-07-15 10:22 | Outpatient (REF) | payer MEDICARE, MEDICAID, SELFPAY ==
--- NOTE | ~2022-07-15 | MR_ITS ---
EXAMINATION: MR BRAIN WITHOUT CONTRAST CLINICAL INFORMATION: Amnesia. Fall in June 2021. COMPARISON: CT head from 07/08/2021. TECHNIQUE: Multiplanar, multisequence MR imaging was performed through the brain without the use of intravenous gadolinium. Additional high-resolution anatomic imaging was performed through the brain and images were submitted for post processing including auto-segmentation and volumetric analysis. FINDINGS: No focal restricted diffusion is demonstrated to suggest acute or subacute cerebral ischemia. No evidence of acute or chronic hemorrhagic products on heme-sensitive imaging. Scattered periventricular and deep white matter T2 FLAIR hyperintensities consistent with mild underlying microangiopathy. Proportional prominence of the ventricles and sulcal spaces without evidence of obstructive hydrocephalus. No abnormal mass effect. No midline shift. Normal appearance of the pituitary gland. Normal positioning of the cerebellar tonsils. Normal arterial and venous vascular flow voids are present. Normal, homogeneous marrow signal. Mild mucosal thickening of the paranasal sinuses. No signal abnormalities within the mastoids. Baseline NeuroQuant volumetric assessment of the hippocampi was subsequently performed. Quantitative hippocampal volumes are estimated at an age-adjusted normative percentile of 56%. Superior lateral ventricular size is estimated at a normative percentile rank of 51%, and the inferior lateral ventricles are estimated at 65%. MR/MR brain wo con w neuroquant IMPRESSION: 1. No acute intracranial abnormalities. 2. Mild underlying microangiopathy and generalized cerebral volume loss. 3. Volumetric analysis does not support neurodegeneration.
== END 2022-07-15 10:23 | disposition home or self-care (01) ==
LOC: HO.MRI 10:22
PROVIDERS: Visit Provider Psychiatry & Neurology Neurology
DX: R41.3 Other amnesia (principal)
CPT/HCPCS: 70551; 76377

== ENCOUNTER → 2022-12-08 13:04 | Outpatient (BNVA) | payer MEDICARE, MEDICAID, SELFPAY | PROVIDERS: PCP Internal Medicine; Visit Provider Psychiatry & Neurology Neurology | DX: R41.3 Other amnesia (principal); R47.89 Other speech disturbances; H91.90 Unspecified hearing loss, unspecified ear | CPT/HCPCS: 99212 ==

== ENCOUNTER 2023-03-01 14:05 | Outpatient (AMB) | payer MEDICARE, MEDICAID, SELFPAY ==
[2023-03-01 14:07] VITALS: BP 130/80; BMI 20.4
--- NOTE | 2023-03-01 14:07 | MHC.PC.OV ---
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 Accompanied by: Self / Same As Patient Allergies елена Allergy (Intermediate, Verified 03/01/23 14:14) Rash Medication List - Last Reconciled 03/01/23 by Yuli Gray MD memantine (Namenda XR) 7 mg PO DAILY Tobacco use date assessed: 08/27/22 Fall risk assessment: No Falls in past year Last assessed Fall Risk: 03/01/23 Dental Screening Dental Screen Date: 03/01/23 Did you have a dental visit in the last 12 months?: Yes Did you have a dental problem in the last 6 months where you did not have access to dental care?: No Was dental information given to patient?: Patient has dentist HPI HPI Comments History of Present Illness Details This is a 78-year-old female that comes alone today still complaining of memory deficit and skin lesion in the neck. She was referred in December to Dermatology again. She does not remember if she went. She does follows with Neurology but has forget to take her medication. Denies any chest pain or shortness of breath. Patient is awake, alert and oriented to time, person and place. [facility] Medical History Abnormal EKG Age related osteoporosis Anxiety Blurry vision Cervical radiculopathy due to degenerative joint disease of spine Cervical spondylosis with radiculopathy Chest pain Chest pain Clavicle fracture Cognitive impairment Cold extremities Constipation by delayed colonic transit COVID-19 virus infection Degenerative disc disease, cervical Encounter for Medicare annual wellness exam Headache Hearing loss Left shoulder pain Left upper quadrant abdominal pain Loss of balance Lumbar pain Mass of left foot Numbness Osteoporosis Peripheral vascular disease Positive Romberg test Renal calculi Shoulder pain Sinus pain Skin lesion Skin rash Thyroid nodule Surgical History No pertinent past surgical history Family History Father No problems noted. Mother Cancer Skin cancer Sister Skin cancer Sister Lung cancer Social History Housing: Assisted Living Facility Alcohol intake: current Alcohol intake frequency: holidays/special occasions only Alcohol type: wine Patient Tobacco Use Status: Never used Tobacco e-Cigarette/Vaping Use: Never Used Second Hand Smoke Exposure: Yes service: No Current occupational status: retired Cognitive needs: No Hearing needs: No Vision needs: No Questionnaire Thrive Questionnaire Date Thrive assessed: 08/27/22 CEZAR-7 AMB Questionnaire CEZAR-7 Date CEZAR - 7 assessed: 08/27/22 Source: Developed by Drs. Tam Marcos, Crissy Akbar, Trav Beck and colleagues, with an educational silverio from [employer]. Review of Systems Const All systems reviewed & are unremarkable except as noted in HPI and below Eyes Reports no additional complaints, Denies change in vision and Denies other visual disturbances Card Denies chest pain at rest, Denies chest pain with activity, Denies edema, Denies irregular heart rhythm, Denies claudication, Denies dyspnea, Denies dyspnea on exertion, Denies orthopnea, Denies paroxysmal nocturnal dyspnea and Denies slow heart rate Resp Denies cough, Denies dyspnea and Denies dyspnea on exertion GI Denies abdominal pain, Denies change in bowel habits, Denies excessive flatus, Denies nausea and Denies vomiting Denies urinary incontinence, Denies urinary hesitancy and Denies urinary urgency Musc Denies abnormal gait, Denies atrophy, Denies deformity and Denies limited range of motion Skin/Breast Denies bleeding lesions, Denies changing lesions, Reports non-healing lesions and Denies rash Neuro Denies abnormal gait, Denies confusion, Denies lack of coordination and Reports memory loss Psych Denies confusion and Reports memory loss Physical exam (Primary Care) Vital Signs: Last Vital Signs BP 130/80 03/01/23 14:07 BMI result Body Mass Index 20.4 Tobacco/Smoking Status: Tobacco use Status Tobacco use date assessed 08/27/22 03/01/23 14:12 Patient Tobacco Use Status Never used Tobacco 03/01/23 14:12 e-Cigarette/Vaping Use Never Used 03/01/23 14:12 Thrive Assessment: Date of Thrive Assessment Date Thrive assessed 08/27/22 03/01/23 14:12 Const General: No confusion Orientation/consciousness: patient oriented x3 and No confusion Eyes General: appearance normal, both eyes and all related structures Eyelids: Yes eyelids normal Conjunctivae: conjunctivae normal Neck Neck: Yes normal visual inspection and Yes supple Resp Effort & Inspection: normal respiratory effort Auscultation: clear to auscultation bilaterally Cardio Jugular venous distension: no JVD Rate: regular rate Rhythm: regular rhythm Heart sounds: S1 normal heart sound present and S2 normal heart sound present Skin General skin exam: no rashes or lesions noted Neuro General: patient oriented x3, no focal motor deficits and No confusion Extrem General: Yes full ROM Assessment and Plan Assessment & Plan (1) Skin lesion: Code(s): L98.9 - Disorder of the skin and subcutaneous tissue, unspecified Plan: Follow-up with Dermatology. (2) Memory deficit: Comment: age related ? post concussive Code(s): R41.3 - Other amnesia Plan: Restart Namenda. Follow-up with Neurology. Medications: Refilled memantine (Namenda XR) 7 mg PO DAILY 30 ea 3RF Coding Level of Care Code Est Pt Level 3 (17562) Diagnoses Skin lesion L98.9 Memory deficit R41.3 Time Spent (min) 17
== END 2023-03-01 14:26 | disposition home or self-care (01) ==
PROVIDERS: PCP Internal Medicine; Visit Provider Internal Medicine
DX: L98.9 Disorder of the skin and subcutaneous tissue, unspecified (principal); R41.3 Other amnesia
CPT/HCPCS: 99213

== ENCOUNTER 2023-05-04 10:36 | Outpatient (AMB) | payer MEDICARE, MEDICAID, SELFPAY ==
--- NOTE | 2023-05-04 11:00 | A.OFFPC_ITS ---
Vital Signs 05/04/23 11:02 Height 5 ft 8 in Weight 129 lb 6 oz BMI 19.7 BP 120/60 Blood Pressure Location Lt brachial Position Sitting Intake Visit Reasons: Eye complaints Intake Note: Patient is here today for right eye complaint. 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: Not Required per policy Accompanied by: Self / Same As Patient Allergies елена Allergy (Intermediate, Verified 05/04/23 11:02) Rash Tobacco use date assessed: 05/04/23 Fall risk assessment: No Falls in past year Last assessed Fall Risk: 05/04/23 Dental Screening Dental Screen Date: 05/04/23 Did you have a dental visit in the last 12 months?: No Did you have a dental problem in the last 6 months where you did not have access to dental care?: No Was dental information given to patient?: No HPI HPI Comments History of Present Illness Details 78-year-old female past medical history significant for cervical radiculopathy, anxiety, constipation osteoporosis, PVD, cognitive impairment and Raynaud's. Patient of presents today for seen today visit for right eye redness and bruising. Patient denies any injury that she can remember. Patient reports she woke up with black and blue around her eye. Patient does not recall any acute injury and she does not remember falling. Patient alert and oriented x3 in office, does report that she has been having some memory difficulties recently and has recently stopped driving due to this. Offered to call patient ambulance from office to be brought to the emergency room for further evaluation for likely unwittnessed fall/possible syncope patient does not have memory off. Patient declined ambulance transfer she states she will just walk across the to the emergency room. Given patient is alert and oriented x3 in office agreed to let patient walk across to ER, ER called in notified to expect patient. Patient denies any chest pain palpitations, no neurological deficits noted 1300: Does not appear that patient pres ented to the emergency room for further evaluation, patient called no answer LM to call office back, patients son Antonio called that was listed as secondary contact and notified of above and recommended his mother got to the emergency room for further evaluation. Patient's son verbalizes understanding and is going to contact his mother immediately. [facility] Medical History Abnormal EKG Age related osteoporosis Anxiety Blurry vision Cervical radiculopathy due to degenerative joint disease of spine Cervical spondylosis with radiculopathy Chest pain Chest pain Clavicle fracture Cognitive impairment Cold extremities Constipation by delayed colonic transit COVID-19 virus infection Degenerative disc disease, cervical Encounter for Medicare annual wellness exam Headache Hearing loss Left shoulder pain Left upper quadrant abdominal pain Loss of balance Lumbar pain Mass of left foot Numbness Osteoporosis Peripheral vascular disease Positive Romberg test Renal calculi Shoulder pain Sinus pain Skin lesion Skin rash Thyroid nodule Surgical History No pertinent past surgical history Family History Father No problems noted. Mother Cancer Skin cancer Sister Skin cancer Sister Lung cancer Social History Housing: Assisted Living Facility Alcohol intake: current Alcohol intake frequency: holidays/special occasions only Alcohol type: wine Patient Tobacco Use Status: Never used Tobacco e-Cigarette/Vaping Use: Never Used Second Hand Smoke Exposure: Yes service: No Current occupational status: retired Cognitive needs: No Hearing needs: No Vision needs: No Questionnaire Thrive Questionnaire Date Thrive assessed: 08/27/22 CEZAR-7 AMB Questionnaire CEZAR-7 Date CEZAR - 7 assessed: 08/27/22 Source: Developed by Drs. Tam Marcos, Crissy Akbar, Trav Beck and colleagues, with an educational silverio from [employer]. Review of Systems Const Denies chills, Denies fatigue, Denies fever(s) and Denies poor appetite Eyes Denies no additional complaints ENT Reports Normal hearing present Card Denies chest pain, Denies syncope, Denies rapid heart rate and Denies dyspnea Resp Denies cough and Denies dyspnea GI Denies change in stool character, Denies constipation, Denies diarrhea, Denies nausea and Denies vomiting Denies urinary frequency, Denies dysuria and Denies urinary urgency Neuro Reports Normal hearing present, Denies confusion and Denies syncope Psych Denies confusion Endo Denies fatigue Physical exam (Primary Care) Vital Signs: Last Vital Signs BP 120/60 05/04/23 11:02 BMI result Body Mass Index 19.7 Tobacco/Smoking Status: Tobacco use Status Tobacco use date assessed 05/04/23 05/04/23 11:10 Patient Tobacco Use Status Never used Tobacco 05/04/23 11:10 e-Cigarette/Vaping Use Never Used 05/04/23 11:10 Thrive Assessment: Date of Thrive Assessment Date Thrive assessed 08/27/22 05/04/23 11:10 Const General: No confusion Orientation/consciousness: No confusion HENMT Head: Yes normocephalic and Yes atraumatic Eyes Conjunctivae: conjunctivae normal Chest Chest palpation & inspection: normal inspection of the chest Resp Effort & Inspection: normal respiratory effort Auscultation: clear to auscultation bilaterally, no crackles, no rhonchi and no wheezes Cardio Rate: regular rate Rhythm: regular rhythm Heart sounds: S1 normal heart sound present and S2 normal heart sound present GI Inspection: Yes normal to inspection Skin Other: large circular ecchymosis noted around left eye, extending down left cheek. 1cm scabbed superficial abrasion left eyelid. Neuro General: No confusion Cranial nerves: Yes Normal hearing present Extrem General: No edema Assessment and Plan Assessment & Plan (1) Unwitnessed fall: Code(s): R29.6 - Repeated falls Plan: Given patient has no recollection of likely fall and possible syncope advised to go to the emergency room for further evaluation and treatment. (2) Memory deficit: Comment: age related ? post concussive Code(s): R41.3 - Other amnesia Plan: Patient advised to continue Namenda, refill sent Plan Keep scheduled follow-up PCP Medications: Refilled memantine (Namenda XR) 7 mg PO DAILY 30 ea 3RF Coding Level of Care Code Est Pt Level 3 (13801) Diagnoses Unwitnessed fall R29.6 Memory deficit R41.3
[2023-05-04 11:02] VITALS: BP 120/60; BMI 19.7
== END 2023-05-04 11:39 | disposition home or self-care (01) ==
PROVIDERS: PCP Internal Medicine; Visit Provider Nurse Practitioner Family
DX: R29.6 Repeated falls (principal); R41.3 Other amnesia
CPT/HCPCS: 99213

== ENCOUNTER 2024-04-11 09:03 | Inpatient (IN) | payer MEDICARE, MEDICAID, SELFPAY ==
[2024-04-11] VITALS (7 sets, daily range): BP systolic 114–145; BP diastolic 51–82; PULSE 61–74; RESP 14–21; TEMP 36.1–37.2; O2SAT 95–98; BMI 20.7
--- NOTE | ~2024-04-11 | CT_ITS ---
EXAMINATION: CT ABDOMEN AND PELVIS WITHOUT CONTRAST CLINICAL INFORMATION: Lumbosacral pain COMPARISON: CT abdomen and pelvis from 02/21/2021 TECHNIQUE: Multidetector volumetric imaging was performed from the superior aspect of the liver through the pubic symphysis. Sagittal and coronal reformatted images were obtained on the technologist's workstation. This CT examination was performed using dose optimization techniques as appropriate, variously including the following: *Automated exposure control *Adjustment of mA and/or kV according to patient size (this includes techniques or standardized protocols for targeted exams where dose is matched to indication/reason for exam; i.e. extremities or head) *Use of iterative reconstruction technique DLP: 765 mGy-cm FINDINGS: LUNG BASES: The visualized lung bases are unremarkable. LIVER, GALLBLADDER, AND BILIARY TREE: The liver is normal in size, shape, and attenuation. No focal hepatic lesion or biliary ductal dilatation is present. The gallbladder is unremarkable with no evidence of radiopaque gallstones, gallbladder wall thickening, or obvious pericholecystic inflammatory changes. PANCREAS: Unremarkable. SPLEEN: Unremarkable. ADRENAL GLANDS: Unremarkable. KIDNEYS AND URETERS: Punctate calcifications in the right kidney also likely tiny stones. Low-attenuation lesions in the right kidney consistent with small cyst. Low-attenuation lesions in the left kidney consistent with an area appearance of small cysts also. BLADDER: Unremarkable. GASTROINTESTINAL TRACT: The small and large bowel are unremarkable. The appendix is unremarkable. ABDOMINAL WALL: No significant hernia is appreciated. LYMPH NODES: Normal. VASCULAR: Unremarkable. PELVIC VISCERA: Unremarkable. OSSEOUS STRUCTURES: There is compression deformity of L2 vertebral body with loss of more than 50% of height, centrally without retropulsion and no spinal canal stenosis. Pelvic bones and visualized hips are unremarkable CT/CT abdomen pelvis wo IV con IMPRESSION: Fracture of L2 Bilateral renal cysts Fleischner guidelines were followed.
--- NOTE | ~2024-04-11 | CT_ITS ---
EXAMINATION: CT head/brain wo IV con CLINICAL INFORMATION: Syncope, head injury. COMPARISON: Noncontrast head CT 07/08/2021. TECHNIQUE: Contiguous axial imaging was performed from the skull base to vertex without intravenous contrast. Sagittal and coronal reformatted images were obtained. This CT examination was performed using dose optimization techniques as appropriate, variously including the following: * Automated exposure control * Adjustment of mA and/or kV according to patient size (this includes techniques or standardized protocols for targeted exams where dose is matched to indication/reason for exam; i.e. extremities or head) Use of iterative reconstruction technique DLP: 902 mGy-cm FINDINGS: No acute osseous or soft tissue abnormality. The mastoid air cells and visualized portions of the paranasal sinuses are well aerated. There is no evidence of acute intracranial hemorrhage or territorial infarction. No abnormal mass effect or midline shift is seen. [place] to white matter differentiation is well preserved. No extra-axial fluid collections are identified. No hydrocephalus. No significant volume loss. Patchy periventricular and deep white matter hypoattenuation is consistent with mild small vessel ischemic changes. CT/CT head/brain wo IV con IMPRESSION: No acute intracranial abnormality including hemorrhage, mass effect, hydrocephalus, or acute territorial edematous infarction. Electronically signed by: Dakota Castillo MD 04/11/2024 11:59 AM EDT
--- NOTE | ~2024-04-11 | CT_ITS ---
EXAMINATION: CT CHEST, ABDOMEN AND PELVIS WITHOUT CONTRAST CLINICAL INFORMATION: Fall, lumbar/sacral pain, left chest pain COMPARISON: CT abdomen and pelvis 02/21/2021 TECHNIQUE: Multidetector volumetric imaging was performed of the chest, abdomen and pelvis without intravenous contrast. Oral contrast was not administered. Sagittal and coronal reformatted images were obtained on the technologist's workstation. This CT examination was performed using dose optimization techniques as appropriate, variously including the following: *Automated exposure control *Adjustment of mA and/or kV according to patient size (this includes techniques or standardized protocols for targeted exams where dose is matched to indication/reason for exam; i.e. extremities or head) *Use of iterative reconstruction technique DLP: 765, 902 mGy-cm FINDINGS: CHEST: PLEURA: No pleural effusion or pneumothorax. LUNGS: Central airways patent. Minimal biapical pleural parenchymal scarring. Mild bilateral lower lobe dependent atelectasis. 3 mm pulmonary micronodule at the lingula (series 15, image 314) for which no follow-up imaging is required. No suspicious pulmonary nodules. MEDIASTINUM: Right atrial enlargement. Mild aortic arch calcific atherosclerosis. No pericardial effusion. No mediastinal lymphadenopathy. Lack of intravenous contrast limits evaluation for hilar lymphadenopathy. No bulky hilar lymphadenopathy appreciated. CORONARY ARTERY CALCIFICATION: No coronary calcifications present. CHEST WALL/AXILLA: Unremarkable. No lymphadenopathy. ABDOMEN AND PELVIS: Evaluation of solid organs, vascular structures, and bowel wall limited in the absence of intravenous contrast. LIVER AND BILIARY TREE: Unremarkable. GALLBLADDER: Unremarkable PANCREAS: Mild diffuse pancreatic atrophy. SPLEEN: Unremarkable. ADRENAL GLANDS: Unremarkable. KIDNEYS AND URETERS: Bilateral renal simple cysts no follow nonobstructing, superior pole bilateral renal calculi, measuring up to 3 mm on the right and 2 mm on the left. GASTROINTESTINAL TRACT: Moderate sigmoid predominant colonic diverticulosis without evidence of acute diverticulitis. Normal appendix. VASCULAR: Mild aortoiliac calcific atherosclerosis. LYMPH NODES: No lymphadenopathy. PERITONEUM: Trace pelvic free fluid. BLADDER: Unremarkable. PELVIC VISCERA: Status post hysterectomy. ABDOMINAL AND PELVIC WALL: Tiny fat-containing left inguinal hernia. OSSEOUS STRUCTURES: Acute compression fracture of the L2 vertebral body with moderate, 50% central height loss and minimal, 2 mm osseous retropulsion. Lumbar vertebral body heights and alignment otherwise preserved. Mild, chronic-appearing height loss at the T9 vertebral body with a superior endplate Schmorl's node. 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 CT/CT chest wo IV con IMPRESSION: 1. Acute compression fracture of the L2 vertebral body with moderate central height loss and minimal, 2 mm osseous retropulsion. 2. No additional acute traumatic abnormality of the chest, abdomen, or pelvis, within the limitations of noncontrast technique. 3. Nonobstructing bilateral renal calculi. Electronically signed by: Dakota Castillo MD 04/11/2024 12:23 PM EDT
--- NOTE | 2024-04-11 10:05 | PC.NURSE ---
Pt presents from [place] s/p fall after lifting a hevy object. Denies LOC and headstrike. Denies thinners VSS, afebrile, A&Ox3 Pain to low back 5/10 with back spasms.
[2024-04-11] MEDS: Acetaminophen 325 MG TABLET 975 MG PO (10:44)
--- NOTE | 2024-04-11 10:49 | ECG_ITS ---
Test Reason : FALL,BACK PAIN Blood Pressure : / mmHG Vent. Rate : 065 BPM Atrial Rate : 065 BPM P-R Int : 146 ms QRS Dur : 076 ms QT Int : 410 ms P-R-T Axes : 063 -23 064 degrees QTc Int : 426 ms Normal sinus rhythm Possible Left atrial enlargement Borderline ECG When compared with ECG of 16-APR-2022 05:18, QRS axis Shifted right Referred By: Nori Dang Electronically Signed By:REYES HENNING
--- NOTE | 2024-04-11 11:11 | ED_ITS ---
HPI - General Adult General Chief complaint: Fall Stated complaint: WEAK,DIZZY,FALL,,LOW BACK PAIN,FROM SNF PER EMS Time Seen by Provider: 04/11/24 10:38 Source: patient and EMS Mode of arrival: EMS Limitations: no limitations History of Present Illness ED Provider: DR. Dang HPI narrative: 79-year-old female brought in by ambulance after she sustained a syncopal episode this morning. Patient was trying to carry a heavy Cat litter bag. Patient felt dizzy and lost consciousness fell patient otherwise does remember the mechanism of fall next thing she remember that she was hurting with severe left-sided chest pain and lower back pain. No headache, no neck pain. Related Data Previous Rx's ?Medication ?Instructions ?Recorded memantine 7 mg capsule 7 mg PO DAILY #30 ea 05/04/23 sprinkle,extended release 24hr (Namenda XR) Allergies Allergy/AdvReac Type Severity Reaction Status Date / Time елена Allergy Intermediate Rash Verified 04/11/24 09:58 Review of Systems 2 Review of Systems: All other systems are reviewed and are negative Constitutional: Reports as per HPI and Reports no additional constitutional complaints Eyes: Reports as per HPI and Reports no additional eye complaints Reports system reviewed and no additional complaints, except as documented Cardiovascular: Reports as per HPI and Reports no additional cardiovascular complaints Respiratory: Reports as per HPI and Reports no additional respiratory complaints Gastrointestinal: Reports as per HPI and Reports no additional gastrointestinal complaints Genitourinary: Reports no additional female genitourinary complaints Musculoskeletal: Reports no additional musculoskeletal complaints Skin/Breast: Reports system reviewed and no additional complaints, except as docu Psychiatric: Reports no additional psychiatric complaints Endocrine: Reports no additional endocrine complaints Hematologic/Lymphatic: Reports no additional hematologic/lymphatic complaints Allergic/Immunologic: Reports no additional allergic/immunologic complaints Reports system reviewed and no additional complaints, except as documented and Reports Abnormal speech present [facility] Past Medical History Medical History Numbness Skin lesion Abnormal EKG Chest pain Cognitive impairment Sinus pain Shoulder pain COVID-19 virus infection Lumbar pain Left shoulder pain Clavicle fracture Peripheral vascular disease Mass of left foot Headache Age related osteoporosis Renal calculi Encounter for Medicare annual wellness exam Left upper quadrant abdominal pain Positive Romberg test Loss of balance Osteoporosis Constipation by delayed colonic transit Anxiety Hearing loss Blurry vision Thyroid nodule Chest pain Cervical spondylosis with radiculopathy Cold extremities Skin rash Cervical radiculopathy due to degenerative joint disease of spine Degenerative disc disease, cervical Surgical History No pertinent past surgical history Family History Family History Father No problems noted. Mother Cancer Skin cancer Sister Skin cancer Sister Lung cancer Social History Social History Housing: Assisted Living Facility Alcohol intake: current Alcohol intake frequency: holidays/special occasions only Alcohol type: wine Patient Tobacco Use Status: Never used Tobacco Smoked in Last 30 Days: No e-Cigarette/Vaping Use: Never Used Second Hand Smoke Exposure: Yes Use of substances other than those prescribed or required for medical reasons: No Advance Directives: No Advance Directives Information Provided: Yes Do you have a plan to hurt others: No Plan service: No Current occupational status: retired Cognitive needs: No Hearing needs: No Vision needs: No Physical Exam ED Vital Signs: Vital Signs - 24 hr 04/11/24 09:56 04/11/24 10:00 04/11/24 10:00 Temperature 98.0 F 98.0 F 98.0 F Pulse Rate 62 62 62 Respiratory Rate 14 14 14 Blood Pressure 114/51 L 114/51 L 114/51 L Pulse Oximetry 95 95 95 Oxygen Delivery Method Room Air Room Air 04/11/24 12:07 Temperature Pulse Rate 65 Respiratory Rate 21 H Blood Pressure 136/67 Pulse Oximetry 98 Oxygen Delivery Method Room Air BMI result Body Mass Index 20.7 Vital signs have been reviewed and appear to be correct. Blood pressure elevated. Heart rate normal. Respiratory rate normal. Temperature normal. Oxygen saturation normal. Appearance: Alert. Oriented X3. No acute distress. Head: Normal external exam. Normocephalic. Atraumatic. No Coy signs noted. No raccoon eyes noted Eyes: PERRLA. EOMI. Conjunctiva and sclera normal. Eyelids normal. ENT: TM's Normal. Pharynx normal. Uvula midline. Moist mucous membranes. No trismus noted. No drooling noted. No muffled voice noted. Neck: Normal inspection. Neck supple. FROM. No adenopathy. Thyroid Normal. No meningeal signs. No neck mass noted. CVS: Normal heart rate and rhythm. Heart sound normal. No murmurs noted. Pulses normal throughout. Respiratory: No respiratory distress. Painless inspiration. Breath sounds normal. No wheezes/rales/rhonchi noted. Diffuse left-sided chest pain, no step- off, no deformity. No accessory muscle usage noted or decreased air movement noted. Abdomen: Soft and nontender. Bowel sounds normal in all 4 quadrants. No distention noted. No organomegaly noted. No visible injury noted. Back: Lower back pain, no step-off, no deformity. Skin: Skin warm and dry. Normal skin color. Normal skin turgor. No rashes/lesions/lacerations noted. Extremities: No lower extremity edema. Extremities exhibit normal range of motion. Extremities nontender. Neuro: Oriented X 3. Cranial nerve exam: II-XII are grossly intact No motor deficit. No sensory deficit. Reflexes normal. Course Reevaluation(s) Reevaluation #1: Syncopal episode and fall with chest wall contusion and lumbar spine contusion. CT chest/head/lumbar spine is still pending due to radiology reading delay, otherwise labs are unremarkable, plan was to admit the patient for syncopal episode case signed out to Dr. Lagunas. Time: 15:52 Medications Administered Discontinued Medications Generic Name Dose Route Start Last Admin Trade Name Freq PRN Reason Stop Dose Admin Acetaminophen 975 mg 04/11/24 10:35 04/11/24 10:44 Acetaminophen 325 Mg Tablet PO 04/11/24 10:36 975 mg ONCE ONE Administration Sodium Chloride 1,000 mls @ 999 mls/hr 04/11/24 12:15 04/11/24 12:58 Ns IV 04/11/24 13:15 999 mls/hr .Q1H1M ONE Administration Medical Decision Making Differential Diagnosis Differential Diagnoses: The differential diagnosis associated with the presentation includes (Intracranial bleed, rib fracture, lung contusion, chest wall contusion, lumbar spine fracture, lumbar spine contusion, syncope, ACS, severe anemia, electrolyte derangement.) Admission/Observation Consideration of admission/observation: Escalation of care including admission/observation considered Lab Data MDM Lab Attestation statement: I reviewed the patient's lab results. 04/11/24 11:31 04/11/24 11:31 Labs: Lab Results 04/11/24 Range/Units 11:31 WBC 9.7 (4.8-10.8) X10*3/uL RBC 4.62 (4.20-5.50) X10*6/uL Hgb 14.0 (12.0-16.0) g/dl Hct 42.5 (37.0-47.0) % MCV 92.0 (80.0-98.0) fL MCH 30.3 (27.0-33.0) pg MCHC 32.9 (31.0-35.0) g/dl RDW 13.6 (11.0-16.0) % Plt Count 200 (160-400) X10*3/uL MPV 9.0 L (9.4-12.3) fL Immature Gran % (Auto) 0.3 (0.0-0.4) % Neut % (Auto) 90.5 H (45-73) % Lymph % (Auto) 5.1 L (20-40) % [place] % (Auto) 4.0 (2-11) % Eos % (Auto) 0.0 (0-4) % Baso % (Auto) 0.1 (0-2) % Lymph # (Auto) 0.5 L (1.2-4.9) X10*3/uL [place] # (Auto) 0.4 (0.1-1.2) X10*3/uL Eos # (Auto) 0.0 (0.0-0.4) X10*3/uL Baso # (Auto) 0.0 (0.0-0.2) X10*3/uL Abs Immat Gran (auto) 0.03 (0.00-0.03) X10*3/uL Absolute Neuts (auto) 8.7 H (2.0-8.3) x10*3/uL Absolute Nucleated RBC 0.000 (0.0-0.012) X10*3/uL Nucleated RBC % (auto) 0.0 (0.0-0.2) /100WBC Smear Tech's Comments VERIFIED Sodium 141 (135-145) mmol/L Potassium 4.1 (3.3-5.1) mmol/L Chloride 106 (96-108) mmol/L Carbon Dioxide 26 (22-29) mmol/L Anion Gap 13 (12-20) BUN 13 (9-16) mg/dL Creatinine 0.70 (0.5-1.4) mg/dL Estim Creat Clear Calc 65.6 Estimated GFR > 60 Random Glucose 125 H (60-115) mg/dL Calcium 11.5 H D (8.4-10.2) mg/dL Total Bilirubin 0.7 (0.0-1.0) mg/dL Direct Bilirubin 0.2 (0.0-0.5) mg/dL AST 30 (5-31) U/L ALT 28 (0-31) U/L Alkaline Phosphatase 91 (39-117) U/L Total Creatine Kinase 129 (26-140) U/L Troponin I High Sens 3.8 (<3.5-17.0) ng/L Total Protein 7.0 (6.5-8.0) g/dL Albumin 4.3 (3.5-5.0) g/dL Lipase 24 (8-78) U/L Independent Interpretation I performed an independent interpretation of an: EKG (Normal sinus rhythm at 65 beats per minute, left axis deviation, normal intervals, no ST-T changes, no change from previous EKG.) Discharge Plan Discharge Clinical Impression: Syncope and collapse, Contusion of left chest wall, Lumbar contusion Patient Disposition: Still a Patient Prescriptions: No Action memantine [Namenda XR] 7 mg capsule,sprinkle,ER 24hr 7 mg PO DAILY Qty: 30 3RF Print Language: Japanese
[2024-04-11 11:36] LABS: Basophils Percent Auto 0.1 % (0-2); Hematocrit 42.5 % (37.0-47.0); Imm Gran Abs Auto 0.03 X10*3/uL (0.00-0.03); Imm Gran Pct Auto 0.3 % (0.0-0.4); Lymphocytes Absolute Auto 0.5 X10*3/uL (1.2-4.9); Lymphocytes Percent Auto 5.1 % (20-40); MANUAL DIFF FLAG SCAN; Mean Corpuscular HGB Conc 32.9 g/dl (31.0-35.0); Mean Corpuscular Hemoglobin 30.3 pg (27.0-33.0); Monocytes Absolute Auto 0.4 X10*3/uL (0.1-1.2); Neutrophils Absolute Auto 8.7 x10*3/uL (2.0-8.3); Neutrophils Percent Auto 90.5 % (45-73); Platelet Count 200 X10*3/uL (160-400); Red Blood Count 4.62 X10*6/uL (4.20-5.50); Red Cell Distribution Width 13.6 % (11.0-16.0); SCAN SMEAR FLAG 1; White Blood Count 9.7 X10*3/uL (4.8-10.8)
[2024-04-11 11:54] LABS: Alanine Aminotransferase 28 U/L (0-31); Albumin Level 4.3 g/dL (3.5-5.0); Alkaline Phosphatase 91 U/L (39-117); Anion Gap 13 (12-20); Aspartate Amino Transferase 30 U/L (5-31); Bilirubin Direct 0.2 mg/dL (0.0-0.5); Bilirubin Total 0.7 mg/dL (0.0-1.0); Blood Urea Nitrogen 13 mg/dL (9-16); Calcium 11.5 mg/dL (8.4-10.2); Carbon Dioxide 26 mmol/L (22-29); Chloride 106 mmol/L (96-108); Creatinine Clr Calc Pharmacy 65.6; Estimated Glomerular Filt Rate > 60; Glucose Random 125 mg/dL (60-115); Lipase 24 U/L (8-78); Potassium 4.1 mmol/L (3.3-5.1); Sodium 141 mmol/L (135-145)
[2024-04-11 11:56] LABS: SLIDE REVIEW VERIFIED
[2024-04-11 12:02] LABS: Troponin-I High Sensitivity 3.8 ng/L (<3.5-17.0)
[2024-04-11] MEDS: 0.9 % Sodium Chloride 1,000 ML 999 ML IV (12:58)
[2024-04-11] MEDS: Morphine Sulfate 2 MG/ML CARTRIDGE 1 MG IVPUSH (16:32)
[2024-04-11 16:51] LABS: Appearance Urine Clear; Color Urine Yellow; Glucose Urine UA Negative (Negative); Leukocyte Esterase Urine Trace (Negative); Nitrite Urine Negative (Negative); PH 6.5 (5.0-9.0); Specific Gravity - Urine 1.015 (1.005-1.025); UMIC TRIGGER UACC YES; Urine Blood Negative (Negative); Urine Ketones Trace mg/dL (Negative); Urine Protein Negative (Neg-Trace)
[2024-04-11 16:54] LABS: Bacteria Urine None Seen (None Seen); Hyaline Casts Urine 0-2 /LPF (0-2); RBC Urine 0-2 /HPF (0-2); Squamous Epithelial Cell Urine 0-2 /HPF (0-2); WBC Urine 0-5 /HPF (0-5)
--- NOTE | 2024-04-11 20:09 | PM.IMHP ---
History of Present Illness Date of Service: 04/11/24 Attending physician on admission: Jovani Moore Chief Complaint: syncope 79-year-old female with history of osteoporosis and unspecified cognitive impairment presented to the ED earlier today from home after syncopized thing while carrying a heavy catheter bag. She states that she has had several falls over the last few weeks and does have ecchymotic lesions of various degrees of healing on her body. She denies any prodrome leading up to the fall including visual changes, lightheadedness, palpitations, shortness of breath, headache chest pain. No focal weakness or paresthesias. Currently reporting 10/10 pain in the left low back and left chest. Denies any lower extremity weakness or paresthesias. No bowel/bladder dysfunction or saddle anesthesia. She is reporting a mild headache. Vitals on arrival within normal limits. Hematology studies unremarkable. Renal function normal, electrolyte levels normal except for mildly elevated calcium level of 11.5. Hepatic function within normal limits. Troponin 3.8. Total CK 129. Urinalysis unremarkable. Head CT negative for any acute intracranial abnormality. CT chest and abdomen pelvis negative for any acute traumatic injury of the chest, abdomen or pelvis but does show an acute compression fracture of the L2 vertebral body with moderate central height loss and minimal 2 mm osseous retropulsion. In the ED, has been given 1 mg IV morphine. Review of Systems Review of Systems: Yes all other systems are reviewed and are negative FORMERLY [facility], [facility]1983 Medical History Numbness Skin lesion Abnormal EKG Chest pain Cognitive impairment Sinus pain Shoulder pain COVID-19 virus infection Lumbar pain Left shoulder pain Clavicle fracture Peripheral vascular disease Mass of left foot Headache Age related osteoporosis Renal calculi Encounter for Medicare annual wellness exam Left upper quadrant abdominal pain Positive Romberg test Loss of balance Osteoporosis Constipation by delayed colonic transit Anxiety Hearing loss Blurry vision Thyroid nodule Chest pain Cervical spondylosis with radiculopathy Cold extremities Skin rash Cervical radiculopathy due to degenerative joint disease of spine Degenerative disc disease, cervical Family History Father No problems noted. Mother Cancer Skin cancer Sister Skin cancer Sister Lung cancer Surgical History No pertinent past surgical history Social History Housing: Assisted Living Facility Alcohol intake: current Alcohol intake frequency: holidays/special occasions only Alcohol type: wine Patient Tobacco Use Status: Never used Tobacco Smoked in Last 30 Days: No e-Cigarette/Vaping Use: Never Used Second Hand Smoke Exposure: Yes Use of substances other than those prescribed or required for medical reasons: No Advance Directives: No Advance Directives Information Provided: Yes Do you have a plan to hurt others: No Plan service: No Current occupational status: retired Cognitive needs: No Hearing needs: No Vision needs: No Meds Allergies Allergy/AdvReac Type Severity Reaction Status Date / Time елена Allergy Intermediate Rash Verified 04/11/24 09:58 Home Medications ?Medication ?Instructions ?Recorded ?Confirmed ?Last Taken ?Type No Known Home Meds 04/11/24 04/11/24 Unknown History Physical Exam Vital Signs and Narrative: Vital Signs: Last Vital Signs Temp 98.9 F 04/11/24 18:35 Pulse 70 04/11/24 18:35 Resp 16 04/11/24 18:35 BP 131/66 04/11/24 18:35 Pulse Ox 98 04/11/24 18:35 O2 Del Method Room Air 04/11/24 18:35 BMI result Body Mass Index 20.7 Constitutional - Awake and Alert, in moderate distress secondary to pain Eyes - PERRLA, EOMI Chest- reproducible left-sided tenderness to palpation Cardiovascular - S1S2, RRR, no murmurs, No edema Respiratory - Normal lung expansion, Normal respiratory effort, No respiratory distress, CTA bilaterally Gastrointestinal - NT / ND; +BS; No rebound or guarding Extremities - no calf tenderness bilaterally, no swelling Musculoskeletal - midline ttp at about L1-L4 with left sided paraspinal ttp Skin - Warm/Dry Neurological - Alert & oriented x3, CN II-XII in tact, 5/5 strength BUE and BLE Psychological - Appropriate affect Results Labs 04/11/24 11:31 04/11/24 11:31 Labs: Laboratory Results - last 24 hr 04/11/24 04/11/24 11:31 16:36 MCV 92.0 MCH 30.3 MCHC 32.9 RDW 13.6 Plt Count 200 MPV 9.0 L Immature Gran % (Auto) 0.3 Neut % (Auto) 90.5 H Lymph % (Auto) 5.1 L [place] % (Auto) 4.0 Eos % (Auto) 0.0 Baso % (Auto) 0.1 Lymph # (Auto) 0.5 L [place] # (Auto) 0.4 Eos # (Auto) 0.0 Baso # (Auto) 0.0 Abs Immat Gran (auto) 0.03 Absolute Neuts (auto) 8.7 H Absolute Nucleated RBC 0.000 Nucleated RBC % (auto) 0.0 Smear Tech's Comments VERIFIED Anion Gap 13 Estim Creat Clear Calc 65.6 Estimated GFR > 60 Random Glucose 125 H Calcium 11.5 H D Total Bilirubin 0.7 Direct Bilirubin 0.2 AST 30 ALT 28 Alkaline Phosphatase 91 Total Creatine Kinase 129 Troponin I High Sens 3.8 Total Protein 7.0 Albumin 4.3 Lipase 24 Urine Color Yellow Urine Appearance Clear Urine pH 6.5 Ur Specific [place] 1.015 Urine Protein Negative Urine Glucose (UA) Negative Urine Ketones Trace Urine Blood Negative Urine Nitrite Negative Ur Leukocyte Esterase Trace H Urine RBC 0-2 Urine WBC 0-5 Ur Squamous Epith Cells 0-2 Urine Bacteria None Seen Hyaline Casts 0-2 Assessment and Plan (1) Compression fracture of L2: Status: Acute (2) Contusion of left chest wall: Status: Acute Plan 79-year-old female with history of osteoporosis and unspecified cognitive impairment to be observed for syncopal episode with L2 compression fracture # syncope -etiology unclear at this time. No prodrome leading up to fall -head CT negative for acute intracranial abnormality. No evidence of infection -unable to check orthostatics due to severe pain. Attempt orthostatic vital signs a.m. -continue IV fluids -echocardiogram -check EEG -monitor on telemetry # acute L2 compression fracture with history of multiple falls recently -does have known history of osteoporosis -CT shows compression fracture of the L2 vertebral body with moderate central height loss and minimal 2 mm osseous retropulsion -pain management with oxycodone and morphine using pain scale -IR consult to evaluate for any possibility of intervention -PT evaluation # acute left-sided chest contusion -no rib fractures noted on imaging -pain management p.r.n. # acute hypercalcemia -calcium 11.5 -continue IVF -repeat lytes a.m. with PTH and vitamin-D level -consider nephrology versus endocrinology referral pending results # unspecified cognitive disorder -continue memantine DVT prophylaxis-Lovenox Full code Quality Stroke Does the patient have a stroke diagnosis?: No VTE Prior VTE?: No VTE Risk Level:: Medical - moderate - high VTE Device Contraindication: Treatment Not Indicated VTE Drug Contraindication: N/A - Med Ordered
[2024-04-11] MEDS: Morphine Sulfate 4 MG/ML CARTRIDGE IVPUSH (20:19)
[2024-04-11] MEDS: Enoxaparin Sodium 40 MG/0.4 ML SYRINGE SUBCUT (20:21)
--- NOTE | 2024-04-11 20:21 | PC.NURSE ---
this rn assumed care of pt, pt a&ox4, respirations even and unlabored. pt reporting 10/10 lower back pain, pt medicated per mar. vss.
[2024-04-11] MEDS: Lactated Ringers 1,000 ML 100 ML IVCONT (20:26)
--- NOTE | 2024-04-11 21:22 | PHA.MEDREC ---
Addendum entered by Tristan Palomares [facility] ED 04/11/24 21:35: MED REC CHECKED BY [facility] Original Note: Pharmacy Consult ? Medication Reconciliation Pharmacy has completed the medication reconciliation. Called [facility] to get medication list but the staff there confirmed that the patient is not currently at their facility. I called patient son Rajat to see what Assisted Living Facility his mom went to and he states [facility] in [place], I asked him if he knew if the patient was taking anything or not and he confirmed she is not taking anything at the moment.
[2024-04-12] VITALS (10 sets, daily range): BP systolic 128–180; BP diastolic 50–108; PULSE 64–117; RESP 16–32; TEMP 36.6–37.3; O2SAT 91–99
[2024-04-12] MEDS: Morphine Sulfate 4 MG/ML CARTRIDGE IVPUSH ×3 (01:00→20:25)
--- NOTE | 2024-04-12 01:01 | PC.NURSE ---
pt reporting 10/10 back pain and is tearful at this time, pt medicated per mar.
[2024-04-12] MEDS: oxyCODONE HCl Immed Release 5 MG TABLET PO (03:55)
--- NOTE | 2024-04-12 03:55 | PC.NURSE ---
pt reporting 5/10 back pain, pt medicated per mar, tolerated well with water.
[2024-04-12 06:13] LABS: MANUAL DIFF FLAG NO
[2024-04-12 06:29] LABS: Basophils Percent Auto 0.4 % (0-2); Eosinophils Percent Auto 0.4 % (0-4); Hematocrit 39.2 % (37.0-47.0); Hemoglobin 12.8 g/dl (12.0-16.0); Imm Gran Abs Auto 0.01 X10*3/uL (0.00-0.03); Imm Gran Pct Auto 0.2 % (0.0-0.4); Lymphocytes Absolute Auto 0.8 X10*3/uL (1.2-4.9); Lymphocytes Percent Auto 15.3 % (20-40); Mean Corpuscular HGB Conc 32.7 g/dl (31.0-35.0); Mean Corpuscular Hemoglobin 30.4 pg (27.0-33.0); Mean Corpuscular Volume 93.1 fL (80.0-98.0); Mean Platelet Volume 9.5 fL (9.4-12.3); Monocytes Absolute Auto 0.4 X10*3/uL (0.1-1.2); Monocytes Percent Auto 6.5 % (2-11); Neutrophils Absolute Auto 4.2 x10*3/uL (2.0-8.3); Neutrophils Percent Auto 77.2 % (45-73); Platelet Count 188 X10*3/uL (160-400); Red Blood Count 4.21 X10*6/uL (4.20-5.50); Red Cell Distribution Width 13.6 % (11.0-16.0); White Blood Count 5.4 X10*3/uL (4.8-10.8)
[2024-04-12 06:34] LABS: Anion Gap 13 (12-20); Blood Urea Nitrogen 10 mg/dL (9-16); Calcium 10.7 mg/dL (8.4-10.2); Carbon Dioxide 22 mmol/L (22-29); Chloride 109 mmol/L (96-108); Creatinine Clr Calc Pharmacy 77.9; Estimated Glomerular Filt Rate > 60; Glucose Random 98 mg/dL (60-115); Potassium 3.9 mmol/L (3.3-5.1); Sodium 140 mmol/L (135-145)
[2024-04-12 06:52] LABS: Vitamin D 25-OH Total 16.2 ng/mL (>30)
--- NOTE | 2024-04-12 07:00 | CA_ITS ---
Transthoracic Echocardiogram Patient (Last, First, Middle): Elizabeth Carver, Gender: Female Date of : 1945 Age: 79 Procedure Date: 04/12/2024 Procedure Type: Transthoracic Echocardiogram Location: ER Height: 172.72 cm Weight: 61.69 kg BSA: 1.73 m2 Heart Rate: bpm BP: 142 / 62 mmHg Supervisor Fruit Grading: SB Referring MD: Kathy BRUNER Symptoms: syncope Study Quality: Adequate Conclusions: - Normal left ventricular cavity size. There is mildly increased left ventricular wall thickness. The left ventricular systolic function is hyperdynamic. The visually estimated ejection fraction is >70%. - Normal right ventricular cavity size and systolic function. - Mild pulmonary hypertension is present. - There is mild dilatation of the ascending aorta measuring 3.60 cm. Findings Left Ventricle Normal left ventricular cavity size. There is mildly increased left ventricular wall thickness. The left ventricular systolic function is hyperdynamic. The visually estimated ejection fraction is >70%. There is no evidence of regional wall motion abnormalities. Abnormal diastolic function is noted. Spectral Doppler is indicative of a pseudonormal filling pattern. E/E prime ratio is between 8 and 15 consistent with indeterminate filling pressures. Right Ventricle Normal right ventricular cavity size and systolic function. Atria The left atrium is normal in size. The right atrium is normal in size. Aortic Valve There is a normal trileaflet aortic valve. There is no aortic valve stenosis. There is trace (trivial) aortic valve regurgitation. Mitral Valve The mitral valve appears normal. There is trace mitral valve regurgitation. There is no mitral valve stenosis. Pulmonic Valve The pulmonic valve is likely normal. Tricuspid Valve Normal tricuspid valve structure. There is mild to moderate tricuspid valve regurgitation. Normal right atrial pressure. Mild pulmonary hypertension is present. Great Vessels There is mild dilatation of the ascending aorta measuring 3.60 cm. Venous The inferior vena cava is normal in size and collapses greater than 50% with inspiration. Pericardium/Pleural There is no evidence of pericardial effusion. Prior Study Comparison No significant change compared to prior study dated: 12/02/2021. Measurements 2D Linear Measurements IVSd: 1.13 0.6-0.9/0.6-1.0 cm LVIDd: 3.75 3.9-5.3/4.2-5.9 cm LVIDd Index: 2.17 2.4-3.2/2.2-3.1 cm/m2 LVIDs: 1.77 2.0-3.6 cm LVPWd: 0.91 0.7-1.1 cm LA Diam: 2.90 2.7-3.8/3.0-4.0 cm LAIDs Index: 1.68 1.5-2.3 cm/m2 LV Mass: 146.92 67-162/88-224 g LV Mass Index: 84.93 43-95/49-115 g/m2 LVOT Diam: 2.10 3.0+(-)1.3 cm 2D Systolic Function EF 4C: 70.40 >55% EF 2C: 71.80 >55% EF BiP: 71.40 >55% Mitral Valve MV Pk E: 0.95 MV PK A: 0.94 MV Decel Time: 232.00 E/A: 1.00 E'Lateral: 6.96 E'Medial: 6.96 E/E' Med: 13.60 E/E' Lat: 13.60 PHT: 68.00 MVA PHT: 3.24 Decel [place]: 4.09 Aortic Valve AoV Pk Randall: 1.26 AoV Pk Grad: 6.00 AI Pk Randall: 4.02 AI [place]: 1.99 LVOT LVOT Pk Randall: 1.30 LVOT Mn Randall: 0.97 LVOT VTI: 0.29 LVOT Pk Grad: 7.00 LVOT Mn Grad: 4.00 LVOT Diam: 2.10 LVOT Area: 3.46 Diastolic Function MV Pk E: 0.95 MV Pk A: 0.94 E/A: 1.00 E'Medial: 6.96 E/E' Med: 13.60 E' Laterial: 6.96 E/E' Lat: 13.60 Right Ventricle TAPSE (mm): 29.50 TVS' Randall: 16.30 Tricuspid Valve TR Pk Randall: 2.99 TR Pk Grad: 36.00 RVSP: 40.00 Great Vessels Aorta Sinus of Valsalva: 3.20 2.0-3.5 cm Ao Asc: 3.60 2.1-3.4 cm Pulmonary Valve PV Pk Randall: 0.79 Peak PV Grad: 3.00 Updated in Other Vendor System with Status of Final Serge Regan MD electronically signed on 04/12/2024 8:26:47 PM with status of Final
[2024-04-12] MEDS: Lactated Ringers 1,000 ML 100 ML IVCONT ×2 (07:42→17:02)
--- NOTE | 2024-04-12 12:38 | MHC.CM.PN ---
CM met with Patient at bedside, in the ED . Patient appears confused; CM attempted to speak with only Contact/Sister/Janice @ [phone], but was only able to leave a detailed message (CM explained in the message that the GARCÍA will be mailed to Janice). DC plan is TBD; CM has initiated and will follow for dc planning. PCP is Dr. Yuli Patino.
--- NOTE | 2024-04-12 12:46 | P.PNIM_ITS ---
Subjective Subjective Date of Service: 04/12/24 Interval History: No acute issues since admission. Remains pleasantly confused Review of Systems Denies chest pain Denies shortness of breath Denies nausea vomiting diarrhea Denies fever chills Physical Exam 2 Vital Signs: Vital Signs: Last Vital Signs Temp 99.0 F 04/12/24 12:16 Pulse 67 04/12/24 12:16 Resp 20 04/12/24 12:16 BP 142/62 H 04/12/24 12:16 Pulse Ox 95 04/12/24 12:16 O2 Del Method Room Air 04/12/24 12:16 BMI result Body Mass Index 20.7 Const: Other: Awake confused but easily redirected Resp: Other: Clear to auscultation bilaterally no rales rhonchi or wheezes Cardio: Other: No S4; positive S1-S2; no S3 murmurs rubs or gallops GI: Other: Soft nontender nondistended normoactive bowel sounds Extrem: Other: No edema bilaterally Objective Data Active Medications Acetaminophen (Acetaminophen 325 Mg Tablet) 650 mg PO Q6H PRN PRN Reason: Pain, Mild (Pain Scale 1-3), fever or headache Calcium Carbonate (Calcium Carbonate 750 Mg Tab.Chew) 750 mg PO Q4H PRN PRN Reason: Heartburn Enoxaparin Sodium (Enoxaparin Sodium 40 Mg/0.4 Ml Syringe) 40 mg SUBCUT Q24H [facility] Last Admin: 04/11/24 20:21 Dose: 40 mg Documented By: WAYNE Lactated Ringer's (Lr) 1,000 mls @ 100 mls/hr IVCONT .Q10H [facility] Last Admin: 04/12/24 07:42 Dose: 100 mls/hr Documented By: MANOLO Magnesium Hydroxide (Milk Of Magnesia 30 Ml Oral.Susp) 30 ml PO DAILY PRN PRN Reason: Constipation Melatonin (Melatonin 3 Mg Tablet) 6 mg PO BEDTIME PRN PRN Reason: Insomnia Morphine Sulfate (Morphine Sulfate 4 Mg/Ml Cartridge) 4 mg IVPUSH Q4H PRN; Protocol PRN Reason: Pain, Severe (Pain Scale 7-10) Last Admin: 04/12/24 01:00 Dose: 4 mg Documented By: WAYNE Oxycodone HCl (Oxycodone Hcl Immed Release 5 Mg Tablet) 5 mg PO Q6H PRN PRN Reason: Pain, Moderate(Pain Scale 4-6) Last Admin: 04/12/24 03:55 Dose: 5 mg Documented By: WAYNE Sodium Chloride (0.9 % Sodium Chloride Flush 3 Ml Syringe) 3 ml IVFLUSH QSHIFT [place] Last Admin: 04/12/24 08:04 Dose: Not Given Documented By: MANOLO Non-Admin Reason: IV Running Labs 04/12/24 04:59 04/12/24 04:59 Labs: Laboratory Results - last 24 hr 04/11/24 04/12/24 16:36 04:59 MCV 93.1 MCH 30.4 MCHC 32.7 RDW 13.6 Plt Count 188 MPV 9.5 Immature Gran % (Auto) 0.2 Neut % (Auto) 77.2 H Lymph % (Auto) 15.3 L [place] % (Auto) 6.5 Eos % (Auto) 0.4 Baso % (Auto) 0.4 Lymph # (Auto) 0.8 L [place] # (Auto) 0.4 Eos # (Auto) 0.0 Baso # (Auto) 0.0 Abs Immat Gran (auto) 0.01 Absolute Neuts (auto) 4.2 Absolute Nucleated RBC 0.000 Nucleated RBC % (auto) 0.0 Anion Gap 13 Estim Creat Clear Calc 77.9 Estimated GFR > 60 Random Glucose 98 Calcium 10.7 H D 25-OH Vitamin D Total 16.2 L PTH Intact 192.0 H Urine Color Yellow Urine Appearance Clear Urine pH 6.5 Ur Specific [place] 1.015 Urine Protein Negative Urine Glucose (UA) Negative Urine Ketones Trace Urine Blood Negative Urine Nitrite Negative Ur Leukocyte Esterase Trace H Urine RBC 0-2 Urine WBC 0-5 Ur Squamous Epith Cells 0-2 Urine Bacteria None Seen Hyaline Casts 0-2 Assessment and Plan (1) Syncope and collapse: Status: Acute (2) Compression fx, lumbar spine: Status: Acute Plan 79-year-old female with history of osteoporosis and unspecified cognitive impairment to be observed for syncopal episode with L2 compression fracture 1.Syncope -head CT negative for acute intracranial abnormality. No evidence of infection -unable to check orthostatics due to severe pain. Attempt orthostatic vital signs a.m. -continue IV fluids -echocardiogram -check EEG.Neurology consult -monitor on telemetry 2.Acute L2 compression fracture with history of multiple falls recently -does have known history of osteoporosis -CT shows compression fracture of the L2 vertebral body with moderate central height loss and minimal 2 mm osseous retropulsion -pain management with oxycodone and morphine using pain scale -IR consult to evaluate for any possibility of intervention -PT evaluation 3.Acute hypercalcemia -calcium 11.5 -continue IVF - 4.Unspecified cognitive disorder -continue memantine Lovenox Full code Quality Stroke Does the patient have a stroke diagnosis?: No VTE Prior VTE?: No VTE Risk Level:: Medical - moderate - high VTE Device Contraindication: Treatment Not Indicated VTE Drug Contraindication: N/A - Med Ordered
[2024-04-12 20:16] LABS: Glucose, Whole Blood 159 mg/dL (60-115)
[2024-04-12] MEDS: Enoxaparin Sodium 40 MG/0.4 ML SYRINGE SUBCUT (20:25)
[2024-04-13] MEDS: oxyCODONE HCl Immed Release 5 MG TABLET PO ×2 (00:53→13:51)
[2024-04-13 03:19] VITALS: BP 167/74; PULSE 98; RESP 20; TEMP 36.9; O2SAT 94
[2024-04-13] MEDS: Lactated Ringers 1,000 ML 100 ML IVCONT ×2 (05:07→13:50)
[2024-04-13 06:11] LABS: MANUAL DIFF FLAG NO
[2024-04-13 06:20] LABS: Basophils Percent Auto 0.3 % (0-2); Eosinophils Percent Auto 0.1 % (0-4); Hematocrit 39.3 % (37.0-47.0); Hemoglobin 12.8 g/dl (12.0-16.0); Imm Gran Abs Auto 0.02 X10*3/uL (0.00-0.03); Imm Gran Pct Auto 0.3 % (0.0-0.4); Lymphocytes Absolute Auto 0.6 X10*3/uL (1.2-4.9); Lymphocytes Percent Auto 9.1 % (20-40); Mean Corpuscular HGB Conc 32.6 g/dl (31.0-35.0); Mean Corpuscular Hemoglobin 29.9 pg (27.0-33.0); Mean Corpuscular Volume 91.8 fL (80.0-98.0); Mean Platelet Volume 9.5 fL (9.4-12.3); Monocytes Absolute Auto 0.5 X10*3/uL (0.1-1.2); Monocytes Percent Auto 6.9 % (2-11); Neutrophils Absolute Auto 5.7 x10*3/uL (2.0-8.3); Neutrophils Percent Auto 83.3 % (45-73); Platelet Count 169 X10*3/uL (160-400); Red Blood Count 4.28 X10*6/uL (4.20-5.50); Red Cell Distribution Width 13.4 % (11.0-16.0); White Blood Count 6.8 X10*3/uL (4.8-10.8)
[2024-04-13 06:42] LABS: Alanine Aminotransferase 16 U/L (0-31); Albumin Level 3.5 g/dL (3.5-5.0); Alkaline Phosphatase 66 U/L (39-117); Anion Gap 11 (12-20); Aspartate Amino Transferase 25 U/L (5-31); Bilirubin Total 0.7 mg/dL (0.0-1.0); Blood Urea Nitrogen 7 mg/dL (9-16); Calcium 10.3 mg/dL (8.4-10.2); Carbon Dioxide 25 mmol/L (22-29); Chloride 106 mmol/L (96-108); Creatinine Clr Calc Pharmacy 72.8; Estimated Glomerular Filt Rate > 60; Glucose Fasting 128 mg/dL (60-99); Potassium 3.7 mmol/L (3.3-5.1); Sodium 138 mmol/L (135-145)
[2024-04-13 08:00] VITALS: BP 162/78; PULSE 75; RESP 18; TEMP 37; O2SAT 93
[2024-04-13] MEDS: Morphine Sulfate 4 MG/ML CARTRIDGE IVPUSH (09:22)
--- NOTE | 2024-04-13 11:00 | MHC.CM.PN ---
EMR REVIEWED AND PER MD ROUNDS, PT IS NOT MEDICALLY CLEARED FOR DC. P.T. IS RECOMMENDING STR WHEN MEDICALLY CLEARED. SON/HCP BRAD IN AND UPDATED. PT/SON REQUEST [facility] FIRST CHOICE. REFERRAL SENT. CM WILL CONTINUE TO FOLLOW FOR ANY CHANGE TO DC PLAN/NEEDS.
[2024-04-13 12:00] VITALS: BP 153/72; PULSE 75; RESP 20; TEMP 37; O2SAT 98
--- NOTE | 2024-04-13 13:58 | HO.PM.IMPN ---
Subjective Subjective Date of Service: 04/13/24 Interval History: Seen and examined this morning Follow-up for compression fracture, fall Patient reports pain is controlled if she does not move but has back pain with movement no numbness or tingling in legs Review of Systems Review of Systems: Yes all other systems are reviewed and are negative Constitutional Constitutional: Denies chills and Denies fever(s) Cardiovascular Cardiovascular: Denies chest pain Physical Exam Vital Signs: Vital Signs: Last Vital Signs Temp 98.6 F 04/13/24 12:00 Pulse 75 04/13/24 12:00 Resp 20 04/13/24 12:00 BP 153/72 H 04/13/24 12:00 Pulse Ox 98 04/13/24 12:00 O2 Del Method Room Air 04/13/24 12:00 BMI result Body Mass Index 20.0 Const: General: cooperative, comfortable, no acute distress, alert and awake Nutritional Appearance: thin Orientation/consciousness: oriented to person and oriented to place Resp: Effort & Inspection: normal respiratory effort, able to speak in complete sentences, no respiratory distress and no use of accessory muscles Cardio: Rate: regular rate GI: Inspection: No distended Palpation (GI): Soft to palpation and nontender Neuro: Other: grossly nonfocal General: oriented to person, oriented to place and moves all extremities Extrem: General: Yes no pedal edema Objective Data Active Medications Acetaminophen (Acetaminophen 325 Mg Tablet) 650 mg PO Q6H PRN PRN Reason: Pain, Mild (Pain Scale 1-3), fever or headache Calcium Carbonate (Calcium Carbonate 750 Mg Tab.Chew) 750 mg PO Q4H PRN PRN Reason: Heartburn Enoxaparin Sodium (Enoxaparin Sodium 40 Mg/0.4 Ml Syringe) 40 mg SUBCUT Q24H [facility] Last Admin: 04/12/24 20:25 Dose: 40 mg Documented By: CHUCK Lactated Ringer's (Lr) 1,000 mls @ 100 mls/hr IVCONT .Q10H [facility] Last Admin: 04/13/24 13:50 Dose: 100 mls/hr Documented By: PAT Magnesium Hydroxide (Milk Of Magnesia 30 Ml Oral.Susp) 30 ml PO DAILY PRN PRN Reason: Constipation Melatonin (Melatonin 3 Mg Tablet) 6 mg PO BEDTIME PRN PRN Reason: Insomnia Morphine Sulfate (Morphine Sulfate 4 Mg/Ml Cartridge) 2 mg IVPUSH Q4H PRN; Protocol PRN Reason: Pain, Severe (Pain Scale 7-10) Oxycodone HCl (Oxycodone Hcl Immed Release 5 Mg Tablet) 5 mg PO Q6H PRN PRN Reason: Pain, Moderate(Pain Scale 4-6) Last Admin: 04/13/24 13:51 Dose: 5 mg Documented By: PAT Sodium Chloride (0.9 % Sodium Chloride Flush 3 Ml Syringe) 3 ml IVFLUSH QSHIFT [facility] Last Admin: 04/13/24 13:51 Dose: Not Given Documented By: PAT Non-Admin Reason: IV Running Labs 04/13/24 05:47 04/13/24 05:47 Labs: Laboratory Results - last 24 hr 04/12/24 04/13/24 20:08 05:47 MCV 91.8 MCH 29.9 MCHC 32.6 RDW 13.4 Plt Count 169 MPV 9.5 Immature Gran % (Auto) 0.3 Neut % (Auto) 83.3 H Lymph % (Auto) 9.1 L [place] % (Auto) 6.9 Eos % (Auto) 0.1 Baso % (Auto) 0.3 Lymph # (Auto) 0.6 L [place] # (Auto) 0.5 Eos # (Auto) 0.0 Baso # (Auto) 0.0 Abs Immat Gran (auto) 0.02 Absolute Neuts (auto) 5.7 Absolute Nucleated RBC 0.000 Nucleated RBC % (auto) 0.0 Anion Gap 11 L Estim Creat Clear Calc 72.8 Estimated GFR > 60 POC Glucose 159 H Fasting Glucose 128 H Calcium 10.3 H Total Bilirubin 0.7 AST 25 ALT 16 Alkaline Phosphatase 66 Total Protein 6.0 L Albumin 3.5 Assessment and Plan (1) Compression fracture of L2: Status: Acute Plan 79-year-old female with history of osteoporosis and unspecified cognitive impairment to be observed for syncopal episode with L2 compression fracture Syncope head CT negative for acute intracranial abnormality. No evidence of infection unable to check orthostatics due to severe pain Echo with preserved ejection fraction check EEG. Neurology consult pending Acute L2 compression fracture with history of multiple falls recently history of osteoporosis CT shows compression fracture of the L2 vertebral body with moderate central height loss and minimal 2 mm osseous retropulsion Conservative management prior to considering vertebroplasty as outpatient Continues to require IV morphine for adequate pain control PT rec STR Acute hypercalcemia calcium 11.5 trending down with fluid Vitamin-D deficiency Start oral replacement Acute left-sided chest contusion No rib fractures Pain control Incentive spirometry Unspecified cognitive disorder -continue memantine Lovenox Full code Patient requires ongoing inpatient stay for pain control requiring IV narcotics, safe disposition Quality Stroke Does the patient have a stroke diagnosis?: No VTE Prior VTE?: No VTE Risk Level:: Medical - moderate - high VTE Device Contraindication: Treatment Not Indicated VTE Drug Contraindication: N/A - Med Ordered
[2024-04-13 16:00] VITALS: BP 163/77; PULSE 79; RESP 18; TEMP 37.3; O2SAT 95
--- NOTE | 2024-04-13 16:39 | P.CNNE_ITS ---
History of Present Illness Data of Consult Service Date: 04/13/24 Primary Care Provider: Yuli Gray MD HPI Reason for consult: syncope 79-year-old female who lives at [facility] With the [facility], has a history of osteoporosis and Mild cognitive impairment presented to the ED earlier today from home after Losing her balance while carrying something heavy leading to L1 acute fracture. She says that she did not lose consciousness. She states that she has had several falls over the last few weeks and does have ecchymotic lesions of various degrees of healing on her body. She denies any prodrome leading up to the fall including visual changes, lightheadedness, palpitations, shortness of breath, headache chest pain. No focal weakness or paresthesias. Currently reporting 10/10 pain in the left low back and left chest. Denies any lower extremity weakness or paresthesias. No bowel/bladder dysfunction or saddle anesthesia. She is reporting a mild headache. Vitals on arrival within normal limits. Has L2 fracture that may be acute [facility] Past Medical History Medical History Numbness Skin lesion Abnormal EKG Chest pain Cognitive impairment Sinus pain Shoulder pain COVID-19 virus infection Lumbar pain Left shoulder pain Clavicle fracture Peripheral vascular disease Mass of left foot Headache Age related osteoporosis Renal calculi Encounter for Medicare annual wellness exam Left upper quadrant abdominal pain Positive Romberg test Loss of balance Osteoporosis Constipation by delayed colonic transit Anxiety Hearing loss Blurry vision Thyroid nodule Chest pain Cervical spondylosis with radiculopathy Cold extremities Skin rash Cervical radiculopathy due to degenerative joint disease of spine Degenerative disc disease, cervical Family History Family History Father No problems noted. Mother Cancer Skin cancer Sister Skin cancer Sister Lung cancer Surgical History Surgical History No pertinent past surgical history Social History Social History Household Members: Unknown / Unable to assess Household Members Other:: pt states I live with 50 other women , vague Housing: Assisted Living Facility Alcohol intake: current Alcohol intake frequency: holidays/special occasions only Alcohol type: wine Comment: 1:1 sitter Patient Tobacco Use Status: Never used Tobacco Smoked in Last 30 Days: No e-Cigarette/Vaping Use: Never Used Second Hand Smoke Exposure: Yes Use of substances other than those prescribed or required for medical reasons: Unable to respond Currently Displaying Signs/Symptoms of Drug Intoxication Withdrawal: No [facility] [facility] Practices: pt refusing to respond Advance Directives: No Advance Directives Information Provided: Yes Do you have a plan to hurt others: No Plan Recently lost weight without trying: Unsure Nutrition Risks: On aspiration precautions Patient : No : No Poor oral hygiene: No service: No Current occupational status: retired Cognitive needs: No Hearing needs: No Vision needs: No Meds Allergies Allergy/AdvReac Type Severity Reaction Status Date / Time елена Allergy Intermediate Rash Verified 04/11/24 09:58 Active Medications: Current Medications Acetaminophen (Acetaminophen 325 Mg Tablet) 650 mg PO Q6H PRN PRN Reason: Pain, Mild (Pain Scale 1-3), fever or headache Calcium Carbonate (Calcium Carbonate 750 Mg Tab.Chew) 750 mg PO Q4H PRN PRN Reason: Heartburn Enoxaparin Sodium (Enoxaparin Sodium 40 Mg/0.4 Ml Syringe) 40 mg SUBCUT Q24H [facility] Last Admin: 04/12/24 20:25 Dose: 40 mg Magnesium Hydroxide (Milk Of Magnesia 30 Ml Oral.Susp) 30 ml PO DAILY PRN PRN Reason: Constipation Melatonin (Melatonin 3 Mg Tablet) 6 mg PO BEDTIME PRN PRN Reason: Insomnia Morphine Sulfate (Morphine Sulfate 4 Mg/Ml Cartridge) 2 mg IVPUSH Q4H PRN; Protocol PRN Reason: Pain, Severe (Pain Scale 7-10) Oxycodone HCl (Oxycodone Hcl Immed Release 5 Mg Tablet) 5 mg PO Q6H PRN PRN Reason: Pain, Moderate(Pain Scale 4-6) Last Admin: 04/13/24 13:51 Dose: 5 mg Sodium Chloride (0.9 % Sodium Chloride Flush 3 Ml Syringe) 3 ml IVFLUSH QSHIFT [facility] Last Admin: 04/13/24 13:51 Dose: Not Given Vitamin D (Cholecalciferol (Vitamin D3) 25 Mcg Tablet) 25 mcg PO DAILY [facility] Home Medications ?Medication ?Instructions ?Recorded ?Confirmed ?Last Taken ?Type No Known Home Meds 04/11/24 04/11/24 Unknown History Physical Exam 2 Vital Signs: Vital Signs: Last Vital Signs Temp 99.1 F 04/13/24 16:00 Pulse 79 04/13/24 16:00 Resp 18 04/13/24 16:00 BP 163/77 H 04/13/24 16:00 Pulse Ox 95 04/13/24 16:00 O2 Del Method Room Air 04/13/24 16:00 BMI result Body Mass Index 20.0 Neuro: Other: She is alert, pleasant and cooperative. She is oriented to person, place, and partially to time. She Is Wednesday instead of . She knows the month and year. Her speech is fluent. Cranial nerves II through XII are normal. Muscle tone and strength are normal in all 4 extremities. She has difficulty moving because of pain in her back. Exam is nonfocal. Results Labs 04/13/24 05:47 04/13/24 05:47 Labs: Short CBC 04/13/24 Range/Units 05:47 WBC 6.8 (4.8-10.8) X10*3/uL Hgb 12.8 (12.0-16.0) g/dl Hct 39.3 (37.0-47.0) % Plt Count 169 (160-400) X10*3/uL BMP 04/13/24 05:47 Sodium 138 Potassium 3.7 Chloride 106 Carbon Dioxide 25 BUN 7 L Creatinine 0.61 Calcium 10.3 H Liver Function 04/13/24 Range/Units 05:47 Total Bilirubin 0.7 (0.0-1.0) mg/dL AST 25 (5-31) U/L ALT 16 (0-31) U/L Alkaline Phosphatase 66 (39-117) U/L Albumin 3.5 (3.5-5.0) g/dL Assessment and Plan (1) Compression fracture of L2: Status: Acute From a fall in which according to her was because she lost balance carrying something, weighing about 12 pounds. She specifically says that she did not pass out. Treat symptomatically with pain medications. (2) Memory deficit: Status: Acute She appears to have mild cognitive impairment. Workup should include TSH, B12 and folate levels CT of the brain and EEG Procedures Date of Service Date of Service: 04/13/24
[2024-04-13] MEDS: Morphine Sulfate 4 MG/ML CARTRIDGE 2 MG IVPUSH (17:01)
[2024-04-13 19:49] VITALS: BP 120/47; PULSE 88; RESP 20; TEMP 36.8; O2SAT 97
[2024-04-13] MEDS: Enoxaparin Sodium 40 MG/0.4 ML SYRINGE SUBCUT (20:09)
[2024-04-13] MEDS: Melatonin 3 MG TABLET 6 MG PO (20:09)
[2024-04-13] MEDS: 0.9 % Sodium Chloride Flush 3 ML SYRINGE IVFLUSH (20:12)
[2024-04-14] VITALS (9 sets, daily range): BP systolic 131–175; BP diastolic 65–82; PULSE 77–96; RESP 18–20; TEMP 36.4–37.3; O2SAT 94–97
[2024-04-14] MEDS: Cholecalciferol (Vitamin D3) 25 MCG TABLET PO (09:19)
[2024-04-14] MEDS: oxyCODONE HCl Immed Release 5 MG TABLET PO ×2 (09:19→15:33)
[2024-04-14] MEDS: 0.9 % Sodium Chloride Flush 3 ML SYRINGE IVFLUSH ×2 (09:25→15:33)
--- NOTE | 2024-04-14 09:53 | P.PNIM_ITS ---
Subjective Subjective Date of Service: 04/14/24 Interval History: Seen and examined this morning For back pain due to compression fracture Reports feeling a little bit better but still having back pain and requires assistance for ambulation Review of Systems Review of Systems: Yes all other systems are reviewed and are negative Constitutional Constitutional: Denies chills and Denies fever(s) Cardiovascular Cardiovascular: Denies chest pain and Denies dyspnea Respiratory Respiratory: Denies dyspnea Gastrointestinal Gastrointestinal: Denies abdominal pain Physical Exam 2 Vital Signs: Vital Signs: Last Vital Signs Temp 99.1 F 04/14/24 08:00 Pulse 77 04/14/24 08:00 Resp 20 04/14/24 08:00 BP 172/82 H 04/14/24 08:00 Pulse Ox 96 04/14/24 08:00 O2 Del Method Room Air 04/14/24 08:00 BMI result Body Mass Index 20.0 Const: General: cooperative, comfortable, no acute distress, alert and awake Nutritional Appearance: thin Orientation/consciousness: oriented to person and oriented to place Resp: Effort & Inspection: normal respiratory effort, able to speak in complete sentences, no respiratory distress and no use of accessory muscles Cardio: Rate: regular rate GI: Inspection: No distended Palpation (GI): Soft to palpation and nontender Neuro: Other: grossly nonfocal General: oriented to person, oriented to place and moves all extremities Extrem: Other: able to lift both legs against gravity General: Yes no pedal edema Objective Data Active Medications Acetaminophen (Acetaminophen 325 Mg Tablet) 650 mg PO Q6H PRN PRN Reason: Pain, Mild (Pain Scale 1-3), fever or headache Calcium Carbonate (Calcium Carbonate 750 Mg Tab.Chew) 750 mg PO Q4H PRN PRN Reason: Heartburn Enoxaparin Sodium (Enoxaparin Sodium 40 Mg/0.4 Ml Syringe) 40 mg SUBCUT Q24H [facility] Last Admin: 04/13/24 20:09 Dose: 40 mg Documented By: PAMELA Magnesium Hydroxide (Milk Of Magnesia 30 Ml Oral.Susp) 30 ml PO DAILY PRN PRN Reason: Constipation Melatonin (Melatonin 3 Mg Tablet) 6 mg PO BEDTIME PRN PRN Reason: Insomnia Last Admin: 04/13/24 20:09 Dose: 6 mg Documented By: PAMELA Morphine Sulfate (Morphine Sulfate 4 Mg/Ml Cartridge) 2 mg IVPUSH Q4H PRN; Protocol PRN Reason: Pain, Severe (Pain Scale 7-10) Last Admin: 04/13/24 17:01 Dose: 2 mg Documented By: PAT Oxycodone HCl (Oxycodone Hcl Immed Release 5 Mg Tablet) 5 mg PO Q6H PRN PRN Reason: Pain, Moderate(Pain Scale 4-6) Last Admin: 04/14/24 09:19 Dose: 5 mg Documented By: PAT Sodium Chloride (0.9 % Sodium Chloride Flush 3 Ml Syringe) 3 ml IVFLUSH QSHIFT [facility] Last Admin: 04/14/24 09:25 Dose: 3 ml Documented By: PAT Vitamin D (Cholecalciferol (Vitamin D3) 25 Mcg Tablet) 25 mcg PO DAILY [facility] Last Admin: 04/14/24 09:19 Dose: 25 mcg Documented By: PAT Labs 04/13/24 05:47 04/13/24 05:47 Assessment and Plan (1) Compression fx, lumbar spine: Status: Acute Plan This is a 79-year-old female with history of osteoporosis and unspecified cognitive impairment admitted for possible syncopal episode with L2 compression fracture Possible Syncope pt denies LOC, reports mechanical fall due to picking up heavy bag of cat foot head CT negative for acute intracranial abnormality. No evidence of infection unable to check orthostatics due to severe pain Echo with preserved ejection fraction EEG pending, can likely be done as outpatient Neurology consult - appears to have mild cognitive impairment, recommended TSH, B12, folate levels, CT brain (already done, no acute changes) and EEG (pending) Acute L2 compression fracture with history of multiple falls recently history of osteoporosis CT shows compression fracture of the L2 vertebral body with moderate central height loss and minimal 2 mm osseous retropulsion Conservative management prior to considering vertebroplasty as outpatient Continues to require IV morphine for adequate pain control PT rec STR Acute hypercalcemia calcium 11.5 trending down with fluid Vitamin-D deficiency oral replacement Acute left-sided chest contusion No rib fractures Pain control Incentive spirometry Unspecified cognitive disorder continue memantine Lovenox Full code Patient requires ongoing inpatient stay for pain control requiring IV narcotics, safe disposition Quality Stroke Does the patient have a stroke diagnosis?: No VTE Prior VTE?: No VTE Risk Level:: Medical - moderate - high VTE Device Contraindication: Treatment Not Indicated VTE Drug Contraindication: N/A - Med Ordered
[2024-04-14 10:46] LABS: Thyroid Stimulating Hormone 1.82 uIU/mL (0.32-4.0)
[2024-04-14 11:13] LABS: TSH reflex Free T4 1.52 uIU/mL (0.32-4.0)
[2024-04-14 11:24] LABS: Folate 9.9 ng/mL (> or = 4.0); Vitamin B12 346 pg/mL (200-900)
--- NOTE | 2024-04-14 11:44 | MHC.CM.PN ---
EMR REVIEWED, IMM DELIVERED TO BEDSIDE, PER HOSPITALIST PT WILL REMAIN INPT ANOTHER NIGHT FOR PAIN MANAGEMENT, CM MET W/PT SON BRAD AND GDTR AT BEDSIDE, PT AND BRAD VERY PLEASED PT ACCEPTED AT [facility] AND ARE AGREEABLE TRANSFER TO [facility] TOMORROW 04/15 AT 1PM, CM WILL CONT TO FOLLOW.
[2024-04-14] MEDS: Morphine Sulfate 4 MG/ML CARTRIDGE 2 MG IVPUSH (12:12)
[2024-04-14] MEDS: Melatonin 3 MG TABLET 6 MG PO (21:04)
[2024-04-14] MEDS: Enoxaparin Sodium 40 MG/0.4 ML SYRINGE SUBCUT (21:05)
[2024-04-14] MEDS: Acetaminophen 325 MG TABLET 650 MG PO (21:05)
[2024-04-15 03:13] VITALS: BP 140/75; PULSE 75; RESP 18; TEMP 36; O2SAT 95
[2024-04-15] MEDS: Morphine Sulfate 4 MG/ML CARTRIDGE 2 MG IVPUSH (06:02)
[2024-04-15] MEDS: 0.9 % Sodium Chloride Flush 3 ML SYRINGE IVFLUSH ×2 (06:03→08:04)
[2024-04-15 07:17] VITALS: BP 141/62; PULSE 73; RESP 18; TEMP 36.6; O2SAT 97
[2024-04-15] MEDS: Cholecalciferol (Vitamin D3) 25 MCG TABLET 50 MCG PO (08:04)
--- NOTE | 2024-04-15 10:11 | PM.DS ---
DS: Providers Provider Date of Service: 04/15/24 Date of admission: 04/12/24 16:00 Date of discharge: 04/15/24 Primary care physician: Yuli Gray MD Consults: 04/12/24 12:49 Consult to Neurology Routine Consulting Provider: [facility] Reason for consultation: syncope Has provider been notified: No Attending [facility] discharge[facility] Discharging clinician: Beulah Medrano DS: Diagnosis Discharge Diagnosis (1) Compression fx, lumbar spine: Status: Acute DS: Summary Hospital Course Hospital Course: From H&P on the day of admission 79-year-old female with history of osteoporosis and unspecified cognitive impairment presented to the ED earlier today from home after syncopized thing while carrying a heavy catheter bag. She states that she has had several falls over the last few weeks and does have ecchymotic lesions of various degrees of healing on her body. She denies any prodrome leading up to the fall including visual changes, lightheadedness, palpitations, shortness of breath, headache chest pain. No focal weakness or paresthesias. Currently reporting 10/10 pain in the left low back and left chest. Denies any lower extremity weakness or paresthesias. No bowel/bladder dysfunction or saddle anesthesia. She is reporting a mild headache. Vitals on arrival within normal limits. Hematology studies unremarkable. Renal function normal, electrolyte levels normal except for mildly elevated calcium level of 11.5. Hepatic function within normal limits. Troponin 3.8. Total CK 129. Urinalysis unremarkable. Head CT negative for any acute intracranial abnormality. CT chest and abdomen pelvis negative for any acute traumatic injury of the chest, abdomen or pelvis but does show an acute compression fracture of the L2 vertebral body with moderate central height loss and minimal 2 mm osseous retropulsion. In the ED, has been given 1 mg IV morphine. Possible Syncope pt denies LOC, reports mechanical fall due to picking up heavy bag of cat foot which caused her to fall over. head CT negative for acute intracranial abnormality. No evidence of infection. unable to check orthostatics due to pain with standing. Echo with preserved ejection fraction seen by Neurology consult - appears to have mild cognitive impairment, recommended TSH, B12, folate levels which were all wn., CT brain (already done, no acute changes) and EEG which can be obtained as an outpatient. No seizure activity noted during hospital stay. Acute L2 compression fracture with history of multiple falls recently history of osteoporosis CT shows compression fracture of the L2 vertebral body with moderate central height loss and minimal 2 mm osseous retropulsion Conservative management prior to considering MRI/bone scan and possible vertebroplasty as outpatient. seen by physical therapy who recommended STR for physical therapy. Acute hypercalcemia calcium 11.5, improved to near 10 with IVF Vitamin-D deficiency oral replacement hyperparathyroidism likely primary outpatient follow up recommended Unspecified cognitive disorder continue memantine Time Attestation Discharge Coordination Time (in mins): 35 Quality: Safe Use of Opioids Does Pt have an Active Cancer Diagnosis on the Problem List?: No Quality: Stroke Does the patient have a stroke diagnosis?: No Physical Exam Vital Signs: Vital Signs: Last Vital Signs Temp 97.8 F 04/15/24 07:17 Pulse 73 04/15/24 07:17 Resp 18 04/15/24 07:17 BP 141/62 H 04/15/24 07:17 Pulse Ox 97 04/15/24 07:17 O2 Del Method Room Air 04/15/24 07:17 BMI result Body Mass Index 20.0 Const: Other: forgetful General: cooperative, comfortable, no acute distress, alert, awake and confusion Nutritional Appearance: thin Orientation/consciousness: oriented to person, oriented to place and confusion Resp: Effort & Inspection: normal respiratory effort, able to speak in complete sentences, no respiratory distress and no use of accessory muscles Cardio: Rate: regular rate GI: Inspection: No distended Palpation (GI): Soft to palpation and nontender Neuro: Other: grossly nonfocal General: oriented to person, oriented to place, moves all extremities and confusion Extrem: Other: able to lift both legs against gravity, sensation intact General: Yes no pedal edema DS: Data Data Completed and Pending Labs on day of discharge: Laboratory Results - last 24 hr 04/13/24 04/14/24 05:47 10:24 Vitamin B12 346 Folate 9.9 TSH 1.82 1.52 Discharge Plan Discharge Anticipated Discharge Date/Time: 04/15/24 13:00 Patient Disposition: Xfer SNF Discharge Diagnosis: back pain due to compression fracture [facility]Outside[facility] - 1 Day (SHORT TERM REHAB) Yuli Vieira MD [Primary Care Provider] - 1 Week Discharge Medications: New oxycodone 5 mg Tablet 5 mg PO Q6H PRN (Reason: Pain, Moderate(Pain Scale 4-6)) Qty: 10 0RF Rx Instructions: Partial Fill upon patient request. cholecalciferol (vitamin D3) 25 mcg (1,000 unit) Tablet 50 mcg PO DAILY Qty: 1 0RF Discharge Orders: Discharge Order (Routine); Ordered 04/15/24 Ordered By: Beulah Medrano Activity on Discharge: As tolerated Stand Alone Forms: Patient Portal Discharge page Print Language: Nigerien Care Plan Goals: See below Health Concerns: Compression fracture due to mechanical fall Unspecified cognitive impairment vitamin D deficiency Plan of Treatment: Wean narcotic pain medication as tolerated Physical therapy due to compression fracture due to mechanical fall recommend outpatient EEG to complete workup routine monitoring of calcium levels outpatient follow up with pcp Take vitamin-D replacement as prescribed. monitor vitamin d levels Assessment: See discharge summary
[2024-04-15 11:07] VITALS: BP 127/61; PULSE 80; RESP 18; TEMP 36.6; O2SAT 95
[2024-04-15] MEDS: Acetaminophen 325 MG TABLET 650 MG PO (12:26)
--- NOTE | 2024-04-22 08:19 | P.CDIM_ITS ---
PROVIDER RESPONSE TEXT: To clarify, the appropriate diagnosis supported by the clinical indicators: Other (explain): likely due to fall and undelying osteoporosis QUERY TEXT: PHYSICIAN'S DOCUMENTATION REQUEST Date of Query: 04/18/2024 06:52 AM EDT Patient Name: Elizabeth Carver Admit Date: 04/12/2024 Dear Beulah BRUNER, RETROSPECTIVE QUERY A review of the medical record indicates additional documentation may be needed. Please review below and update the documentation accordingly. Documentation in the record indicates the patient was admitted with a fracture. Clinical Indicators: Progress notes: Acute L2 compression fracture with history of multiple falls recently, patient states she has had several falls over last few weeks. History of osteoporosis. Unable to check orthostatics due to pain with standing. CT shows compression fracture of L2 vertebral body with moderate central height loss and minimal 2 mm ossesous retropulsion. Conservative management prior to considering vertebroplasty as outpatient. IV morphine for adequate pain control. Please provide the following additional clarification regarding the fracture Etiology and Type: Traumatic Pathologic due to osteoporosis Pathologic due to other disease (please specify) Nontraumatic Other (explain) Clinically unable to determine (explain) Thank you, Yesi Whalen, CCS, CDIS Use of terms such as suspected, likely, concern for, or probable (associated with a specific diagnosi s that is being evaluated, monitored, or treated as if it exists) are acceptable and can be coded in the inpatient se tting, when documented at the time of discharge. Please use your independent medical judgment in providing your response. THIS QUERY IS PART OF THE PERMANENT MEDICAL RECORD
== END 2024-04-15 13:12 | disposition skilled nursing facility (03) | DRG 552 ==
LOC: HO.ED 16:03 → HO.EDOVER 20:35 → HO.IMC 04-12 14:55
PROVIDERS: Emergency Medicine; Hospitalist; Admitting Provider Physician Assistant; Emergency Provider Emergency Medicine; PCP Internal Medicine; Visit Provider Physician Assistant Medical
DX: S32.028A Other fracture of second lumbar vertebra, initial encounter for closed fracture (principal); W19.XXXA Unspecified fall, initial encounter; E21.0 Primary hyperparathyroidism; M81.0 Age-related osteoporosis without current pathological fracture; E55.9 Vitamin D deficiency, unspecified; G31.84 Mild cognitive impairment of uncertain or unknown etiology
CPT/HCPCS: 36415; 70450; 71250; 74176; 80048; 80053; 80076; 81001; 82306; 82550; 82607; 82746; 82947; 83690; 83970; 84443; 84484; 85025; 93005; 93306; 97116; 97162; 97530; 99222; 99285; J1650; J2270; J7120

== ENCOUNTER → 2024-04-11 20:05 | Outpatient (BNV) | payer MEDICARE, MEDICAID, SELFPAY | PROVIDERS: Admitting Provider Physician Assistant; Emergency Provider Emergency Medicine; PCP Internal Medicine; Visit Provider Physician Assistant | DX: S32.000A Wedge compression fracture of unspecified lumbar vertebra, initial encounter for closed fracture (principal) | CPT/HCPCS: 99223; 99231; 99232; 99239 ==

== ENCOUNTER → 2024-04-12 07:00 | Outpatient (BNV) | payer MEDICARE, MEDICAID, SELFPAY | PROVIDERS: Admitting Provider Physician Assistant; Emergency Provider Emergency Medicine; PCP Internal Medicine; Visit Provider Internal Medicine Cardiovascular Disease | DX: I36.1 Nonrheumatic tricuspid (valve) insufficiency (principal); R93.1 Abnormal findings on diagnostic imaging of heart and coronary circulation | CPT/HCPCS: 93306 ==

== ENCOUNTER → 2024-04-12 16:00 | Outpatient (BNV) | payer MEDICARE, MEDICAID, SELFPAY | PROVIDERS: Admitting Provider Physician Assistant; Emergency Provider Emergency Medicine; PCP Internal Medicine; Visit Provider Psychiatry & Neurology Neurology | DX: R41.3 Other amnesia (principal); S32.020A Wedge compression fracture of second lumbar vertebra, initial encounter for closed fracture | CPT/HCPCS: 99222 ==

== ENCOUNTER 2024-05-04 12:24 | Outpatient (REF) | payer SELFPAY ==
[2024-05-04 12:57] LABS: Calcium 12.7 mg/dL (8.4-10.2)
[2024-05-04 13:11] LABS: Parathyroid Hormone Intact 225.5 pg/mL (8.7-77.1)
== END 2024-05-04 12:25 | disposition home or self-care (01) ==
LOC: HO.MMNH2L 12:24
PROVIDERS: Visit Provider Internal Medicine
DX: F41.9 Anxiety disorder, unspecified (principal)
CPT/HCPCS: 36415; 82310; 83970

== ENCOUNTER 2024-05-16 11:21 | Outpatient (AMB) | payer MEDICARE, MEDICAID, SELFPAY ==
--- NOTE | 2024-05-16 11:26 | A.OFFPC_ITS ---
Vital Signs 05/16/24 11:28 Height 5 ft 8 in Weight 110 lb 6 oz BMI 16.8 BP 120/72 Blood Pressure Location Lt brachial Position Sitting Pulse 115 H Pulse Source Pulse Oximeter Pulse Oximetry (%) 90 L Oxygen Delivery Method Room Air Intake Visit Reasons: Discharge [facility] 05/11-Broken Leg Intake Note: Patient is here for hospital discharge follow up. Patient was discharged from [facility] on 05/11/24. 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 Required: No [place] Torch Operator: Not Required per policy Accompanied by: Self / Same As Patient Allergies елена Allergy (Intermediate, Verified 05/16/24 11:28) Rash Tobacco use date assessed: 05/16/24 Fall risk assessment: 1 Fall in past year Last assessed Fall Risk: 05/16/24 Dental Screening Dental Screen Date: 05/16/24 Did you have a dental visit in the last 12 months?: Yes Did you have a dental problem in the last 6 months where you did not have access to dental care?: No Was dental information given to patient?: Patient has dentist HPI HPI Comments History of Present Illness Details 79 y/o female patient who [facility] follow up. She was admitted at [facility] from 04/15 - 05/11 after she fell at home and had L2 compression fracture. She went into [facility] for physical therapy. Today reports feeling no pain, uses walker for ambulation. No concerns today. [facility] Medical History Numbness Skin lesion Abnormal EKG Chest pain Cognitive impairment Sinus pain Shoulder pain COVID-19 virus infection Lumbar pain Left shoulder pain Clavicle fracture Peripheral vascular disease Mass of left foot Headache Age related osteoporosis Renal calculi Encounter for Medicare annual wellness exam Left upper quadrant abdominal pain Positive Romberg test Loss of balance Osteoporosis Constipation by delayed colonic transit Anxiety Hearing loss Blurry vision Thyroid nodule Chest pain Cervical spondylosis with radiculopathy Cold extremities Skin rash Cervical radiculopathy due to degenerative joint disease of spine Degenerative disc disease, cervical Surgical History No pertinent past surgical history Family History Father No problems noted. Mother Cancer Skin cancer Sister Skin cancer Sister Lung cancer Social History Household Members: Unknown / Unable to assess Household Members Other:: pt states I live with 50 other women , vague Housing: Assisted Living Facility Alcohol intake: current Alcohol intake frequency: holidays/special occasions only Alcohol type: wine Comment: 1:1 sitter Patient Tobacco Use Status: Never used Tobacco e-Cigarette/Vaping Use: Never Used Second Hand Smoke Exposure: Yes service: No Current occupational status: retired Cognitive needs: No Hearing needs: No Vision needs: No Questionnaire PHQ-9 Over the last 2 weeks, how often have you been bothered by any of the following problems? 1. Little interest or pleasure in doing things: not at all 2. Feeling down, depressed, or hopeless: not at all 3. Trouble falling or staying asleep, or sleeping too much: not at all 4. Feeling tired or having little energy: not at all 5. Poor appetite or overeating: not at all 6. Feeling bad about yourself - or that you are a failure or have let yourself or your family down: not at all 7. Trouble concentrating on things, such as reading the newspaper or watching television: not at all 8. Moving or speaking so slowly that other people could have noticed. Or the opposite - being so fidgety or restless that you have been moving around a lot more than usual: not at all 9. Thoughts that you would be better off or of hurting yourself in some way: not at all Total score: 0 Depression Screening Interpretation: Negative Depression Screening Done: Yes Source: Developed by Drs. Tam Marcos, Crissy Akbar, Trav Beck and colleagues, with an educational silverio from [employer]. Thrive Questionnaire Date Thrive assessed: 04/12/24 Are you currently unemployed and looking for a job?: No AUDIT C Alcohol Use Questionnaire (AUDIT-C) 1. How often do you have a drink containing alcohol?: Monthly or less 2. How many drinks containing alcohol do you have on a typical day when you are drinking?: 1 or 2 Total Score: 1 CEZAR-7 AMB Questionnaire CEZAR-7 Date CEZAR - 7 assessed: 05/16/24 Feeling nervous, anxious, or on edge: 0 = Not at all Not being able to stop or control worryin = Not at all Worrying too much about different things: 0 = Not at all Trouble relaxin = Not at all Being so restless that it is hard to sit still: 0 = Not at all Becoming easily annoyed or irritable: 0 = Not at all Feeling afraid as if something awful might happen: 0 = Not at all Total CEZAR-7 score (0-4 normal; 5-9 mild; 10-14 moderate; 15-21 severe): 0 Source: Developed by Drs. Tam Marcos, Crissy Akbar, Trav Beck and colleagues, with an educational silverio from [employer]. Review of Systems Const All systems reviewed & are unremarkable except as noted in HPI and below Physical exam (Primary Care) Vital Signs: Last Vital Signs Pulse 115 H 05/16/24 11:28 BP 120/72 05/16/24 11:28 Pulse Ox 90 L 05/16/24 11:28 Oxygen Delivery Method Room Air 05/16/24 11:28 BMI result Body Mass Index 16.8 Tobacco/Smoking Status: Tobacco use Status Tobacco use date assessed 05/16/24 05/16/24 11:38 Patient Tobacco Use Status Never used Tobacco 05/16/24 11:38 e-Cigarette/Vaping Use Never Used 05/16/24 11:38 PHQ-9: PHQ-9 Score PHQ-9: Total score 0 05/16/24 11:38 Depression Screening Interpretation: Negative Thrive Assessment: Date of Thrive Assessment Date Thrive assessed 04/12/24 05/16/24 11:38 Const General: no acute distress Nutritional Appearance: well nourished Orientation/consciousness: patient oriented x3 Limitations: ambulation with walker Resp Effort & Inspection: normal respiratory effort Auscultation: clear to auscultation bilaterally Cardio Heart sounds: S1 normal heart sound present and S2 normal heart sound present Back/Spine/Pelvis Back: back tenderness Thoracic/Lumbar Spine: thoraco-lumbar ROM limited (Due to aging and mild pain/discomfort) Neuro General: patient oriented x3 and moves all extremities Psych Speech and movement: Normal speech and movement present Results AMB Hemoglobin A1c AMB Hemoglobin A1c 5.3 % Last Edit by JERONIMO Dawn on 05/16/24 11:40 Assessment and Plan Assessment & Plan (1) Compression fx, lumbar spine: Code(s): S32.000A - Wedge compression fracture of unspecified lumbar vertebra, initial encounter for closed fracture Qualifiers: Encounter type: initial encounter Lumbar vertebra fracture level: L2 Qualified Code(s): S32.020A - Wedge compression fracture of second lumbar vertebra, initial encounter for closed fracture Plan: Stable condition, denies much pain. Ambulates with a walker No concerns today F/u with PCP as schdeuled. Orders: Orders AMB Hemoglobin A1c Today Z13.1 - Encounter for screening for diabetes mellitus Coding Level of Care Code Est Pt Level 4 (03548) Diagnoses Compression fracture of L2 vertebra, initial encounter S32.020A Encounter type: initial encounter Lumbar vertebra fracture level: L2 Time Spent (min) 20 Comment Spent reviewing hospital notes.
[2024-05-16 11:28] VITALS: BP 120/72; PULSE 115; O2SAT 90; BMI 16.8
== END 2024-05-16 11:56 | disposition home or self-care (01) ==
PROVIDERS: PCP Internal Medicine; Visit Provider Nurse Practitioner Family
DX: S32.020A Wedge compression fracture of second lumbar vertebra, initial encounter for closed fracture (principal); Z13.1 Encounter for screening for diabetes mellitus

== ENCOUNTER → 2024-05-16 11:21 | Outpatient (BNVA) | payer MEDICARE, MEDICAID, SELFPAY | PROVIDERS: PCP Internal Medicine; Visit Provider Nurse Practitioner Family | DX: E11.9 Type 2 diabetes mellitus without complications (principal); S32.000D Wedge compression fracture of unspecified lumbar vertebra, subsequent encounter for fracture with routine healing | CPT/HCPCS: 83036; 96127; 99212 ==

== ENCOUNTER 2024-05-28 06:12 | Inpatient (IN) | payer MEDICARE, MEDICAID, SELFPAY ==
--- NOTE | ~2024-05-28 | CT_ITS ---
EXAMINATION: CT HEAD WITHOUT CONTRAST CLINICAL INFORMATION: Headache and dizziness COMPARISON: Brain MRI July 15, [address] July 08, 2021 TECHNIQUE: Contiguous axial imaging was performed from the skull base to vertex without intravenous administration of contrast. This CT examination was performed using dose optimization techniques as appropriate, variously including the following: *Automated exposure control *Adjustment of mA and/or kV according to patient size (this includes techniques or standardized protocols for targeted exams where dose is matched to indication/reason for exam; i.e. extremities or head) *Use of iterative reconstruction technique DLP: 605 mGy-cm FINDINGS: There is no evidence of acute intracranial hemorrhage or territorial infarction. No abnormal mass effect or midline shift is appreciated. Doran-white differentiation is well preserved. No extra-axial fluid collections. The ventricular system and cortical sulci are prominent, consistent with age-appropriate volume loss. There are areas of low density in the periventricular and subcortical white matter, most consistent with sequelae of microvascular ischemic change. Soft tissues and osseous structures are unremarkable. There are calcifications of the cavernous internal carotid arteries. The visualized paranasal sinuses and mastoid air cells are well aerated. CT/CT head/brain wo IV con IMPRESSION: Chronic microvascular ischemic changes with no CT evidence of acute intracranial abnormality. Electronically signed by: Rolan Mota MD 05/28/2024 09:01 AM EDT
--- NOTE | ~2024-05-28 | CT_ITS ---
EXAMINATION: CT ABDOMEN AND PELVIS WITHOUT CONTRAST CLINICAL INFORMATION: Abdominal pain COMPARISON: CT chest, abdomen and pelvis April 11, 2024 TECHNIQUE: Multidetector volumetric imaging was performed from the superior aspect of the liver through the pubic symphysis. Sagittal and coronal reformatted images were obtained on the technologist's workstation. This CT examination was performed using dose optimization techniques as appropriate, variously including the following: *Automated exposure control *Adjustment of mA and/or kV according to patient size (this includes techniques or standardized protocols for targeted exams where dose is matched to indication/reason for exam; i.e. extremities or head) *Use of iterative reconstruction technique DLP: 352 mGy-cm FINDINGS: Visualized lung bases are well aerated. The liver is normal in size. The gallbladder is normal in appearance. There is mild fatty atrophy of the pancreas. The spleen and adrenal glands are unremarkable. Symmetrically sized kidneys. Tiny bilateral nonobstructing renal calculi are again noted. There is no hydronephrosis of either kidney. Bilateral renal cysts again appreciated. Normal caliber loops of small and large bowel. Moderate colonic diverticulosis without CT evidence to suggest active diverticulitis. Mild to moderate colonic stool burden. Normal appendix. Normal caliber abdominal aorta demonstrating mild to moderate atherosclerotic disease. No retroperitoneal lymphadenopathy. Stable tiny fat-containing umbilical hernia. The bladder is normal in appearance. The uterus is surgically absent. No gross free pelvic fluid. Similar tiny fat-containing left inguinal hernia. Diffuse osteopenia. Mild degenerative changes of the spine. Stable L2 compression deformity. CT/CT abdomen pelvis wo IV con IMPRESSION: 1. Colonic diverticulosis without CT evidence to suggest active diverticulitis. 2. Tiny bilateral nonobstructing renal calculi. No hydronephrosis. 3. Mild to moderate colonic stool burden. Fleischner guidelines were followed. Electronically signed by: Rolan Mota MD 05/28/2024 08:23 AM EDT
[2024-05-28 06:22] VITALS: BP 168/70; PULSE 110; O2SAT 94
[2024-05-28 06:25] VITALS: BP 148/70; PULSE 77; RESP 17; TEMP 36.6; O2SAT 97
[2024-05-28 06:32] VITALS: BMI 18.0
--- NOTE | 2024-05-28 07:50 | ECG_ITS ---
Test Reason : ABDOMINAL PAIN Blood Pressure : / mmHG Vent. Rate : 073 BPM Atrial Rate : 073 BPM P-R Int : 152 ms QRS Dur : 078 ms QT Int : 366 ms P-R-T Axes : 063 -39 048 degrees QTc Int : 403 ms Normal sinus rhythm Left axis deviation Minimal voltage criteria for LVH, may be normal variant ( R in aVL ) Abnormal ECG When compared with ECG of 11-APR-2024 11:13, QRS axis Shifted left Referred By: Nori Dang Electronically Signed By:REYES HENNING
--- NOTE | 2024-05-28 07:51 | ED.ABDPAIN ---
HPI - Abdominal Pain General Chief Complaint: Abdominal Pain Stated Complaint: nauseous and dizziness Time Seen by Provider: 05/28/24 07:42 Source: patient and EMS Mode of arrival: EMS Limitations: no limitations History of Present Illness ED Provider: DR. Dang HPI narrative: 79-year-old female brought in by ambulance for evaluation of abdominal pain and headache. Patient woke up from sleep with lower abdominal pain at 04:00, patient feels nauseous no nausea, no vomiting last bowel movement was last night and was normal with formed stool with no blood, passing flatus, no dysuria, no frequency urination, no blood in the urine, no fever, no chills, patient declined any past abdominal surgery. Patient now feels better headache is better, mild suprapubic abdominal pain. No weakness, no numbness, walking with steady gait. Related Data Previous Rx's ?Medication ?Instructions ?Recorded cholecalciferol (vitamin D3) 25 50 mcg (2 x 25 mcg (1,000 unit)) 04/15/24 mcg (1,000 unit) tablet PO DAILY #1 tab oxycodone 5 mg tablet 5 mg PO Q6H PRN Pain, 04/15/24 Moderate(Pain Scale 4-6) #10 tabs cefuroxime axetil 500 mg tablet 500 mg PO BID #14 tabs 05/28/24 Allergies Allergy/AdvReac Type Severity Reaction Status Date / Time елена Allergy Intermediate Rash Verified 05/28/24 06:34 Review of Systems Review of Systems All other systems are reviewed and are negative Constitutional: Reports as per HPI and Reports no additional constitutional complaints Eyes: Reports as per HPI and Reports no additional eye complaints Reports system reviewed and no additional complaints, except as documented Cardiovascular: Reports as per HPI and Reports no additional cardiovascular complaints Respiratory: Reports as per HPI and Reports no additional respiratory complaints Gastrointestinal: Reports as per HPI and Reports no additional gastrointestinal complaints Genitourinary: Reports no additional female genitourinary complaints Musculoskeletal: Reports no additional musculoskeletal complaints Skin/Breast: Reports system reviewed and no additional complaints, except as docu Psychiatric: Reports no additional psychiatric complaints Endocrine: Reports no additional endocrine complaints Hematologic/Lymphatic: Reports no additional hematologic/lymphatic complaints Allergic/Immunologic: Reports no additional allergic/immunologic complaints Reports system reviewed and no additional complaints, except as documented and Reports Abnormal speech present [facility] Past Medical History Medical History Numbness Skin lesion Abnormal EKG Chest pain Cognitive impairment Sinus pain Shoulder pain COVID-19 virus infection Lumbar pain Left shoulder pain Clavicle fracture Peripheral vascular disease Mass of left foot Headache Age related osteoporosis Renal calculi Encounter for Medicare annual wellness exam Left upper quadrant abdominal pain Positive Romberg test Loss of balance Osteoporosis Constipation by delayed colonic transit Anxiety Hearing loss Blurry vision Thyroid nodule Chest pain Cervical spondylosis with radiculopathy Cold extremities Skin rash Cervical radiculopathy due to degenerative joint disease of spine Degenerative disc disease, cervical Surgical History No pertinent past surgical history Family History Family History Father No problems noted. Mother Cancer Skin cancer Sister Skin cancer Sister Lung cancer Social History Social History Household Members: Unknown / Unable to assess Household Members Other:: pt states I live with 50 other women , vague Housing: Assisted Living Facility Alcohol intake: current Alcohol intake frequency: holidays/special occasions only Alcohol type: wine Comment: 1:1 sitter Patient Tobacco Use Status: Never used Tobacco Smoked in Last 30 Days: No e-Cigarette/Vaping Use: Never Used Second Hand Smoke Exposure: Yes Use of substances other than those prescribed or required for medical reasons: No Advance Directives: No Advance Directives Information Provided: No service: No Current occupational status: retired Cognitive needs: No Hearing needs: No Vision needs: No Physical Exam ED Vital Signs: Vital Signs - 24 hr 05/28/24 06:25 05/28/24 09:42 Temperature 97.9 F Pulse Rate 77 80 Respiratory Rate 17 16 Blood Pressure 148/70 H 150/70 H Pulse Oximetry 97 Oxygen Delivery Method Room Air Room Air BMI result Body Mass Index 18.0 Vital signs have been reviewed and appear to be correct. Blood pressure elevated. Heart rate normal. Respiratory rate normal. Temperature normal. Oxygen saturation normal. Appearance: Alert. Oriented X3. No acute distress. Head: Normal external exam. Normocephalic. Atraumatic. No Coy signs noted. No raccoon eyes noted Eyes: PERRLA. EOMI. Conjunctiva and sclera normal. Eyelids normal. ENT: TM's Normal. Pharynx normal. Uvula midline. Moist mucous membranes. No trismus noted. No drooling noted. No muffled voice noted. Neck: Normal inspection. Neck supple. FROM. No adenopathy. Thyroid Normal. No meningeal signs. No neck mass noted. CVS: Normal heart rate and rhythm. Heart sound normal. No murmurs noted. Pulses normal throughout. Respiratory: No respiratory distress. Painless inspiration. Breath sounds normal. No wheezes/rales/rhonchi noted. Chest nontender. No accessory muscle usage noted or decreased air movement noted. Abdomen: Soft and nontender. Bowel sounds normal in all 4 quadrants. No distention noted. No organomegaly noted. No visible injury noted. Back: No CVA tenderness. Full range of motion noted. Skin: Skin warm and dry. Normal skin color. Normal skin turgor. No rashes/lesions/lacerations noted. Extremities: No lower extremity edema. Extremities exhibit normal range of motion. Extremities nontender. Neuro: Oriented X 3. Cranial nerve exam: II-XII are grossly intact No motor deficit. No sensory deficit. Reflexes normal. Cerebellar exam, no [id number] dysmetria, able to walk unsteady gait, no nystagmus. NIH Stroke Scale Time: 08:44 Level of Consciousness: Alert Level of Consciousness Questions: Answers both questions correctly Level of Consciousness Commands: Performs both tasks correctly Best Gaze: Normal Visual: No visual loss Facial Palsy: Normal Motor Arm (Right): No drift Motor Arm (Left): No drift Motor Leg (Right): No drift Motor Leg (Left): No drift Limb Ataxia: Absent Sensory: Normal Best Language: No aphasia Dysarthia: Normal Extinction and Inattention: No abnormality Score: 0 Course Reevaluation(s) Reevaluation #1: lower abdominal pain started 04:00 and shortly resolved, CT abdomen and pelvis is unremarkable for acute intra-abdominal pathology. Patient also woke up with headache and dizziness normal neuro exam, normal cerebellar exam, normal head CT. Labs is showing simple UTI with no sepsis or pyelonephritis will start the patient on cefuroxime and encouraged to drink plenty of fluids. 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 Time: 10:22 Medical Decision Making Differential Diagnosis Differential Diagnoses: The differential diagnosis associated with the presentation includes ( UTI, pyelonephritis, cystitis, acute appendicitis, colitis, diverticulitis, electrolyte derangement, severe anemia, abnormal calcium level) Admission/Observation Consideration of admission/observation: Escalation of care including admission/observation considered Lab Data MDM Lab Attestation statement: I reviewed the patient's lab results. 05/28/24 08:10 05/28/24 08:10 Labs: Lab Results 05/28/24 05/28/24 05/28/24 Range/Units 07:56 08:10 09:00 WBC 7.4 (4.8-10.8) X10*3/uL RBC 4.08 L (4.20-5.50) X10*6/uL Hgb 12.0 (12.0-16.0) g/dl Hct 36.4 L (37.0-47.0) % MCV 89.2 (80.0-98.0) fL MCH 29.4 (27.0-33.0) pg MCHC 33.0 (31.0-35.0) g/dl RDW 13.2 (11.0-16.0) % Plt Count 280 (160-400) X10*3/uL MPV 9.4 (9.4-12.3) fL Immature Gran % (Auto) 0.4 (0.0-0.4) % Neut % (Auto) 74.5 H (45-73) % Lymph % (Auto) 17.6 L (20-40) % Bibb % (Auto) 6.6 (2-11) % Eos % (Auto) 0.5 (0-4) % Baso % (Auto) 0.4 (0-2) % Lymph # (Auto) 1.3 (1.2-4.9) X10*3/uL Bibb # (Auto) 0.5 (0.1-1.2) X10*3/uL Eos # (Auto) 0.0 (0.0-0.4) X10*3/uL Baso # (Auto) 0.0 (0.0-0.2) X10*3/uL Abs Immat Gran (auto) 0.03 (0.00-0.03) X10*3/uL Absolute Neuts (auto) 5.5 (2.0-8.3) x10*3/uL Absolute Nucleated RBC 0.000 (0.0-0.012) X10*3/uL Nucleated RBC % (auto) 0.0 (0.0-0.2) /100WBC Sodium 141 (135-145) mmol/L Potassium 3.7 (3.3-5.1) mmol/L Chloride 104 (96-108) mmol/L Carbon Dioxide 29 (22-29) mmol/L Anion Gap 12 (12-20) BUN 12 (9-16) mg/dL Creatinine 0.75 (0.5-1.4) mg/dL Estim Creat Clear Calc 51.7 Estimated GFR > 60 Random Glucose 106 (60-115) mg/dL Calcium 12.8 H* (8.4-10.2) mg/dL Total Bilirubin 0.4 (0.0-1.0) mg/dL Direct Bilirubin 0.2 (0.0-0.5) mg/dL AST 21 (5-31) U/L ALT 19 (0-31) U/L Alkaline Phosphatase 119 H (39-117) U/L Troponin I High Sens 10.8 D (<3.5-17.0) ng/L Total Protein 7.4 (6.5-8.0) g/dL Albumin 4.4 (3.5-5.0) g/dL Lipase 20 (8-78) U/L Urine Color Yellow Urine Appearance Cloudy Urine pH 7.0 (5.0-9.0) Ur Specific [place] 1.010 (1.005-1.025) Urine Protein Negative (Neg-Trace) mg/dL Urine Glucose (UA) Negative (Negative) mg/dL Urine Ketones Negative (Negative) mg/dL Urine Blood Negative (Negative) Urine Nitrite Positive H (Negative) Ur Leukocyte Esterase Large (3+) H (Negative) Urine RBC 0-2 (0-2) /HPF Urine WBC >50 H (0-5) /HPF Ur Squamous Epith Cells 0-2 (0-2) /HPF Urine Bacteria 4+ (None Seen) Hyaline Casts 0-2 (0-2) /LPF Influenza Type A (PCR) NEGATIVE (Negative) Influenza Type B (PCR) NEGATIVE (Negative) RSV RNA Qual (PCR) NEGATIVE (Negative) SARS-CoV-2 RNA (RT-PCR) NEGATIVE (Negative) Independent Interpretation I performed an independent interpretation of an: CT Scan ( Head/abdomen / pelvic: Unremarkable CTs.) Radiology Impression Discussion of test interpretation with radiology: I have reviewed the radiologist's reading. Medications Administered Discontinued Medications Generic Name Dose Route Start Last Admin Trade Name Freq PRN Reason Stop Dose Admin Cefuroxime Axetil 500 mg 05/28/24 08:51 05/28/24 09:37 Cefuroxime Axetil 500 Mg Tablet PO 05/28/24 08:52 500 mg ONCE ONE Administration Sodium Chloride 1,000 mls @ 999 mls/hr 05/28/24 07:50 05/28/24 08:11 Ns IV 05/28/24 08:50 999 mls/hr .Q1H1M ONE Administration Sodium Chloride 1,000 mls @ 999 mls/hr 05/28/24 09:13 05/28/24 09:37 Ns IV 05/28/24 10:13 999 mls/hr .Q1H1M ONE Administration Discharge Plan Discharge Clinical Impression: Acute UTI, Headache, Abdominal pain, Hypercalcemia Patient Disposition: Admitted As Inpatient Additional Instructions: drink plenty of fluids and follow-up with your PCP. Print Language: Albanian
[2024-05-28] MEDS: 0.9 % Sodium Chloride 1,000 ML 999 ML IV ×2 (08:11→09:37)
[2024-05-28 08:19] LABS: MANUAL DIFF FLAG NO
[2024-05-28 08:21] LABS: Basophils Percent Auto 0.4 % (0-2); Eosinophils Percent Auto 0.5 % (0-4); Hematocrit 36.4 % (37.0-47.0); Imm Gran Abs Auto 0.03 X10*3/uL (0.00-0.03); Imm Gran Pct Auto 0.4 % (0.0-0.4); Lymphocytes Absolute Auto 1.3 X10*3/uL (1.2-4.9); Lymphocytes Percent Auto 17.6 % (20-40); Mean Corpuscular Hemoglobin 29.4 pg (27.0-33.0); Mean Corpuscular Volume 89.2 fL (80.0-98.0); Mean Platelet Volume 9.4 fL (9.4-12.3); Monocytes Absolute Auto 0.5 X10*3/uL (0.1-1.2); Monocytes Percent Auto 6.6 % (2-11); Neutrophils Absolute Auto 5.5 x10*3/uL (2.0-8.3); Neutrophils Percent Auto 74.5 % (45-73); Platelet Count 280 X10*3/uL (160-400); Red Blood Count 4.08 X10*6/uL (4.20-5.50); Red Cell Distribution Width 13.2 % (11.0-16.0); White Blood Count 7.4 X10*3/uL (4.8-10.8)
[2024-05-28 08:25] LABS: Appearance Urine Cloudy; Color Urine Yellow; Glucose Urine UA Negative (Negative); Leukocyte Esterase Urine Large (3+) (Negative); Nitrite Urine Positive (Negative); UMIC TRIGGER UACC YES; Urine Blood Negative (Negative); Urine Ketones Negative (Negative); Urine Protein Negative (Neg-Trace)
[2024-05-28 09:03] LABS: Bacteria Urine 4+ (None Seen); Hyaline Casts Urine 0-2 /LPF (0-2); RBC Urine 0-2 /HPF (0-2); Squamous Epithelial Cell Urine 0-2 /HPF (0-2); UACC Culture Trigger YES; WBC Urine >50 /HPF (0-5)
[2024-05-28 09:08] LABS: Troponin-I High Sensitivity 10.8 ng/L (<3.5-17.0)
[2024-05-28 09:14] LABS: Alanine Aminotransferase 19 U/L (0-31); Albumin Level 4.4 g/dL (3.5-5.0); Alkaline Phosphatase 119 U/L (39-117); Anion Gap 12 (12-20); Aspartate Amino Transferase 21 U/L (5-31); Bilirubin Direct 0.2 mg/dL (0.0-0.5); Bilirubin Total 0.4 mg/dL (0.0-1.0); Blood Urea Nitrogen 12 mg/dL (9-16); Calcium 12.8 mg/dL (8.4-10.2); Carbon Dioxide 29 mmol/L (22-29); Chloride 104 mmol/L (96-108); Creatinine Clr Calc Pharmacy 51.7; Estimated Glomerular Filt Rate > 60; Glucose Random 106 mg/dL (60-115); Lipase 20 U/L (8-78); Potassium 3.7 mmol/L (3.3-5.1); Sodium 141 mmol/L (135-145); Total Protein 7.4 g/dL (6.5-8.0)
[2024-05-28] MEDS: cefuroxime axetiL 500 MG TABLET PO (09:37)
[2024-05-28 09:42] VITALS: BP 150/70; PULSE 80; RESP 16
[2024-05-28 09:51] LABS: Influenza A PCR NEGATIVE (Negative); Influenza B PCR NEGATIVE (Negative); Resp Syncy Virus RNA Qual PCR NEGATIVE (Negative); SARS COV2 PCR INHOUSE NEGATIVE (Negative)
--- NOTE | 2024-05-28 11:29 | P.HPHOSP_ITS ---
History of Present Illness Date of Service: 05/28/24 Attending physician on admission: Cate Bearden Chief Complaint: N/V, abd pain Pt is a 79-year-old female with a PMH significant for?osteoporosis, unspecified cognitive impairment, hypercalcemia, vitamin-D deficiency, and hyperparathyroidism who presents to the ED from [facility] for evaluation nausea, headache, and abdominal pain since last night. Patient is a poor historian with significant short-term memory deficits, though she is alert and oriented to self, place, and time. Patient initially told EMS and ED provider she woke from sleeping at 04:00 with abdominal pain and nausea but no vomiting. Had large formed bowel movement yesterday. No diarrhea. However, at time of interview and exam for this provider, patient can not remember what brought her in. Stops and thinks for a moment and then states ?I think I fell in the kitchen due to weakness from not eating well. Currently has no acute medical complaints. Denies nausea, vomiting, abdominal pain. No chest pain/pressure, palpitations. No shortness a breath or difficulty breathing. Denies polyuria or dysuria. Spoke with pt's son states she has slowly been getting more forgetful and has been losing a weight lately due to not eating much. Recently had STR stay at [facility] but was discharged back to assisted living on 05/11. In the ED pt was mildly hypertensive 50/70, vitals otherwise stable and WNL. Labs were significant for hypercalcemia of 12.8, otherwise grossly unremarkable. UA consistent with UTI. Tested negative for RSV, flu, COVID. CTA of head negative for acute intracranial abnormality, though showed chronic microvascular ischemic changes. CT of abdomen/pelvis negative for acute abdomen but showed colonic diverticulosis without active diverticulitis, tiny bilateral nonobstructing renal calculi, without hydronephrosis and [id number] colonic stool burden. EKG demonstrated normal sinus rhythm without evidence of significant ST elevations or depressions. Pt was treated with 2L IVF and cefuroxime 500 mg p.o.. Pt will be admitted to the hospital under observation for treatment and further observation of generalized weakness in the setting of hypercalcemia and UTI. Review of Systems 2 Review of Systems: Nausea,, abdominal pain Generalized weakness Patient otherwise has acute medical complaints PMFSH Medical History Numbness Skin lesion Abnormal EKG Chest pain Cognitive impairment Sinus pain Shoulder pain COVID-19 virus infection Lumbar pain Left shoulder pain Clavicle fracture Peripheral vascular disease Mass of left foot Headache Age related osteoporosis Renal calculi Encounter for Medicare annual wellness exam Left upper quadrant abdominal pain Positive Romberg test Loss of balance Osteoporosis Constipation by delayed colonic transit Anxiety Hearing loss Blurry vision Thyroid nodule Chest pain Cervical spondylosis with radiculopathy Cold extremities Skin rash Cervical radiculopathy due to degenerative joint disease of spine Degenerative disc disease, cervical Family History Father No problems noted. Mother Cancer Skin cancer Sister Skin cancer Sister Lung cancer Surgical History No pertinent past surgical history Social History Household Members: Unknown / Unable to assess Household Members Other:: pt states I live with 50 other women , vague Housing: Assisted Living Facility Alcohol intake: current Alcohol intake frequency: holidays/special occasions only Alcohol type: wine Comment: 1:1 sitter Patient Tobacco Use Status: Never used Tobacco Smoked in Last 30 Days: No e-Cigarette/Vaping Use: Never Used Second Hand Smoke Exposure: Yes Use of substances other than those prescribed or required for medical reasons: No Advance Directives: No Advance Directives Information Provided: No service: No Current occupational status: retired Cognitive needs: No Hearing needs: No Vision needs: No Meds Allergies Allergy/AdvReac Type Severity Reaction Status Date / Time елена Allergy Intermediate Rash Verified 05/28/24 06:34 Physical Exam 2 Vital Signs and Narrative: Vital Signs: Last Vital Signs Temp 97.9 F 05/28/24 06:25 Pulse 80 05/28/24 09:42 Resp 16 05/28/24 09:42 BP 150/70 H 05/28/24 09:42 Pulse Ox 97 05/28/24 06:25 O2 Del Method Room Air 05/28/24 09:42 BMI result Body Mass Index 18.0 General: AOx3, but not to situation. In no acute distress Resp: CTA bilaterally CVS: S1, S2, RRR GI: +BS, NT, no distention Skin: Warm, dry. No observed significant areas of ecchymosis. Neuro: Cranial nerves II-XII grossly intact bilaterally. Motor grossly intact bilaterally. Pt with significant short term impairment. Extremities: No edema Psych: Pleasantly confused Results Labs 05/28/24 08:10 05/28/24 08:10 Labs: Laboratory Results - last 24 hr 05/28/24 05/28/24 05/28/24 07:56 08:10 09:00 MCV 89.2 MCH 29.4 MCHC 33.0 RDW 13.2 Plt Count 280 MPV 9.4 Immature Gran % (Auto) 0.4 Neut % (Auto) 74.5 H Lymph % (Auto) 17.6 L Desha % (Auto) 6.6 Eos % (Auto) 0.5 Baso % (Auto) 0.4 Lymph # (Auto) 1.3 Desha # (Auto) 0.5 Eos # (Auto) 0.0 Baso # (Auto) 0.0 Abs Immat Gran (auto) 0.03 Absolute Neuts (auto) 5.5 Absolute Nucleated RBC 0.000 Nucleated RBC % (auto) 0.0 Anion Gap 12 Estim Creat Clear Calc 51.7 Estimated GFR > 60 Random Glucose 106 Calcium 12.8 H* Total Bilirubin 0.4 Direct Bilirubin 0.2 AST 21 ALT 19 Alkaline Phosphatase 119 H Troponin I High Sens 10.8 D Total Protein 7.4 Albumin 4.4 Lipase 20 Urine Color Yellow Urine Appearance Cloudy Urine pH 7.0 Ur Specific Almond 1.010 Urine Protein Negative Urine Glucose (UA) Negative Urine Ketones Negative Urine Blood Negative Urine Nitrite Positive H Ur Leukocyte Esterase Large (3+) H Urine RBC 0-2 Urine WBC >50 H Ur Squamous Epith Cells 0-2 Urine Bacteria 4+ Hyaline Casts 0-2 Influenza Type A (PCR) NEGATIVE Influenza Type B (PCR) NEGATIVE RSV RNA Qual (PCR) NEGATIVE SARS-CoV-2 RNA (RT-PCR) NEGATIVE Imaging Radiologist's Impressions: Impressions Abdomen/Pelvis CT 05/28/24 07:50 IMPRESSION: 1. Colonic diverticulosis without CT evidence to suggest active diverticulitis. 2. Tiny bilateral nonobstructing renal calculi. No hydronephrosis. 3. Mild to moderate colonic stool burden. Fleischner guidelines were followed. Electronically signed by: Rolan Mota MD 05/28/2024 08:23 AM EDT RP Head CT 05/28/24 08:03 IMPRESSION: Chronic microvascular ischemic changes with no CT evidence of acute intracranial abnormality. Electronically signed by: Rolan Mota MD 05/28/2024 09:01 AM EDT RP Assessment and Plan (1) Hypercalcemia: Status: Acute (2) Abdominal pain: Status: Acute (3) Acute UTI: Status: Acute Plan Pt is a 79-year-old female with a PMH significant for?osteoporosis, unspecified cognitive impairment, hypercalcemia, vitamin-D deficiency, and hyperparathyroidism who presents to the ED from [facility] for evaluation nausea, headache, and abdominal pain since last night. Hypercalcemia secondary to hyperparathyroidism Patient's calcium 12.8 at time of presentation, similar to previous PTH elevated at 225.5 on 05/04 Received IVF in the ED Continue cinacalcet Follow BMP Will need follow up outpatient with endocrinology Acute UTI UA consistent with acute UTI No sepsis: No tachycardia, tachypnea, fever, or leukocytosis Will treat with ceftriaxone Follow urine cultures Nausea, vomiting, abdominal pain, resolved Patient initially presented with sudden onset symptoms at 04:[address] of abdomen/pelvis negative for acute abdomen Currently patient without acute medical complaints, abd exam benign Treat symptomatically Constipation CT showing [id number] colonic stool burden Patient reports had bowel movement last night We will give MiraLax, Colace Generalized weakness Reports not eating well, recent weight loss Hx of falls at home, recently out of STR on 05/11 PT evaluation Unspecified cognitive impairment AOx3, but not to situation and with significant short term memory deficits OT eval for MoCA Vitamin-D deficiency Continue cholecalciferol Full Code Attending:?Dr. Bearden DVT Prophylaxis: Lovenox The patient be admitted to the hospital under observation for treatment and further evaluation of generalized weakness in the setting of hypercalcemia and UTI. Quality Stroke Does the patient have a stroke diagnosis?: No VTE Prior VTE?: No VTE Risk Level:: Medical - moderate - high VTE Device Contraindication: Treatment Not Indicated VTE Drug Contraindication: N/A - Med Ordered
[2024-05-28 12:24] VITALS: BP 122/57; PULSE 65; RESP 18; TEMP 36.4; O2SAT 99
[2024-05-28] MEDS: Enoxaparin Sodium 40 MG/0.4 ML SYRINGE SUBCUT (12:54)
--- NOTE | 2024-05-28 13:23 | PHA.MEDREC ---
Pharmacy Consult ? Medication Reconciliation Pharmacy has completed the medication reconciliation. Per pharmacy and patient's son, cinacalcet is the only med she is on.
[2024-05-28] MEDS: Docusate Sodium 100 MG CAPSULE PO (14:13)
[2024-05-28] MEDS: polyethylene glycoL 3350 17 GM POWD.PACK PO (14:13)
[2024-05-28] MEDS: 0.9 % Sodium Chloride Flush 3 ML SYRINGE IVFLUSH (16:00)
[2024-05-28 18:55] VITALS: BP 152/66; PULSE 69; RESP 18; TEMP 36.5; O2SAT 100
[2024-05-28 19:55] VITALS: BP 133/61; PULSE 64; RESP 16; TEMP 36.7; O2SAT 98
[2024-05-28] MEDS: Acetaminophen 325 MG TABLET 650 MG PO (21:38)
--- NOTE | 2024-05-28 23:30 | PC.NURSE ---
Patient is alert and oriented x3, forgetful at times. VSS. Patient denies any pain. Patient ambulates independently with a steady gait. Patient requested and provided with a erickson ryan and sun butter and jelly sandwich, tolerated well, no complaints of nausea/vomiting/abdominal pain. Call sam in patient's reach, plan of care ongoing.
[2024-05-29] MEDS: 0.9 % Sodium Chloride Flush 3 ML SYRINGE IVFLUSH ×3 (00:11→20:30)
[2024-05-29 07:16] LABS: Anion Gap 9 (12-20); Blood Urea Nitrogen 5 mg/dL (9-16); Carbon Dioxide 27 mmol/L (22-29); Chloride 109 mmol/L (96-108); Creatinine Clr Calc Pharmacy 61.5; Estimated Glomerular Filt Rate > 60; Glucose Random 93 mg/dL (60-115); Potassium 4.2 mmol/L (3.3-5.1); Sodium 141 mmol/L (135-145)
[2024-05-29 07:28] LABS: Calcium 12.6 mg/dL (8.4-10.2)
--- NOTE | 2024-05-29 07:30 | PC.NURSE ---
Critical Calcium of 12.6. Constantin Bearden MD notified.
[2024-05-29 08:02] VITALS: BP 143/67; PULSE 71; RESP 18; TEMP 36.9; O2SAT 99
[2024-05-29] MEDS: 0.9 % Sodium Chloride 1,000 ML 100 ML IVCONT ×2 (09:03→19:56)
[2024-05-29] MEDS: Docusate Sodium 100 MG CAPSULE PO ×2 (09:07→20:29)
[2024-05-29] MEDS: cefTRIAXone sodium 1 GM in 0.9 % Sodium Chloride 50 ML IV (09:08)
[2024-05-29 10:27] VITALS: BP 148/67; PULSE 62; RESP 16; TEMP 36.6; O2SAT 100
[2024-05-29] MEDS: Cinacalcet HCl 30 MG TABLET 60 MG PO ×2 (10:50→20:29)
[2024-05-29 11:02] VITALS: BMI 19.6
[2024-05-29 12:28] VITALS: BMI 19.6
[2024-05-29] MEDS: Enoxaparin Sodium 40 MG/0.4 ML SYRINGE SUBCUT (12:42)
--- NOTE | 2024-05-29 12:42 | MHC.CLN ---
NUTRITION CONSULT FOR POOR APPETITE AND WEIGHT LOSS. DIET=REGULAR. PATIENT AGREES TO ENSURE BID. SUPPLEMENT PROVIDES 700 KCALS, 40 G PROTEIN. NO SIGNIFICANT WEIGHT LOSS X ONE YEAR. REPORTS THAT FAMILY/FRIENDS HAVE NOTICED WEIGHT LOSS TREND. BMI=19.6. RECENT POOR PO WITH UPPER GI SYMPTOMS. NUTRITION DX MODERATE MALNUTRITION IN THE CONTEXT OF CHRONIC ILLNESS. MILD TO MODERATE DEPLETION OF BODY FAT AND MUSCLE MASS NOTED. FOLLOW FOR PO INTAKE. ENCOURAGE INTAKE OF MEALS AND SUPPLEMENT. SEE CLINICAL NUTRITION ASSESSMENT 05/29/24.
--- NOTE | 2024-05-29 14:33 | HO.PM.IMPN ---
Subjective Subjective Date of Service: 05/29/24 Interval History: oriented grossly but has some short-term memory difficulties no abd pain no fever Review of Systems Review of Systems: Yes all other systems are reviewed and are negative Physical Exam Vital Signs: Vital Signs: Last Vital Signs Temp 97.8 F 05/29/24 10:27 Pulse 62 05/29/24 10:27 Resp 16 05/29/24 10:27 BP 148/67 H 05/29/24 10:27 Pulse Ox 100 05/29/24 10:27 O2 Del Method Room Air 05/29/24 10:27 BMI result Body Mass Index 19.6 Gen: in no acute distress HEENT: sclera anicteric, moist mucus membranes Neck: supple Lungs: clear to auscultation bilaterally Heart: regular rate and rhythm, no murmurs Abd: soft, non-tender, non-distended Ext: no edema Skin: warm/well-perfused Neuro: alert and oriented x3, no focal findings Psych: appropriate affect Objective Data Active Medications Acetaminophen (Acetaminophen 325 Mg Tablet) 650 mg PO Q6H PRN PRN Reason: Pain, Mild (Pain Scale 1-3), fever or headache Last Admin: 05/28/24 21:38 Dose: 650 mg Documented By: MOIZ Benzonatate (Benzonatate 100 Mg Capsule) 100 mg PO TID PRN PRN Reason: Cough Calcium Carbonate (Calcium Carbonate 750 Mg Tab.Chew) 750 mg PO Q4H PRN PRN Reason: Heartburn Cinacalcet (Cinacalcet Hcl 30 Mg Tablet) 60 mg PO BID ON LICENSE OF [facility] Last Admin: 05/29/24 10:50 Dose: 60 mg Documented By: YOLIE Docusate Sodium (Docusate Sodium 100 Mg Capsule) 100 mg PO BID ON LICENSE OF [facility] Stop: 05/30/24 13:09 Last Admin: 05/29/24 09:07 Dose: 100 mg Documented By: MERCEDEZ Enoxaparin Sodium (Enoxaparin Sodium 40 Mg/0.4 Ml Syringe) 40 mg SUBCUT Q24H ON LICENSE OF [facility] Last Admin: 05/29/24 12:42 Dose: 40 mg Documented By: YOLIE Ceftriaxone Sodium 1 gm/ (Sodium Chloride) 50 mls @ 100 mls/hr IV Q24H ON LICENSE OF [facility] Last Infusion: 05/29/24 10:32 Dose: Infused Documented By: YOLIE Sodium Chloride (Ns) 1,000 mls @ 100 mls/hr IVCONT .Q10H ON LICENSE OF [facility] Last Admin: 05/29/24 09:03 Dose: 100 mls/hr Documented By: MERCEDEZ Magnesium Hydroxide (Milk Of Magnesia 30 Ml Oral.Susp) 30 ml PO DAILY PRN PRN Reason: Constipation Melatonin (Melatonin 3 Mg Tablet) 6 mg PO BEDTIME PRN PRN Reason: Insomnia Ondansetron HCl (Ondansetron Hcl 4 Mg/2 Ml Vial) 4 mg IVPUSH Q8H PRN PRN Reason: Nausea and Vomiting Sodium Chloride (0.9 % Sodium Chloride Flush 3 Ml Syringe) 3 ml IVFLUSH QSHIFT ON LICENSE OF [facility] Last Admin: 05/29/24 08:59 Dose: 3 ml Documented By: MERCEDEZ Labs 05/28/24 08:10 05/29/24 06:13 Labs: Laboratory Results - last 24 hr 05/29/24 06:13 Anion Gap 9 L Estim Creat Clear Calc 61.5 Estimated GFR > 60 Random Glucose 93 Calcium 12.6 H* Microbiology Microbiology Results: Microbiology 05/28/24 09:34 Urine Culture - Preliminary Urine clean catch - Clean Catch Midstream Gram negative joselo Assessment and Plan (1) Hypercalcemia: Status: Acute Plan d2 79yo F with osteoporosis, cognitive impairment, hyperCa, vit D deficiency, primary hyperPTH presenting from [facility] for nausea, HELLER, and abd pain, found to have moderate hyperCa hyperCa primary hyperPTH vit D deficiency - continue IV hydration + cinecalcet, outpt f/u with Endocrinology and possibly Endocrine Surgery UTI - ceftriaxone 05/28-, follow UCx N/V/abd pain constipation - resolved; possibly related to hyperCa? conitnue bowel regimen weakness cognitive impairment - PT/OT eval VTE ppx - enoxaparin dispo - PT/OT eval In my clinical judgment, the patient requires continued inpatient hospitalization for the following reasons: IV ABX, IV fluids Total time managing care of this patient today: 35 minutes. Quality Stroke Does the patient have a stroke diagnosis?: No VTE Prior VTE?: No VTE Risk Level:: Medical - moderate - high VTE Device Contraindication: Treatment Not Indicated VTE Drug Contraindication: N/A - Med Ordered
--- NOTE | 2024-05-29 15:48 | MHC.CM.PN ---
PT FROM [facility]DEP[facility]IV[facility] SHE HAD A VNA AND [facility] SON WAS UNSURE OF AGENCEY NAME PT HAD BEEN DCD FROM [facility] A FEW AGO SON WOULD BE AGREEABLE IF NEEDED FOR PT TO RETJURN TO [facility] DC PLAN TBD [facility] LOI W/ SERVICES VS STR AT [facility]
[2024-05-29 16:09] VITALS: BP 163/71; PULSE 66; RESP 18; TEMP 36.3; O2SAT 95
[2024-05-29 19:13] VITALS: BP 133/74; PULSE 74; RESP 17; TEMP 36.7; O2SAT 100
[2024-05-30 03:41] VITALS: BP 138/63; PULSE 63; RESP 18; TEMP 36.7; O2SAT 97
[2024-05-30] MEDS: 0.9 % Sodium Chloride 1,000 ML 100 ML IVCONT (05:15)
[2024-05-30 07:07] LABS: Parathyroid Hormone Intact 316.6 pg/mL (8.7-77.1)
[2024-05-30 07:14] LABS: Anion Gap 9 (12-20); Blood Urea Nitrogen 7 mg/dL (9-16); Calcium 10.9 mg/dL (8.4-10.2); Carbon Dioxide 23 mmol/L (22-29); Chloride 112 mmol/L (96-108); Creatinine Clr Calc Pharmacy 76.8; Estimated Glomerular Filt Rate > 60; Glucose Random 94 mg/dL (60-115); Potassium 3.9 mmol/L (3.3-5.1); Sodium 140 mmol/L (135-145)
[2024-05-30 08:00] VITALS: BP 147/66; PULSE 67; RESP 16; TEMP 36.7; O2SAT 100
[2024-05-30] MEDS: cefTRIAXone sodium 1 GM in 0.9 % Sodium Chloride 50 ML IV (08:44)
[2024-05-30] MEDS: Docusate Sodium 100 MG CAPSULE PO (08:47)
[2024-05-30] MEDS: Cinacalcet HCl 30 MG TABLET 60 MG PO (08:47)
--- NOTE | 2024-05-30 10:44 | MHC.CM.PN ---
Per MD rounds, patient medically cleared for dc home w/ resumption of [facility]NA services. [facility]. Transport home via shuttle at noon. RN and patient aware.
--- NOTE | 2024-05-30 11:38 | P.DS_ITS ---
DS: Providers Provider Date of Service: 05/30/24 Date of admission: 05/29/24 09:49 Date of discharge: 05/30/24 Primary care physician: Yuli Gray MD DS: Diagnosis Discharge Diagnosis (1) Hypercalcemia: Status: Acute (2) Acute UTI: Status: Acute (3) Cognitive impairment: Status: Acute (4) Primary hyperparathyroidism: Status: Acute DS: Summary Hospital Course Hospital Course: From the history and physical by the admitting hospitalist, FRANC Schofield, 05/28/24: Pt is a 79-year-old female with a PMH significant for?osteoporosis, unspecified cognitive impairment, hypercalcemia, vitamin-D deficiency, and hyperparathyroidism who presents to the ED from [facility] for evaluation nausea, headache, and abdominal pain since last night. Patient is a poor historian with significant short-term memory deficits, though she is alert and oriented to self, place, and time. Patient initially told EMS and ED provider she woke from sleeping at 04:00 with abdominal pain and nausea but no vomiting. Had large formed bowel movement yesterday. No diarrhea. However, at time of interview and exam for this provider, patient can not remember what brought her in. Stops and thinks for a moment and then states ?I think I fell in the kitchen due to weakness from not eating well. Currently has no acute medical complaints. Denies nausea, vomiting, abdominal pain. No chest pain/pressure, palpitations. No shortness a breath or difficulty breathing. Denies polyuria or dysuria. Spoke with pt's son states she has slowly been getting more forgetful and has been losing a weight lately due to not eating much. Recently had STR stay at [facility] but was discharged back to [facility] living on 05/11. In the ED pt was mildly hypertensive 50/70, vitals otherwise stable and WNL. Labs were significant for hypercalcemia of 12.8, otherwise grossly unremarkable. UA consistent with UTI. Tested negative for RSV, flu, COVID. CTA of head negative for acute intracranial abnormality, though showed chronic microvascular ischemic changes. CT of abdomen/pelvis negative for acute abdomen but showed colonic diverticulosis without active diverticulitis, tiny bilateral nonobstructing renal calculi, without hydronephrosis and [id number] colonic stool burden. EKG demonstrated normal sinus rhythm without evidence of significant ST elevations or depressions. Pt was treated with 2L IVF and cefuroxime 500 mg p.o.. Pt will be admitted to the hospital under observation for treatment and further observation of generalized weakness in the setting of hypercalcemia and UTI. 79yo F with osteoporosis, cognitive impairment, hyperCa, vit D deficiency, primary hyperPTH presenting from [facility] for nausea, HELLER, and abd pain and admitted for UTI and moderate hypercalcemia. Calcium came down to 10.9 with IV hydration. She will need outpatient follow up with Endocrinology a nd possibly Endocrine Surgery for management of primary hyperparathyroidism. Urine culture grew arteaga-sensitive E. coli and she was treated with ceftriaxone and discharged on cefuroxime. She was seen by PT and OT and VNA services were recommended along with increased level of supervision at her home. She was discharged home with VNA services. BMP should be repeated in 1 week. Time Attestation Discharge Coordination Time (in mins): 35 Quality: Safe Use of Opioids Does Pt have an Active Cancer Diagnosis on the Problem List?: No Quality: Stroke Does the patient have a stroke diagnosis?: No Physical Exam Vital Signs: Vital Signs: Last Vital Signs Temp 98.0 F 05/30/24 08:00 Pulse 67 05/30/24 08:00 Resp 16 05/30/24 08:00 BP 147/66 H 05/30/24 08:00 Pulse Ox 100 05/30/24 08:00 O2 Del Method Room Air 05/30/24 08:00 O2 Flow Rate 100 05/30/24 08:00 FiO2 100 05/30/24 08:00 BMI result Body Mass Index 19.6 Gen: in no acute distress HEENT: sclera anicteric, moist mucus membranes Neck: supple Lungs: clear to auscultation bilaterally Heart: regular rate and rhythm, no murmurs Abd: soft, non-tender, non-distended Ext: no edema Skin: warm/well-perfused Neuro: alert and oriented x3, no focal findings Psych: appropriate affect DS: Data Data Completed and Pending Completed studies during hospitalization [Text1]: Laboratory Results WBC 7.4 X10*3/uL (4.8-10.8) 05/28/24 08:10 RBC 4.08 X10*6/uL (4.20-5.50) L 05/28/24 08:10 Hgb 12.0 g/dl (12.0-16.0) 05/28/24 08:10 Hct 36.4 % (37.0-47.0) L 05/28/24 08:10 MCV 89.2 fL (80.0-98.0) 05/28/24 08:10 MCH 29.4 pg (27.0-33.0) 05/28/24 08:10 MCHC 33.0 g/dl (31.0-35.0) 05/28/24 08:10 RDW 13.2 % (11.0-16.0) 05/28/24 08:10 Plt Count 280 X10*3/uL (160-400) 05/28/24 08:10 MPV 9.4 fL (9.4-12.3) 05/28/24 08:10 Immature Gran % (Auto) 0.4 % (0.0-0.4) 05/28/24 08:10 Neut % (Auto) 74.5 % (45-73) H 05/28/24 08:10 Lymph % (Auto) 17.6 % (20-40) L 05/28/24 08:10 [place] % (Auto) 6.6 % (2-11) 05/28/24 08:10 Eos % (Auto) 0.5 % (0-4) 05/28/24 08:10 Baso % (Auto) 0.4 % (0-2) 05/28/24 08:10 Lymph # (Auto) 1.3 X10*3/uL (1.2-4.9) 05/28/24 08:10 [place] # (Auto) 0.5 X10*3/uL (0.1-1.2) 05/28/24 08:10 Eos # (Auto) 0.0 X10*3/uL (0.0-0.4) 05/28/24 08:10 Baso # (Auto) 0.0 X10*3/uL (0.0-0.2) 05/28/24 08:10 Abs Immat Gran (auto) 0.03 X10*3/uL (0.00-0.03) 05/28/24 08:10 Absolute Neuts (auto) 5.5 x10*3/uL (2.0-8.3) 05/28/24 08:10 Absolute Nucleated RBC 0.000 X10*3/uL (0.0-0.012) 05/28/24 08:10 Nucleated RBC % (auto) 0.0 /100WBC (0.0-0.2) 05/28/24 08:10 Sodium 140 mmol/L (135-145) 05/30/24 06:25 Potassium 3.9 mmol/L (3.3-5.1) 05/30/24 06:25 Chloride 112 mmol/L (96-108) H 05/30/24 06:25 Carbon Dioxide 23 mmol/L (22-29) 05/30/24 06:25 Anion Gap 9 (12-20) L 05/30/24 06:25 BUN 7 mg/dL (9-16) L 05/30/24 06:25 Creatinine 0.55 mg/dL (0.5-1.4) 05/30/24 06:25 Estim Creat Clear Calc 76.8 05/30/24 06:25 Estimated GFR > 60 05/30/24 06:25 Random Glucose 94 mg/dL (60-115) 05/30/24 06:25 Calcium 10.9 mg/dL (8.4-10.2) H D 05/30/24 06:25 Total Bilirubin 0.4 mg/dL (0.0-1.0) 05/28/24 08:10 Direct Bilirubin 0.2 mg/dL (0.0-0.5) 05/28/24 08:10 AST 21 U/L (5-31) 05/28/24 08:10 ALT 19 U/L (0-31) 05/28/24 08:10 Alkaline Phosphatase 119 U/L (39-117) H 05/28/24 08:10 Troponin I High Sens 10.8 ng/L (<3.5-17.0) D 05/28/24 08:10 Total Protein 7.4 g/dL (6.5-8.0) 05/28/24 08:10 Albumin 4.4 g/dL (3.5-5.0) 05/28/24 08:10 Lipase 20 U/L (8-78) 05/28/24 08:10 PTH Intact 316.6 pg/mL (8.7-77.1) H 05/30/24 06:25 Urine Color Yellow 05/28/24 07:56 Urine Appearance Cloudy 05/28/24 07:56 Urine pH 7.0 (5.0-9.0) 05/28/24 07:56 Ur Specific [place] 1.010 (1.005-1.025) 05/28/24 07:56 Urine Protein Negative mg/dL (Neg-Trace) 05/28/24 07:56 Urine Glucose (UA) Negative mg/dL (Negative) 05/28/24 07:56 Urine Ketones Negative mg/dL (Negative) 05/28/24 07:56 Urine Blood Negative (Negative) 05/28/24 07:56 Urine Nitrite Positive (Negative) H 05/28/24 07:56 Ur Leukocyte Esterase Large (3+) (Negative) H 05/28/24 07:56 Urine RBC 0-2 /HPF (0-2) 05/28/24 07:56 Urine WBC >50 /HPF (0-5) H 05/28/24 07:56 Ur Squamous Epith Cells 0-2 /HPF (0-2) 05/28/24 07:56 Urine Bacteria 4+ (None Seen) 05/28/24 07:56 Hyaline Casts 0-2 /LPF (0-2) 05/28/24 07:56 Influenza Type A (PCR) NEGATIVE (Negative) 05/28/24 09:00 Influenza Type B (PCR) NEGATIVE (Negative) 05/28/24 09:00 RSV RNA Qual (PCR) NEGATIVE (Negative) 05/28/24 09:00 SARS-CoV-2 RNA (RT-PCR) NEGATIVE (Negative) 05/28/24 09:00 Impressions Abdomen/Pelvis CT 05/28/24 07:50 IMPRESSION: 1. Colonic diverticulosis without CT evidence to suggest active diverticulitis. 2. Tiny bilateral nonobstructing renal calculi. No hydronephrosis. 3. Mild to moderate colonic stool burden. Fleischner guidelines were followed. Electronically signed by: Rolan Mota MD 05/28/2024 08:[address] 05/28/24 08:03 IMPRESSION: Chronic microvascular ischemic changes with no CT evidence of acute intracranial abnormality. Electronically signed by: Rolan Mota MD 05/28/2024 09:01 AM EDT RP Discharge Plan Discharge Anticipated Discharge Date/Time: 05/30/24 11:25 Patient Disposition: Home Health Service Discharge Diagnosis: hypercalcemia urinary tract infection cognitive impairment Referrals: [facility] Endocrinology [Provider Group] - 1 Week [facility] [Outside] - 3-5 Days (resume services) Yuli Vieira MD [Primary Care Provider] - Discharge Medications: New cefuroxime axetil 500 mg tablet 500 mg PO BID Qty: 14 0RF Continued cinacalcet 60 mg tablet 60 mg PO BID Discharge Orders: Discharge Order (Routine); Ordered 05/30/24 Ordered By: Cate Bearden Diet: Advance to usual diet Activity on Discharge: As tolerated Stand Alone Forms: Patient Portal Discharge page Print Language: Bhutanese Other Ambulatory Orders: Basic Metabolic Panel (Routine) Timeframe: 1 Week Facility: [facility] - Location: Laboratory Ordered By: Cate Bearden Care Plan Goals: manage high calcium cure UTI Health Concerns: hypercalcemia urinary tract infection Plan of Treatment: home with VNA services for PT drink plenty of fluid take cinecalcet as prescribed previously take cefuroxime 500 mg twice daily for 7 days repeat BMP in 1 week follow up with [facility] Endocrinology in 1 week Please follow up with your primary care doctor within 1 week. Return to the hospital if you experience recurrent or worsening symptoms. Assessment: See Discharge Summary. Patient Instructions: Urinary Tract Infection in Women (ED) Discharge Date/Time: 05/30/24 12:00
== END 2024-05-30 12:00 | disposition home health service (06) | DRG 690 ==
LOC: HO.ED 11:31 → HO.EDOVER 12:37 → HO.S3 05-29 09:12
PROVIDERS: Admitting Provider Student in an Organized Health Care Education/Training Program; Emergency Provider Emergency Medicine; PCP Internal Medicine; Visit Provider Family Medicine
DX: N39.0 Urinary tract infection, site not specified (principal); B96.20 Unspecified Escherichia coli [E. coli] as the cause of diseases classified elsewhere; E21.0 Primary hyperparathyroidism; K59.00 Constipation, unspecified; R41.9 Unspecified symptoms and signs involving cognitive functions and awareness; M81.0 Age-related osteoporosis without current pathological fracture; E55.9 Vitamin D deficiency, unspecified; Z20.822 Contact with and (suspected) exposure to COVID-19; Z87.891 Personal history of nicotine dependence; Z79.899 Other long term (current) drug therapy
CPT/HCPCS: 0241U; 36415; 70450; 74176; 80048; 80076; 81001; 83690; 83970; 84484; 85025; 87086; 87088; 87186; 93005; 97162; 97166; 99221; 99285; J0696; J1650

== ENCOUNTER → 2024-05-28 12:27 | Outpatient (BNV) | payer MEDICARE, MEDICAID, SELFPAY | PROVIDERS: Admitting Provider Student in an Organized Health Care Education/Training Program; Emergency Provider Emergency Medicine; PCP Internal Medicine; Visit Provider Student in an Organized Health Care Education/Training Program | DX: E83.52 Hypercalcemia (principal); N39.0 Urinary tract infection, site not specified; R41.89 Other symptoms and signs involving cognitive functions and awareness | CPT/HCPCS: 99222; 99232; 99239 ==

== ENCOUNTER 2024-06-01 10:00 | Emergency (ER) | payer MEDICARE, MEDICAID, SELFPAY ==
[2024-06-01] VITALS (8 sets, daily range): BP systolic 144–168; BP diastolic 71–95; PULSE 73–84; RESP 14–17; TEMP 36.2–36.9; O2SAT 96–98; BMI 17.2
--- NOTE | ~2024-06-01 | XR_ITS ---
EXAMINATION: XR CHEST CLINICAL INFORMATION: Lightheadedness. COMPARISON: Chest CT dated 04/11/2024. TECHNIQUE: Frontal view of the chest was obtained. FINDINGS: The lungs are clear. The cardiomediastinal silhouette is normal in size. There is no pleural effusion or pneumothorax. No acute osseous abnormality. XR/XR chest 1V IMPRESSION: No acute cardiopulmonary findings. Electronically signed by: Jamir Ko MD 06/01/2024 12:44 PM EDT
--- NOTE | 2024-06-01 10:40 | ECG_ITS ---
Test Reason : DIZZINESS Blood Pressure : / mmHG Vent. Rate : 070 BPM Atrial Rate : 070 BPM P-R Int : 142 ms QRS Dur : 076 ms QT Int : 382 ms P-R-T Axes : 057 -32 035 degrees QTc Int : 412 ms Normal sinus rhythm Left axis deviation Minimal voltage criteria for LVH, may be normal variant ( R in aVL ) Abnormal ECG When compared with ECG of 28-MAY-2024 08:15, No significant change was found Referred By: Irais Bejarano Electronically Signed By:AUNDREA DIEGO MD
--- NOTE | 2024-06-01 11:37 | ED.GENADULT ---
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 Patient was recently discharged from our facility on 05/30/2024 for hypercalcemia, UTI discharged on Ceftin, and primary hyperparathyroidism. Denies fever, chest pain/shortness of, abdominal pain, vomiting, diarrhea, dysuria/hematuria. Related Data Home Medications ?Medication ?Instructions ?Recorded ?Confirmed cinacalcet 60 mg tablet 60 mg PO BID 05/28/24 05/28/24 Previous Rx's ?Medication ?Instructions ?Recorded cefuroxime axetil 500 mg tablet 500 mg PO BID #14 tabs 05/28/24 Allergies Allergy/AdvReac Type Severity Reaction Status Date / Time елена Allergy Intermediate Rash Verified 06/01/24 10:30 Review of Systems Review of Systems: Yes all other systems are reviewed and are negative Constitutional: Constitutional: Reports as per HPI Neurologic: Denies Abnormal speech present [facility] Past Medical History Attestation statement: The following information was validated with the patient. Source: old records reviewed Medical History Numbness Skin lesion Abnormal EKG Chest pain Cognitive impairment Sinus pain Shoulder pain COVID-19 virus infection Lumbar pain Left shoulder pain Clavicle fracture Peripheral vascular disease Mass of left foot Headache Age related osteoporosis Renal calculi Encounter for Medicare annual wellness exam Left upper quadrant abdominal pain Positive Romberg test Loss of balance Osteoporosis Constipation by delayed colonic transit Anxiety Hearing loss Blurry vision Thyroid nodule Chest pain Cervical spondylosis with radiculopathy Cold extremities Skin rash Cervical radiculopathy due to degenerative joint disease of spine Degenerative disc disease, cervical Surgical History No pertinent past surgical history Family History Family History Father No problems noted. Mother Cancer Skin cancer Sister Skin cancer Sister Lung cancer Social History Social History Household Members: None Household Members Other:: pt states I live with 50 other women , vague Housing: Halfway Do you presently have visiting nurse or other home services: No Alcohol intake: current Alcohol intake frequency: does not drink Alcohol type: wine Comment: 1:1 sitter Patient Tobacco Use Status: Never used Tobacco Smoked in Last 30 Days: No e-Cigarette/Vaping Use: Never Used Second Hand Smoke Exposure: Yes Use of substances other than those prescribed or required for medical reasons: No Advance Directives: No Advance Directives Information Provided: Yes service: No Current occupational status: retired Cognitive needs: No Hearing needs: No Vision needs: No Physical Exam ED Vital Signs: Vital Signs - 24 hr 06/01/24 10:10 06/01/24 10:27 06/01/24 13:11 Temperature 97.2 F Pulse Rate 79 77 73 Respiratory Rate 14 16 Blood Pressure 148/71 H 148/71 H 152/81 H Pulse Oximetry 97 Oxygen Delivery Method Room Air Room Air 06/01/24 13:11 06/01/24 13:13 06/01/24 13:15 Temperature Pulse Rate 80 84 73 Respiratory Rate 16 Blood Pressure 166/91 H 168/90 H 152/81 H Pulse Oximetry 97 Oxygen Delivery Method Room Air 06/01/24 18:07 06/01/24 18:45 Temperature 98.4 F 98.4 F Pulse Rate 77 77 Respiratory Rate 17 17 Blood Pressure 149/95 H 149/95 H Pulse Oximetry 98 98 Oxygen Delivery Method Room Air Room Air BMI result Body Mass Index 17.2 Const Other: pleasantly confused (baseline memory deficit) General: cooperative and no acute distress Orientation/consciousness: oriented to person, oriented to place and oriented to time Limitations: no limitations HENMT Head: Yes normal to inspection and Yes atraumatic Ears: hearing grossly normal bilaterally General nose exam: Normal external nose present Face and sinus: Yes normal facial exam Eyes General: appearance normal, both eyes and all related structures EOM: EOMs intact bilaterally Neck Neck: Yes normal visual inspection and Yes no meningeal signs Resp Effort & Inspection: normal respiratory effort and no respiratory distress Auscultation: clear to auscultation bilaterally, no rhonchi and no wheezes Cardio Rate: regular rate Heart sounds: S1 normal heart sound present and S2 normal heart sound present GI Inspection: Yes normal to inspection Palpation (GI): Soft to palpation, nontender, no guarding and not rigid General: Yes no CVA tenderness Back/Spine/Pelvis Back: no CVA tenderness Skin Rashes: no rashes Wounds: no wounds Neuro General: oriented to person, oriented to place, oriented to time, tone normal, moves all extremities, no meningeal signs, no focal motor deficits and CN's II-XI intact bilaterally Cranial nerves: Yes CN's II-XII intact bilaterally Speech: No Abnormal speech present Motor exam (neuro): 5/5 motor strength present throughout and no tremor noted Extrem Other: Bilateral LE edema Course Course Course Narrative: -1214--no leukocytosis. H / H with noted drop from 12.0 to 10.8 > denies brbpr, melena, hematuria. > will obtain occult stool -calcium mildly elevated to 11.4 > will give gentle IVF -initial trio 7.2 > will obtain 3hr repeat -UA negative. Occult stool negative. -COVID-19 positive XR chest 1V IMPRESSION: No acute cardiopulmonary findings. -orthostatic vital signs negative -1619--2nd troponin without significant rise, mi unlikely > symptoms likely secondary to patient's COVID-19 status. Safe for discharge back to [facility] Results discussed with patient including worrisome signs and symptoms and strict return precautions, and when to return to the emergency department. They verbalized understanding and feel safe for discharge at this time. Medications Administered Discontinued Medications Generic Name Dose Route Start Last Admin Trade Name Freq PRN Reason Stop Dose Admin Sodium Chloride 500 mls @ 999 mls/hr 06/01/24 12:15 06/01/24 13:21 Ns IV 06/01/24 12:45 Infused .Q31M [place] Infusion Medical Decision Making Medical Decision Making [facility] Narrative: 79-year-old female with a PMH significant for?osteoporosis, unspecified cognitive impairment, hypercalcemia, vitamin-D deficiency, and hyperparathyroidism who presents to the ED from [facility] c/o lightheadedness/presyncope [employer] with generalized fatigue/weakness, and nausea. On exam vital signs stable, NAD, nontoxic appearing, A&O x3 however pleasantly confused/forgetful with baseline known cognitive impairment. Abdomen soft/nontender. Bilateral LE edema. Concern for ACS vs metabolic abnormalities vs infectious etiology. Lower suspicion for acute CVA Plan: EKG, labs, UA, CXR, viral studies Please refer to course for remaining clinical decision making, interpretation of labs/imaging results, and discussions with consultants and/or family members. Differential Diagnosis Differential Diagnoses: The differential diagnosis associated with the presentation includes As above Admission/Observation Consideration of admission/observation: Escalation of care including admission/observation considered Lab Data MDM Lab Attestation statement: I reviewed the patient's lab results. 06/01/24 11:46 06/01/24 11:46 Labs: Lab Results 06/01/24 06/01/24 06/01/24 Range/Units 11:46 12:07 13:08 WBC 5.3 (4.8-10.8) X10*3/uL RBC 3.66 L (4.20-5.50) X10*6/uL Hgb 10.8 L (12.0-16.0) g/dl Hct 32.8 L (37.0-47.0) % MCV 89.6 (80.0-98.0) fL MCH 29.5 (27.0-33.0) pg MCHC 32.9 (31.0-35.0) g/dl RDW 13.6 (11.0-16.0) % Plt Count 252 (160-400) X10*3/uL MPV 9.4 (9.4-12.3) fL Immature Gran % (Auto) 0.2 (0.0-0.4) % Neut % (Auto) 68.8 (45-73) % Lymph % (Auto) 22.9 (20-40) % [place] % (Auto) 6.4 (2-11) % Eos % (Auto) 1.3 (0-4) % Baso % (Auto) 0.4 (0-2) % Lymph # (Auto) 1.2 (1.2-4.9) X10*3/uL [place] # (Auto) 0.3 (0.1-1.2) X10*3/uL Eos # (Auto) 0.1 (0.0-0.4) X10*3/uL Baso # (Auto) 0.0 (0.0-0.2) X10*3/uL Abs Immat Gran (auto) 0.01 (0.00-0.03) X10*3/uL Absolute Neuts (auto) 3.7 (2.0-8.3) x10*3/uL Absolute Nucleated RBC 0.000 (0.0-0.012) X10*3/uL Nucleated RBC % (auto) 0.0 (0.0-0.2) /100WBC Sodium 140 (135-145) mmol/L Potassium 4.0 (3.3-5.1) mmol/L Chloride 105 (96-108) mmol/L Carbon Dioxide 29 (22-29) mmol/L Anion Gap 10 L (12-20) BUN 11 (9-16) mg/dL Creatinine 0.67 (0.5-1.4) mg/dL Estim Creat Clear Calc 55.3 Estimated GFR > 60 Random Glucose 100 (60-115) mg/dL Calcium 11.4 H (8.4-10.2) mg/dL Magnesium 2.6 (1.6-2.6) mg/dL Total Bilirubin 0.4 (0.0-1.0) mg/dL Direct Bilirubin 0.1 (0.0-0.5) mg/dL AST 24 (5-31) U/L ALT 17 (0-31) U/L Alkaline Phosphatase 105 (39-117) U/L Ammonia 35 (13-55) umol/L Troponin I High Sens 7.2 (<3.5-17.0) ng/L C-Reactive Protein 0.10 (< or = 0.50) mg/dL Total Protein 6.8 (6.5-8.0) g/dL Albumin 4.0 (3.5-5.0) g/dL Lipase 27 (8-78) U/L Urine Color Yellow Urine Appearance Turbid Urine pH 8.0 (5.0-9.0) Ur Specific [place] <= 1.005 (1.005-1.025) Urine Protein Negative (Neg-Trace) mg/dL Urine Glucose (UA) Negative (Negative) mg/dL Urine Ketones Negative (Negative) mg/dL Urine Blood Negative (Negative) Urine Nitrite Negative (Negative) Ur Leukocyte Esterase Trace H (Negative) Urine RBC 0-2 (0-2) /HPF Urine WBC 0-5 (0-5) /HPF Ur Squamous Epith Cells 0-2 (0-2) /HPF Urine Bacteria None Seen (None Seen) Hyaline Casts 0-2 (0-2) /LPF Stool Occult Blood NEGATIVE (NEGATIVE) Influenza Type A (PCR) NEGATIVE (Negative) Influenza Type B (PCR) NEGATIVE (Negative) RSV RNA Qual (PCR) NEGATIVE (Negative) SARS-CoV-2 RNA (RT-PCR) POSITIVE A (Negative) 06/01/24 Range/Units 15:31 WBC (4.8-10.8) X10*3/uL RBC (4.20-5.50) X10*6/uL Hgb (12.0-16.0) g/dl Hct (37.0-47.0) % MCV (80.0-98.0) fL MCH (27.0-33.0) pg MCHC (31.0-35.0) g/dl RDW (11.0-16.0) % Plt Count (160-400) X10*3/uL MPV (9.4-12.3) fL Immature Gran % (Auto) (0.0-0.4) % Neut % (Auto) (45-73) % Lymph % (Auto) (20-40) % [place] % (Auto) (2-11) % Eos % (Auto) (0-4) % Baso % (Auto) (0-2) % Lymph # (Auto) (1.2-4.9) X10*3/uL [place] # (Auto) (0.1-1.2) X10*3/uL Eos # (Auto) (0.0-0.4) X10*3/uL Baso # (Auto) (0.0-0.2) X10*3/uL Abs Immat Gran (auto) (0.00-0.03) X10*3/uL Absolute Neuts (auto) (2.0-8.3) x10*3/uL Absolute Nucleated RBC (0.0-0.012) X10*3/uL Nucleated RBC % (auto) (0.0-0.2) /100WBC Sodium (135-145) mmol/L Potassium (3.3-5.1) mmol/L Chloride (96-108) mmol/L Carbon Dioxide (22-29) mmol/L Anion Gap (12-20) BUN (9-16) mg/dL Creatinine (0.5-1.4) mg/dL Estim Creat Clear Calc Estimated GFR Random Glucose (60-115) mg/dL Calcium (8.4-10.2) mg/dL Magnesium (1.6-2.6) mg/dL Total Bilirubin (0.0-1.0) mg/dL Direct Bilirubin (0.0-0.5) mg/dL AST (5-31) U/L ALT (0-31) U/L Alkaline Phosphatase (39-117) U/L Ammonia (13-55) umol/L Troponin I High Sens 8.7 (<3.5-17.0) ng/L C-Reactive Protein (< or = 0.50) mg/dL Total Protein (6.5-8.0) g/dL Albumin (3.5-5.0) g/dL Lipase (8-78) U/L Urine Color Urine Appearance Urine pH (5.0-9.0) Ur Specific [place] (1.005-1.025) Urine Protein (Neg-Trace) mg/dL Urine Glucose (UA) (Negative) mg/dL Urine Ketones (Negative) mg/dL Urine Blood (Negative) Urine Nitrite (Negative) Ur Leukocyte Esterase (Negative) Urine RBC (0-2) /HPF Urine WBC (0-5) /HPF Ur Squamous Epith Cells (0-2) /HPF Urine Bacteria (None Seen) Hyaline Casts (0-2) /LPF Stool Occult Blood (NEGATIVE) Influenza Type A (PCR) (Negative) Influenza Type B (PCR) (Negative) RSV RNA Qual (PCR) (Negative) SARS-CoV-2 RNA (RT-PCR) (Negative) Independent Interpretation I performed an independent interpretation of an: EKG (My interpretation EKG normal sinus rhythm rate of 70. Pr interval 142. QTC 412. No STEMI) and Plain X-Ray Radiology Impression Discussion of test interpretation with radiology: I have reviewed the radiologist's reading. External Record Review External record reviewed: Inpatient record, Office record, Outpatient record, Prior outpatient labs, Prior outpatient radiology, Primary care record and Outside ED record Tests considered The following testing was considered but not selected: As above Prescription Management I considered prescription management with: Antibiotic Chronic Conditions Patient?s care impacted by: Other Discharge Plan Discharge Clinical Impression: COVID-19 Patient Disposition: Home, Self-Care Instructions: COVID-19 (Coronavirus Disease 2019) (ED) Additional Instructions: YOU HAVE COVID-19 At this time you will be okay for discharge. Please self isolate for 5 days. Do not expose yourself to others. You may not go to work or school. Please continue to follow cold instructions and wash your hands frequently. You may take Tylenol / Motrin as directed on the bottle for pain or fever. If you have constant or persistent shortness of breath, fever unresolved with medications, chest pain, or your unable to eat or drink please return to the ED CDC Guidelines for home isolation: - Stay away from others - WEAR A MASK if you are sick AND STAY HOME - Cover your mouth and nose with a tissue when you cough or sneeze. Dispose of tissues in a lined trash can and wash your hands immediately with soap and water for at least 20 seconds. If soap and water are not available, clean hands with alcohol-based hand livestock inspector that contains at least 60% alcohol. - Clean your hands often with soap and water for at least 20 seconds - Avoid touching your eyes, nose and mouth with unwashed hands - Do not share dishes, drinking glasses, cups, eating utensils, towels, or bedding with other people in your home. After using these items, wash them thoroughly with soap and water or put in the top screw. - Clean high-touch surfaces in your isolation area ( sick room and bathroom) every day; let a caregiver clean and disinfect high-touch surfaces in other areas of the home. Clean the area or item with soap and water or another detergent if it is dirty. Then, use a household disinfectant. - Limit contact with pets and animals: If you must care for a pet, wash your hands before and after interacting with them) Prescriptions: No Action cefuroxime axetil 500 mg tablet 500 mg PO BID Qty: 14 0RF cinacalcet 60 mg tablet 60 mg PO BID Referrals: Yuli Vieira MD [Primary Care Provider] - 1 week Interventions: ED Discharge Assessment Last Done: 06/01/24 18:45 Discharge Date/Time: 06/01/24 18:46 Print Language: [place]
[2024-06-01 11:52] LABS: MANUAL DIFF FLAG NO
[2024-06-01 11:53] LABS: Basophils Percent Auto 0.4 % (0-2); Eosinophils Absolute Auto 0.1 X10*3/uL (0.0-0.4); Eosinophils Percent Auto 1.3 % (0-4); Hematocrit 32.8 % (37.0-47.0); Hemoglobin 10.8 g/dl (12.0-16.0); Imm Gran Abs Auto 0.01 X10*3/uL (0.00-0.03); Imm Gran Pct Auto 0.2 % (0.0-0.4); Lymphocytes Absolute Auto 1.2 X10*3/uL (1.2-4.9); Lymphocytes Percent Auto 22.9 % (20-40); Mean Corpuscular HGB Conc 32.9 g/dl (31.0-35.0); Mean Corpuscular Hemoglobin 29.5 pg (27.0-33.0); Mean Corpuscular Volume 89.6 fL (80.0-98.0); Mean Platelet Volume 9.4 fL (9.4-12.3); Monocytes Absolute Auto 0.3 X10*3/uL (0.1-1.2); Monocytes Percent Auto 6.4 % (2-11); Neutrophils Absolute Auto 3.7 x10*3/uL (2.0-8.3); Neutrophils Percent Auto 68.8 % (45-73); Platelet Count 252 X10*3/uL (160-400); Red Blood Count 3.66 X10*6/uL (4.20-5.50); Red Cell Distribution Width 13.6 % (11.0-16.0); White Blood Count 5.3 X10*3/uL (4.8-10.8)
[2024-06-01 12:01] LABS: Ammonia 35 umol/L (13-55)
[2024-06-01 12:11] LABS: Alanine Aminotransferase 17 U/L (0-31); Alkaline Phosphatase 105 U/L (39-117); Anion Gap 10 (12-20); Aspartate Amino Transferase 24 U/L (5-31); Bilirubin Direct 0.1 mg/dL (0.0-0.5); Bilirubin Total 0.4 mg/dL (0.0-1.0); Blood Urea Nitrogen 11 mg/dL (9-16); Calcium 11.4 mg/dL (8.4-10.2); Carbon Dioxide 29 mmol/L (22-29); Chloride 105 mmol/L (96-108); Creatinine Clr Calc Pharmacy 55.3; Estimated Glomerular Filt Rate > 60; Glucose Random 100 mg/dL (60-115); Lipase 27 U/L (8-78); Magnesium 2.6 mg/dL (1.6-2.6); Sodium 140 mmol/L (135-145); Total Protein 6.8 g/dL (6.5-8.0)
[2024-06-01 12:17] LABS: Appearance Urine Turbid; Color Urine Yellow; Glucose Urine UA Negative (Negative); Leukocyte Esterase Urine Trace (Negative); Nitrite Urine Negative (Negative); Specific Gravity - Urine <= 1.005 (1.005-1.025); UMIC TRIGGER UACC YES; Urine Blood Negative (Negative); Urine Ketones Negative (Negative); Urine Protein Negative (Neg-Trace)
[2024-06-01 12:18] LABS: Troponin-I High Sensitivity 7.2 ng/L (<3.5-17.0)
[2024-06-01 12:22] LABS: Bacteria Urine None Seen (None Seen); Hyaline Casts Urine 0-2 /LPF (0-2); RBC Urine 0-2 /HPF (0-2); Squamous Epithelial Cell Urine 0-2 /HPF (0-2); WBC Urine 0-5 /HPF (0-5)
[2024-06-01] MEDS: 0.9 % Sodium Chloride 500 ML 999 ML IV (12:41)
[2024-06-01 13:14] LABS: OBS Int Ctl Valid YES; OBS1 NEGATIVE (NEGATIVE)
[2024-06-01 13:24] LABS: Influenza A PCR NEGATIVE (Negative); Influenza B PCR NEGATIVE (Negative); Resp Syncy Virus RNA Qual PCR NEGATIVE (Negative); SARS COV2 PCR INHOUSE POSITIVE (Negative)
[2024-06-01 16:04] LABS: Troponin-I High Sensitivity 8.7 ng/L (<3.5-17.0)
== END 2024-06-01 18:46 | disposition home or self-care (01) ==
PROVIDERS: Physician Assistant; Emergency Provider Emergency Medicine; PCP Internal Medicine
DX: U07.1 COVID-19 (principal); R53.1 Weakness; R11.2 Nausea with vomiting, unspecified; Z79.899 Other long term (current) drug therapy
CPT/HCPCS: 0241U; 36415; 71045; 80048; 80076; 81001; 82140; 82272; 83690; 83735; 84484; 85025; 86140; 93005; 99285

== ENCOUNTER → 2024-06-01 10:40 | Outpatient (BNV) | payer MEDICARE, MEDICAID, SELFPAY | PROVIDERS: Emergency Provider Emergency Medicine; PCP Internal Medicine; Visit Provider Internal Medicine Cardiovascular Disease | DX: R94.31 Abnormal electrocardiogram [ECG] [EKG] (principal) | CPT/HCPCS: 93010 ==

== ENCOUNTER 2024-06-04 12:52 | Inpatient (IN) | payer MEDICARE, MEDICAID, SELFPAY ==
--- NOTE | ~2024-06-04 | CT_ITS ---
EXAMINATION: CT HEAD WITHOUT CONTRAST CLINICAL INFORMATION: Headache and dizziness 4 weeks. COMPARISON: May 28, 2024 and March 04, 2018. TECHNIQUE: Contiguous axial imaging was performed from the skull base to vertex without intravenous administration of contrast. This CT examination was performed using dose optimization techniques as appropriate, variously including the following: *Automated exposure control *Adjustment of mA and/or kV according to patient size (this includes techniques or standardized protocols for targeted exams where dose is matched to indication/reason for exam; i.e. extremities or head) *Use of iterative reconstruction technique DLP: 599 mGy-cm FINDINGS: No intracranial hemorrhage, large infarction, or mass lesion is seen. Mild, diffuse, age-appropriate cortical atrophy and chronic periventricular white matter ischemic change. No extra-axial collection is appreciated. The ventricles are normal in size and configuration without evidence of hydrocephalus. The visualized paranasal sinuses and mastoid air cells are clear. CT/CT head/brain wo IV con IMPRESSION: No acute intracranial finding. Electronically signed by: Gal Kan MD 06/04/2024 02:48 PM EDT
[2024-06-04 13:16] VITALS: BP 130/64; PULSE 92; RESP 18; TEMP 36.3; O2SAT 99; BMI 16.7
--- NOTE | 2024-06-04 13:21 | ECG_ITS ---
Test Reason : WEAKNESS Blood Pressure : / mmHG Vent. Rate : 080 BPM Atrial Rate : 080 BPM P-R Int : 146 ms QRS Dur : 072 ms QT Int : 352 ms P-R-T Axes : 067 -38 037 degrees QTc Int : 405 ms Normal sinus rhythm Possible Left atrial enlargement Left axis deviation Minimal voltage criteria for LVH, may be normal variant ( R in aVL ) Abnormal ECG When compared with ECG of 01-JUN-2024 10:54, No significant change was found Referred By: Gutierrez Cuevas Electronically Signed By:JORDY NICHOLSON
--- NOTE | 2024-06-04 13:23 | ED.GENADULT ---
HPI - General Adult General Chief complaint: Weakness Stated complaint: weakness-vomiting Time Seen by Provider: 06/04/24 16:25 Source: patient, family (Patient's son, Antonio) and RN notes reviewed Mode of arrival: EMS Limitations: other (Poor historian) History of Present Illness HPI narrative: 79-year-old female presents for syncopal episode. She is a poor historian, pleasantly confused due to documented memory loss. She says that she may have fainted earlier today. Says that she woke up on the ground and says ?I must have hit my head?. She has no head or neck pain, no dizziness, intact awareness. Denies visual disturbance or bleed. She denies fever chills chest pain palpitations, shortness of breath or cough. Denies urinary symptoms or other systemic symptoms. She was admitted from the to the 30 of May following a similar episode, was treated for UTI with cefuroxime. Per patient's son, she has not picked up antibiotic script, per pharmacy record she filled the prescription. She was also seen on the and was diagnosed with COVID-19. She was negative for COVID flu and RSV today. She endorses chronic weakness no acute change today. She has chronic hypercalcemia due to hyperparathyroidism, her baseline calcium is between 12-13. I spoke to the patient's son, Lindsey via telephone. He reports that his mother does not eat or drink anything all day. He does not feel that she is safe independent living is requesting a higher level of care. She was referred to outpatient endocrinology but is not yet had any appointment set up. Relieving factors: none Exacerbating factors: none Associated symptoms: denies other symptoms Treatments prior to arrival: none Related Data Home Medications ?Medication ?Instructions ?Recorded ?Confirmed cinacalcet 60 mg tablet 60 mg PO BID 05/28/24 05/28/24 Previous Rx's ?Medication ?Instructions ?Recorded cefuroxime axetil 500 mg tablet 500 mg PO BID #14 tabs 05/28/24 Allergies Allergy/AdvReac Type Severity Reaction Status Date / Time елена Allergy Intermediate Rash Verified 06/04/24 13:20 Review of Systems Constitutional: Constitutional: Reports as per HPI, Denies chills, Denies fatigue, Denies fever(s) and Denies headache(s) Eyes: Eyes: Denies blurry vision, Denies change in vision, Denies diplopia and Denies loss of vision ENT: Denies dizziness and Denies headache(s) Cardiovascular: Cardiovascular: Denies chest pain, Reports syncope and Denies dyspnea Respiratory: Respiratory: Denies cough and Denies dyspnea Gastrointestinal: Gastrointestinal: Denies abdominal pain, Denies constipation and Denies vomiting Genitourinary: Genitourinary: Denies dysuria, Denies urinary hesitancy and Denies urinary urgency Musculoskeletal: Musculoskeletal: Reports no additional musculoskeletal complaints, Denies numbness and Denies tingling Neurologic: Reports confusion, Denies dizziness, Reports syncope, Denies headache(s), Denies focal weakness, Denies loss of vision, Reports memory loss, Denies numbness and Denies tingling Psychiatric: Psychiatric: Reports confusion and Reports memory loss Endocrine: Endocrine: Denies fatigue PMFSH Past Medical History Medical History Numbness Skin lesion Abnormal EKG Chest pain Cognitive impairment Sinus pain Shoulder pain COVID-19 virus infection Lumbar pain Left shoulder pain Clavicle fracture Peripheral vascular disease Mass of left foot Headache Age related osteoporosis Renal calculi Encounter for Medicare annual wellness exam Left upper quadrant abdominal pain Positive Romberg test Loss of balance Osteoporosis Constipation by delayed colonic transit Anxiety Hearing loss Blurry vision Thyroid nodule Chest pain Cervical spondylosis with radiculopathy Cold extremities Skin rash Cervical radiculopathy due to degenerative joint disease of spine Degenerative disc disease, cervical Surgical History No pertinent past surgical history Family History Family History Father No problems noted. Mother Cancer Skin cancer Sister Skin cancer Sister Lung cancer Social History Social History Household Members: None Household Members Other:: pt states I live with 50 other women , vague Housing: Custodial Do you presently have visiting nurse or other home services: No Alcohol intake: current Alcohol intake frequency: does not drink Alcohol type: wine Comment: 1:1 sitter Patient Tobacco Use Status: Never used Tobacco e-Cigarette/Vaping Use: Never Used Second Hand Smoke Exposure: Yes Advance Directives: Yes Advance Directives Information Provided: Yes Advance Directives on File: No Do you have a plan to hurt others: No Plan service: No Current occupational status: retired Cognitive needs: No Hearing needs: No Vision needs: No Physical Exam ED Vital Signs: Vital Signs - 24 hr 06/04/24 13:16 06/04/24 16:26 06/04/24 17:46 Temperature 97.4 F 98.3 F Pulse Rate 92 74 69 Respiratory Rate 18 14 Blood Pressure 130/64 162/73 H 156/74 H Pulse Oximetry 99 98 Oxygen Delivery Method Room Air Room Air 06/04/24 17:47 06/04/24 17:51 06/04/24 19:41 Temperature 97.7 F Pulse Rate 71 106 H 69 Respiratory Rate 18 Blood Pressure 156/72 H 172/82 H 173/75 H Pulse Oximetry 100 Oxygen Delivery Method Room Air BMI result Body Mass Index 16.7 Const General: confusion Nutritional Appearance: well nourished Orientation/consciousness: patient oriented x3 and confusion HENMT Head: Yes normocephalic and Yes atraumatic Throat: Yes posterior oropharynx normal Eyes Eyelids: Yes eyelids normal Conjunctivae: conjunctivae normal Sclerae: sclerae normal Corneas: corneas normal Pupils: Equal, round and reactive pupils present EOM: EOMs intact bilaterally Neck Neck: Yes full ROM Resp Effort & Inspection: normal respiratory effort, able to speak in complete sentences, no audible wheezes and not labored Auscultation: clear to auscultation bilaterally Cardio Rate: regular rate Rhythm: regular rhythm GI Inspection: No distended Palpation (GI): Soft to palpation, not firm, nontender, no guarding and not rigid Auscultation: normoactive bowel sounds Skin General skin exam: no rashes or lesions noted and elasticity normal Neuro Other: Has impaired short term memory during interview, full alert. General: patient oriented x3, moves all extremities, Normal light touch and pain sensation, no focal motor deficits and confusion Cranial nerves: Yes CN's II-XII intact bilaterally, Yes Equal, round and reactive pupils present, Yes Normal accommodation reflex present, Yes Bilaterally intact EOM present, Yes Nystagmus not present, Yes Normal facial strength present and Yes Ability to bilaterally elevate shoulders present Cognition (Neuro): abnormal cognition Extrem Other: Moving all extremities well without any obvious deformities Course Course Course Narrative: rme: DONE BY FRANC Cuevas. 79-year-old female presents to the ED for a couple weeks of generalized weakness, dizziness, headache, decreased appetite, and fatigue. NIH score is 0. No focal finding on physical exam. Labs EKG UA ordered. Reevaluation(s) Reevaluation #1: There is some confusion as to whether or not the patient picked up her recent antibiotics on 05/28/2024. They are listed in the pharmacy as filled, but family states that they are the ones the pickler helper her prescriptions and they did not pick them up. The patient has greater than 50 white cells in the urine but no longer any bacteria. I did give a 1 time dose of ceftriaxone IV. Time: 20:55 Reevaluation #2: Patient's repeat calcium decreased from 14.0-13.4 after 2 L IV fluids. Given this is only a small decreased, she was given a 1 time dose of IV pamidronate, 60 mg IV. I discussed with the hospitalist who will admit the patient Time: 21:08 Medications Administered Discontinued Medications Generic Name Dose Route Start Last Admin Trade Name Freq PRN Reason Stop Dose Admin Sodium Chloride 1,000 mls @ 999 mls/hr 06/04/24 17:00 06/04/24 17:24 Ns IV 06/04/24 18:00 999 mls/hr .Q1H1M [facility] Administration Medical Decision Making Medical Decision Making [facility] Narrative: 79-year-old female presents for evaluation of weakness, possible syncopal episode. I reviewed her recent ER visit as well as her recent admission from 05/28 to 05/30. The patient's hyperparathyroidism and hypercalcemia our plan to be worked up as an outpatient. We will treat with IV fluids currently. The patient's family does not feel the patient is safe to be discharged home to independent living by herself. This is her 3rd ER visit in 1 week. We will recheck her calcium after IV fluids and assess admission versus a case management hold. The patient did have an echocardiogram in March of this year showing an ejection fraction of greater than 70% with mild diastolic dysfunction. She had abdominal pelvic CT scan within the last week that shows no acute pathology. Differential Diagnosis Differential Diagnoses: The differential diagnosis associated with the presentation includes Admission/Observation Consideration of admission/observation: Escalation of care including admission/observation considered Consult Healthcare Provider Management of the patient was discussed with: Hospitalist Lab Data [facility] Lab Attestation statement: I reviewed the patient's lab results. There was no leukocytosis. The patient does have a mild anemia consistent with a baseline. Normal platelet count. Patient's sodium, potassium and chloride are within normal limits, her calcium is elevated to 14.0 with a corrected calcium of 13.7. Renal function is within normal limits. 06/04/24 13:52 06/04/24 13:52 Labs: Lab Results 06/04/24 06/04/24 06/04/24 Range/Units 13:52 13:53 18:20 WBC 6.6 (4.8-10.8) X10*3/uL RBC 4.02 L (4.20-5.50) X10*6/uL Hgb 11.8 L (12.0-16.0) g/dl Hct 36.1 L (37.0-47.0) % MCV 89.8 (80.0-98.0) fL MCH 29.4 (27.0-33.0) pg MCHC 32.7 (31.0-35.0) g/dl RDW 13.6 (11.0-16.0) % Plt Count 287 (160-400) X10*3/uL MPV 9.1 L (9.4-12.3) fL Immature Gran % (Auto) 0.3 (0.0-0.4) % Neut % (Auto) 70.7 (45-73) % Lymph % (Auto) 21.5 (20-40) % [place] % (Auto) 6.4 (2-11) % Eos % (Auto) 0.8 (0-4) % Baso % (Auto) 0.3 (0-2) % Lymph # (Auto) 1.4 (1.2-4.9) X10*3/uL [place] # (Auto) 0.4 (0.1-1.2) X10*3/uL Eos # (Auto) 0.1 (0.0-0.4) X10*3/uL Baso # (Auto) 0.0 (0.0-0.2) X10*3/uL Abs Immat Gran (auto) 0.02 (0.00-0.03) X10*3/uL Absolute Neuts (auto) 4.6 (2.0-8.3) x10*3/uL Absolute Nucleated RBC 0.000 (0.0-0.012) X10*3/uL Nucleated RBC % (auto) 0.0 (0.0-0.2) /100WBC PT 10.6 L (10.9-12.4) SEC INR 0.9 (0.9-1.1) APTT 32.8 (26.0-36.8) SEC Sodium 142 (135-145) mmol/L Potassium 3.8 (3.3-5.1) mmol/L Chloride 100 (96-108) mmol/L Carbon Dioxide 31 H (22-29) mmol/L Anion Gap 15 (12-20) BUN 14 (9-16) mg/dL Creatinine 0.72 (0.5-1.4) mg/dL Estim Creat Clear Calc 51.5 Estimated GFR > 60 Random Glucose 99 (60-115) mg/dL Calcium 14.0 H* D (8.4-10.2) mg/dL Phosphorus (2.7-4.5) mg/dL Magnesium (1.6-2.6) mg/dL Total Bilirubin 0.5 (0.0-1.0) mg/dL AST 24 (5-31) U/L ALT 20 (0-31) U/L Alkaline Phosphatase 113 (39-117) U/L Troponin I High Sens 7.5 (<3.5-17.0) ng/L Total Protein 7.3 (6.5-8.0) g/dL Albumin 4.4 (3.5-5.0) g/dL Urine Color Yellow Urine Appearance Cloudy Urine pH 7.0 (5.0-9.0) Ur Specific [place] 1.010 (1.005-1.025) Urine Protein Negative (Neg-Trace) mg/dL Urine Glucose (UA) Negative (Negative) mg/dL Urine Ketones Negative (Negative) mg/dL Urine Blood Negative (Negative) Urine Nitrite Negative (Negative) Ur Leukocyte Esterase Large (3+) H (Negative) Urine RBC 0-2 (0-2) /HPF Urine WBC >50 H (0-5) /HPF Ur Squamous Epith Cells 3-5 (0-2) /HPF Urine Bacteria None Seen (None Seen) Hyaline Casts 0-2 (0-2) /LPF Influenza Type A (PCR) NEGATIVE (Negative) Influenza Type B (PCR) NEGATIVE (Negative) RSV RNA Qual (PCR) NEGATIVE (Negative) SARS-CoV-2 RNA (RT-PCR) NEGATIVE (Negative) 06/04/24 Range/Units 20:05 WBC (4.8-10.8) X10*3/uL RBC (4.20-5.50) X10*6/uL Hgb (12.0-16.0) g/dl Hct (37.0-47.0) % MCV (80.0-98.0) fL MCH (27.0-33.0) pg MCHC (31.0-35.0) g/dl RDW (11.0-16.0) % Plt Count (160-400) X10*3/uL MPV (9.4-12.3) fL Immature Gran % (Auto) (0.0-0.4) % Neut % (Auto) (45-73) % Lymph % (Auto) (20-40) % [place] % (Auto) (2-11) % Eos % (Auto) (0-4) % Baso % (Auto) (0-2) % Lymph # (Auto) (1.2-4.9) X10*3/uL [place] # (Auto) (0.1-1.2) X10*3/uL Eos # (Auto) (0.0-0.4) X10*3/uL Baso # (Auto) (0.0-0.2) X10*3/uL Abs Immat Gran (auto) (0.00-0.03) X10*3/uL Absolute Neuts (auto) (2.0-8.3) x10*3/uL Absolute Nucleated RBC (0.0-0.012) X10*3/uL Nucleated RBC % (auto) (0.0-0.2) /100WBC PT (10.9-12.4) SEC INR (0.9-1.1) APTT (26.0-36.8) SEC Sodium (135-145) mmol/L Potassium (3.3-5.1) mmol/L Chloride (96-108) mmol/L Carbon Dioxide (22-29) mmol/L Anion Gap (12-20) BUN (9-16) mg/dL Creatinine (0.5-1.4) mg/dL Estim Creat Clear Calc Estimated GFR Random Glucose (60-115) mg/dL Calcium 13.4 H* (8.4-10.2) mg/dL Phosphorus 1.9 L (2.7-4.5) mg/dL Magnesium 1.9 (1.6-2.6) mg/dL Total Bilirubin (0.0-1.0) mg/dL AST (5-31) U/L ALT (0-31) U/L Alkaline Phosphatase (39-117) U/L Troponin I High Sens (<3.5-17.0) ng/L Total Protein (6.5-8.0) g/dL Albumin (3.5-5.0) g/dL Urine Color Urine Appearance Urine pH (5.0-9.0) Ur Specific [place] (1.005-1.025) Urine Protein (Neg-Trace) mg/dL Urine Glucose (UA) (Negative) mg/dL Urine Ketones (Negative) mg/dL Urine Blood (Negative) Urine Nitrite (Negative) Ur Leukocyte Esterase (Negative) Urine RBC (0-2) /HPF Urine WBC (0-5) /HPF Ur Squamous Epith Cells (0-2) /HPF Urine Bacteria (None Seen) Hyaline Casts (0-2) /LPF Influenza Type A (PCR) (Negative) Influenza Type B (PCR) (Negative) RSV RNA Qual (PCR) (Negative) SARS-CoV-2 RNA (RT-PCR) (Negative) Independent Interpretation I performed an independent interpretation of an: EKG (Normal sinus rhythm with a rate of 80 beats minute. Left axis deviation. No significant change when compared to previous from 3 days ago) and CT Scan Interpretation: Agree with Radiology interpretation, no acute traumatic injury Radiology Impression Discussion of test interpretation with radiology: I have reviewed the radiologist's reading. Radiologist Impression: FINDINGS: No intracranial hemorrhage, large infarction, or mass lesion is seen. Mild, diffuse, age-appropriate cortical atrophy and chronic periventricular white matter ischemic change. No extra-axial collection is appreciated. The ventricles are normal in size and configuration without evidence of hydrocephalus. The visualized paranasal sinuses and mastoid air cells are clear. CT/CT head/brain wo IV con IMPRESSION: No acute intracranial finding. Electronically signed by: Gal Kan MD 06/04/2024 02:48 PM EDT RP Discharge Plan Discharge Clinical Impression: Hypercalcemia, Weakness Patient Disposition: Admitted As Inpatient Prescriptions: No Action cefuroxime axetil 500 mg tablet 500 mg PO BID Qty: 14 0RF cinacalcet 60 mg tablet 60 mg PO BID Print Language: Moroccan
[2024-06-04 14:08] LABS: MANUAL DIFF FLAG NO
[2024-06-04 14:09] LABS: Basophils Percent Auto 0.3 % (0-2); Eosinophils Absolute Auto 0.1 X10*3/uL (0.0-0.4); Eosinophils Percent Auto 0.8 % (0-4); Hematocrit 36.1 % (37.0-47.0); Hemoglobin 11.8 g/dl (12.0-16.0); Imm Gran Abs Auto 0.02 X10*3/uL (0.00-0.03); Imm Gran Pct Auto 0.3 % (0.0-0.4); Lymphocytes Absolute Auto 1.4 X10*3/uL (1.2-4.9); Lymphocytes Percent Auto 21.5 % (20-40); Mean Corpuscular HGB Conc 32.7 g/dl (31.0-35.0); Mean Corpuscular Hemoglobin 29.4 pg (27.0-33.0); Mean Corpuscular Volume 89.8 fL (80.0-98.0); Mean Platelet Volume 9.1 fL (9.4-12.3); Monocytes Absolute Auto 0.4 X10*3/uL (0.1-1.2); Monocytes Percent Auto 6.4 % (2-11); Neutrophils Absolute Auto 4.6 x10*3/uL (2.0-8.3); Neutrophils Percent Auto 70.7 % (45-73); Platelet Count 287 X10*3/uL (160-400); Red Blood Count 4.02 X10*6/uL (4.20-5.50); Red Cell Distribution Width 13.6 % (11.0-16.0); White Blood Count 6.6 X10*3/uL (4.8-10.8)
[2024-06-04 14:16] LABS: INTERNATIONAL NORM RATIO 0.9 (0.9-1.1); Prothrombin Time 10.6 SEC (10.9-12.4)
[2024-06-04 14:19] LABS: Partial Thromboplastin Time 32.8 SEC (26.0-36.8)
[2024-06-04 14:36] LABS: Alanine Aminotransferase 20 U/L (0-31); Albumin Level 4.4 g/dL (3.5-5.0); Alkaline Phosphatase 113 U/L (39-117); Anion Gap 15 (12-20); Aspartate Amino Transferase 24 U/L (5-31); Bilirubin Total 0.5 mg/dL (0.0-1.0); Blood Urea Nitrogen 14 mg/dL (9-16); Carbon Dioxide 31 mmol/L (22-29); Chloride 100 mmol/L (96-108); Creatinine Clr Calc Pharmacy 51.5; Estimated Glomerular Filt Rate > 60; Glucose Random 99 mg/dL (60-115); Potassium 3.8 mmol/L (3.3-5.1); Sodium 142 mmol/L (135-145); Total Protein 7.3 g/dL (6.5-8.0)
[2024-06-04 14:38] LABS: Troponin-I High Sensitivity 7.5 ng/L (<3.5-17.0)
[2024-06-04 14:46] LABS: Influenza A PCR NEGATIVE (Negative); Influenza B PCR NEGATIVE (Negative); Resp Syncy Virus RNA Qual PCR NEGATIVE (Negative); SARS COV2 PCR INHOUSE NEGATIVE (Negative)
[2024-06-04 16:26] VITALS: BP 162/73; PULSE 74; RESP 14; TEMP 36.8; O2SAT 98
[2024-06-04] MEDS: 0.9 % Sodium Chloride 1,000 ML 999 ML IV ×2 (17:24→21:33)
[2024-06-04 17:46] VITALS: BP 156/74; PULSE 69
[2024-06-04 17:47] VITALS: BP 156/72; PULSE 71
[2024-06-04 17:51] VITALS: BP 172/82; PULSE 106
[2024-06-04 18:30] LABS: Appearance Urine Cloudy; Color Urine Yellow; Glucose Urine UA Negative (Negative); Leukocyte Esterase Urine Large (3+) (Negative); Nitrite Urine Negative (Negative); UMIC TRIGGER UACC YES; Urine Blood Negative (Negative); Urine Ketones Negative (Negative); Urine Protein Negative (Neg-Trace)
[2024-06-04 18:34] LABS: Bacteria Urine None Seen (None Seen); Hyaline Casts Urine 0-2 /LPF (0-2); RBC Urine 0-2 /HPF (0-2); UACC Culture Trigger YES; WBC Urine >50 /HPF (0-5)
[2024-06-04 19:41] VITALS: BP 173/75; PULSE 69; RESP 18; TEMP 36.5; O2SAT 100
[2024-06-04 20:29] LABS: Magnesium 1.9 mg/dL (1.6-2.6); Phosphorus 1.9 mg/dL (2.7-4.5)
[2024-06-04 20:50] LABS: Calcium 13.4 mg/dL (8.4-10.2)
--- NOTE | 2024-06-04 21:09 | PM.IMHP ---
History of Present Illness Date of Service: 06/04/24 Chief Complaint: Weakness This is a 79-year-old female with pertinent history of primary hyperthyroidism, cognitive impairment, osteoporosis presenting from [facility] for evaluation of weakness, poor p.o. intake and nausea. Of note, patient was recently admitted on 05/28 with hypercalcemia and acute UTI and discharged on 05/30 with cinacalcet and p.o. cefuroxime. 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 Unclear if she is compliant with p.o. cinacalcet. Patient's son reported poor appetite. Patient states on the day of presentation, when she stood up to walk, she got dizzy/lightheaded and passed out. The next thing she knew she was on the ground. No chest pain or palpitations prior to the fall. No fever, chills, abdominal pain, changes in urinary or bowel habits. In the emergency department, serum calcium found to be 14. Patient was resuscitated with IV crystalloids and given IV bisphosphonate Review of Systems ENT: Reports dizziness Cardiovascular: Cardiovascular: Reports no additional cardiovascular complaints and Reports syncope Respiratory: Respiratory: Reports no additional respiratory complaints Neurologic: Reports dizziness and Reports syncope [facility] Medical History Numbness Skin lesion Abnormal EKG Chest pain Cognitive impairment Sinus pain Shoulder pain COVID-19 virus infection Lumbar pain Left shoulder pain Clavicle fracture Peripheral vascular disease Mass of left foot Headache Age related osteoporosis Renal calculi Encounter for Medicare annual wellness exam Left upper quadrant abdominal pain Positive Romberg test Loss of balance Osteoporosis Constipation by delayed colonic transit Anxiety Hearing loss Blurry vision Thyroid nodule Chest pain Cervical spondylosis with radiculopathy Cold extremities Skin rash Cervical radiculopathy due to degenerative joint disease of spine Degenerative disc disease, cervical Family History Father No problems noted. Mother Cancer Skin cancer Sister Skin cancer Sister Lung cancer Surgical History No pertinent past surgical history Social History Household Members: None Household Members Other:: pt states I live with 50 other women , vague Housing: Halfway Do you presently have visiting nurse or other home services: No Alcohol intake: current Alcohol intake frequency: does not drink Alcohol type: wine Comment: 1:1 sitter Patient Tobacco Use Status: Never used Tobacco e-Cigarette/Vaping Use: Never Used Second Hand Smoke Exposure: Yes Advance Directives: Yes Advance Directives Information Provided: Yes Advance Directives on File: No Do you have a plan to hurt others: No Plan service: No Current occupational status: retired Cognitive needs: No Hearing needs: No Vision needs: No Meds Allergies Allergy/AdvReac Type Severity Reaction Status Date / Time елена Allergy Intermediate Rash Verified 06/04/24 13:20 Active Medications: Current Medications Pamidronate Disodium 60 mg/ (Sodium Chloride) 260 mls @ 130 mls/hr IV ONCE ONE Stop: 06/04/24 23:05 Home Medications ?Medication ?Instructions ?Recorded ?Confirmed ?Last Taken ?Type cinacalcet 60 mg tablet 60 mg PO BID 05/28/24 05/28/24 Unknown History Physical Exam Vital Signs and Narrative: Vital Signs: Last Vital Signs Temp 97.7 F 06/04/24 19:41 Pulse 69 06/04/24 19:41 Resp 18 06/04/24 19:41 BP 173/75 H 06/04/24 19:41 Pulse Ox 100 06/04/24 19:41 O2 Del Method Room Air 06/04/24 19:41 BMI result Body Mass Index 16.7 Elderly female lying in bed in no distress Neck supple, no JVD Regular rate and rhythm, S1-S2 heard Regular breath sounds bilaterally, no wheezing or crackles appreciated Abdomen soft nontender, no guarding, no rigidity Patient is awake, alert and oriented to self, place, time and person ; no focal motor deficit Psych: Normal mood No pedal edema Results Labs 06/04/24 13:52 06/04/24 13:52 Labs: Laboratory Results - last 24 hr 06/04/24 06/04/24 06/04/24 13:52 13:53 18:20 MCV 89.8 MCH 29.4 MCHC 32.7 RDW 13.6 Plt Count 287 MPV 9.1 L Immature Gran % (Auto) 0.3 Neut % (Auto) 70.7 Lymph % (Auto) 21.5 [place] % (Auto) 6.4 Eos % (Auto) 0.8 Baso % (Auto) 0.3 Lymph # (Auto) 1.4 [place] # (Auto) 0.4 Eos # (Auto) 0.1 Baso # (Auto) 0.0 Abs Immat Gran (auto) 0.02 Absolute Neuts (auto) 4.6 Absolute Nucleated RBC 0.000 Nucleated RBC % (auto) 0.0 PT 10.6 L INR 0.9 APTT 32.8 Anion Gap 15 Estim Creat Clear Calc 51.5 Estimated GFR > 60 Random Glucose 99 Calcium 14.0 H* D Phosphorus Magnesium Total Bilirubin 0.5 AST 24 ALT 20 Alkaline Phosphatase 113 Troponin I High Sens 7.5 Total Protein 7.3 Albumin 4.4 Urine Color Yellow Urine Appearance Cloudy Urine pH 7.0 Ur Specific [place] 1.010 Urine Protein Negative Urine Glucose (UA) Negative Urine Ketones Negative Urine Blood Negative Urine Nitrite Negative Ur Leukocyte Esterase Large (3+) H Urine RBC 0-2 Urine WBC >50 H Ur Squamous Epith Cells 3-5 Urine Bacteria None Seen Hyaline Casts 0-2 Influenza Type A (PCR) NEGATIVE Influenza Type B (PCR) NEGATIVE RSV RNA Qual (PCR) NEGATIVE SARS-CoV-2 RNA (RT-PCR) NEGATIVE 06/04/24 20:05 MCV MCH MCHC RDW Plt Count MPV Immature Gran % (Auto) Neut % (Auto) Lymph % (Auto) [place] % (Auto) Eos % (Auto) Baso % (Auto) Lymph # (Auto) [place] # (Auto) Eos # (Auto) Baso # (Auto) Abs Immat Gran (auto) Absolute Neuts (auto) Absolute Nucleated RBC Nucleated RBC % (auto) PT INR APTT Anion Gap Estim Creat Clear Calc Estimated GFR Random Glucose Calcium 13.4 H* Phosphorus 1.9 L Magnesium 1.9 Total Bilirubin AST ALT Alkaline Phosphatase Troponin I High Sens Total Protein Albumin Urine Color Urine Appearance Urine pH Ur Specific [place] Urine Protein Urine Glucose (UA) Urine Ketones Urine Blood Urine Nitrite Ur Leukocyte Esterase Urine RBC Urine WBC Ur Squamous Epith Cells Urine Bacteria Hyaline Casts Influenza Type A (PCR) Influenza Type B (PCR) RSV RNA Qual (PCR) SARS-CoV-2 RNA (RT-PCR) Imaging Radiologist's Impressions: Impressions Head CT 06/04/24 13:29 IMPRESSION: No acute intracranial finding. Electronically signed by: Gal Kan MD 06/04/2024 02:48 PM EDT RP Assessment and Plan (1) Hypercalcemia: Status: Acute (2) Primary hyperparathyroidism: Status: Acute (3) Weakness: Status: Acute Plan This is a 79-year-old female with pertinent history of primary hyperthyroidism, cognitive impairment, osteoporosis presenting from [facility] for evaluation of weakness, poor p.o. intake and nausea. #. Severe and symptomatic hypercalcemia due to primary hyperparathyroidism: Resuscitated with IV crystalloids and given IV bisphosphonates in the ER. Unclear if patient is compliant with cinacalcet at home. Will resume. Closely follow BMP. Will need outpatient follow-up with endocrinology #. Orthostatic syncope due to intravascular volume depletion: Resuscitated with IV crystalloids. Repeat orthostatics in a.m. #. Generalized weakness in the setting of above: Physical therapy to evaluate and treat #. Acute UTI: Patient was discharged on 05/30 with p.o. cefuroxime but did not pick it up from pharmacy and did not complete antibiotic course. IV ceftriaxone while patient is in the hospital, reviewed previous urine culture #. Cognitive impairment: Maintain sleep-wake cycle Med rec pending DVT prophylaxis: Lovenox Full code Admit as inpatient and will require two night minimum hospital stay for close monitoring of serum electrolytes, IV crystalloid resuscitation (as above), which is not possible in a lesser acute setting. Quality Stroke Does the patient have a stroke diagnosis?: No VTE Prior VTE?: No VTE Risk Level:: Medical - moderate - high VTE Device Contraindication: Treatment Not Indicated VTE Drug Contraindication: N/A - Med Ordered
[2024-06-04] MEDS: cefTRIAXone sodium 1 GM VIAL IVPUSH (21:32)
[2024-06-04] MEDS: Cinacalcet HCl 30 MG TABLET 60 MG PO (21:52)
[2024-06-04] MEDS: Enoxaparin Sodium 40 MG/0.4 ML SYRINGE SUBCUT (21:52)
[2024-06-04] MEDS: Pamidronate Disodium 60 MG in 0.9 % Sodium Chloride 250 ML 130 MG IV (21:52)
--- NOTE | 2024-06-04 22:36 | PC.NURSE ---
Pt is a 79 y Female BIB ambulance from home (Ind living). Pt is pleasantly confused d/t memory loss, reporting she woke up on the ground. Pt having increase in falls, as reported by son, who believes pt needs higher level of care, U/A + for leukocytes and wbc. Pt having increase in weakness as well. Pt alert and oriented X4, does ask repetitive questions. Chronic hypercalcemia, receiving Pamidronate IV. Pt received IVP ceftriaxone. Head CT negative. ambulates with walker. #20 L-AC
[2024-06-05] VITALS (7 sets, daily range): BP systolic 139–188; BP diastolic 65–106; PULSE 59–77; RESP 14–18; TEMP 36.2–37.1; O2SAT 98–100; BMI 18.4
[2024-06-05] MEDS: Acetaminophen 325 MG TABLET 650 MG PO ×2 (03:34→19:36)
[2024-06-05 06:38] LABS: MANUAL DIFF FLAG NO
[2024-06-05 07:05] LABS: Anion Gap 10 (12-20); Blood Urea Nitrogen 10 mg/dL (9-16); Calcium 11.4 mg/dL (8.4-10.2); Carbon Dioxide 27 mmol/L (22-29); Chloride 109 mmol/L (96-108); Creatinine Clr Calc Pharmacy 71.6; Estimated Glomerular Filt Rate > 60; Glucose Random 97 mg/dL (60-115); Potassium 3.6 mmol/L (3.3-5.1); Sodium 142 mmol/L (135-145)
[2024-06-05 07:37] LABS: Basophils Percent Auto 0.5 % (0-2); Eosinophils Absolute Auto 0.1 X10*3/uL (0.0-0.4); Eosinophils Percent Auto 1.9 % (0-4); Imm Gran Abs Auto 0.01 X10*3/uL (0.00-0.03); Imm Gran Pct Auto 0.3 % (0.0-0.4); Lymphocytes Absolute Auto 1.3 X10*3/uL (1.2-4.9); Lymphocytes Percent Auto 35.1 % (20-40); Mean Corpuscular HGB Conc 32.3 g/dl (31.0-35.0); Mean Corpuscular Hemoglobin 29.4 pg (27.0-33.0); Mean Corpuscular Volume 91.2 fL (80.0-98.0); Mean Platelet Volume 9.6 fL (9.4-12.3); Monocytes Absolute Auto 0.4 X10*3/uL (0.1-1.2); Monocytes Percent Auto 9.5 % (2-11); Neutrophils Absolute Auto 1.9 x10*3/uL (2.0-8.3); Neutrophils Percent Auto 52.7 % (45-73); Platelet Count 228 X10*3/uL (160-400); Red Cell Distribution Width 13.7 % (11.0-16.0); White Blood Count 3.7 X10*3/uL (4.8-10.8)
[2024-06-05] MEDS: Milk of Magnesia 30 ML ORAL.SUSP PO (07:58)
[2024-06-05] MEDS: ondansetron HCL 4 MG/2 ML VIAL IVPUSH (07:59)
[2024-06-05] MEDS: 0.9 % Sodium Chloride Flush 3 ML SYRINGE IVFLUSH ×3 (08:00→21:11)
[2024-06-05] MEDS: Cinacalcet HCl 30 MG TABLET 60 MG PO ×2 (08:01→17:08)
--- NOTE | 2024-06-05 08:30 | PHA.MEDREC ---
Pharmacy Consult ? Medication Reconciliation Pharmacy has completed the medication reconciliation. Spoke to patient's son Antonio ([phone]) who noted that she is only taking cinacalcet which matches pharmacy claims. He did note that she had an antibiotic prescription for a UTI that was never picked up. He also voiced concerns about her adherence due to memory issues. No known OTC medications
--- NOTE | 2024-06-05 09:30 | MHC.CM.PN ---
Addendum entered by Yoana Waters 06/05/24 14:09: This CM received a phone call from pts son/HCP Antonio requesting to discuss his mothers discharge plan, per Antonio, he is wondering if she can go to [facility] for rehab upon discharge as he states she is very weak and will need some physical therapy. This CM explained that when appropriate, PT can evaluate pt for discharge dispo, and then we can plan for her discharge accordingly. Original Note: IMM 06/05. Pt self-care, lives at [facility], active with [facility], and [facility] services. Pt will need [facility] shuttle for transport home at discharge. HCP on file and verified. PCP: Dr. Yuli Gray
--- NOTE | 2024-06-05 10:13 | HO.PM.IMPN ---
Subjective Subjective Date of Service: 06/05/24 Review of Systems Follow-up hypercalcemia Ambulating in the room to bathroom, no dizziness Physical Exam Vital Signs: Vital Signs: Last Vital Signs Temp 97.1 F 06/05/24 07:28 Pulse 77 06/05/24 08:38 Resp 18 06/05/24 07:28 BP 143/66 H 06/05/24 08:38 Pulse Ox 98 06/05/24 07:28 O2 Del Method Room Air 06/05/24 07:28 BMI result Body Mass Index 18.4 Appearing in no acute distress lung sounds are clear to auscultation heart regular rate rhythm, clear S1, S2 positive bowel sounds, abdomen is soft, nontender neuro patient is alert x3, no focal deficits Objective Data Active Medications Acetaminophen (Acetaminophen 325 Mg Tablet) 650 mg PO Q6H PRN PRN Reason: Pain, Mild (Pain Scale 1-3), fever or headache Last Admin: 06/05/24 03:34 Dose: 650 mg Documented By: JEREMIE Ceftriaxone Sodium (Ceftriaxone Sodium 1 Gm Vial) 1 gm IVPUSH Q24H [facility] Cinacalcet (Cinacalcet Hcl 30 Mg Tablet) 60 mg PO BIDWM [facility] Last Admin: 06/05/24 08:01 Dose: 60 mg Documented By: ANDREIA Enoxaparin Sodium (Enoxaparin Sodium 40 Mg/0.4 Ml Syringe) 40 mg SUBCUT Q24H [facility] Last Admin: 06/04/24 21:52 Dose: 40 mg Documented By: ANANT Magnesium Hydroxide (Milk Of Magnesia 30 Ml Oral.Susp) 30 ml PO DAILY PRN PRN Reason: Constipation Last Admin: 06/05/24 07:58 Dose: 30 ml Documented By: ANDREIA Melatonin (Melatonin 3 Mg Tablet) 6 mg PO BEDTIME PRN PRN Reason: Insomnia Ondansetron HCl (Ondansetron Hcl 4 Mg/2 Ml Vial) 4 mg IVPUSH Q8H PRN PRN Reason: Nausea and Vomiting Last Admin: 06/05/24 07:59 Dose: 4 mg Documented By: ANDREIA Sodium Chloride (0.9 % Sodium Chloride Flush 3 Ml Syringe) 3 ml IVFLUSH QSHIFT [facility] Last Admin: 06/05/24 08:00 Dose: 3 ml Documented By: HO.GRAZIC Labs 06/05/24 05:40 06/05/24 05:40 Labs: Laboratory Results - last 24 hr 06/04/24 06/04/24 06/04/24 13:52 13:53 18:20 MCV 89.8 MCH 29.4 MCHC 32.7 RDW 13.6 Plt Count 287 MPV 9.1 L Immature Gran % (Auto) 0.3 Neut % (Auto) 70.7 Lymph % (Auto) 21.5 Cocke % (Auto) 6.4 Eos % (Auto) 0.8 Baso % (Auto) 0.3 Lymph # (Auto) 1.4 Cocke # (Auto) 0.4 Eos # (Auto) 0.1 Baso # (Auto) 0.0 Abs Immat Gran (auto) 0.02 Absolute Neuts (auto) 4.6 Absolute Nucleated RBC 0.000 Nucleated RBC % (auto) 0.0 PT 10.6 L INR 0.9 APTT 32.8 Anion Gap 15 Estim Creat Clear Calc 51.5 Estimated GFR > 60 Random Glucose 99 Calcium 14.0 H* D Phosphorus Magnesium Total Bilirubin 0.5 AST 24 ALT 20 Alkaline Phosphatase 113 Troponin I High Sens 7.5 Total Protein 7.3 Albumin 4.4 Urine Color Yellow Urine Appearance Cloudy Urine pH 7.0 Ur Specific Milfay 1.010 Urine Protein Negative Urine Glucose (UA) Negative Urine Ketones Negative Urine Blood Negative Urine Nitrite Negative Ur Leukocyte Esterase Large (3+) H Urine RBC 0-2 Urine WBC >50 H Ur Squamous Epith Cells 3-5 Urine Bacteria None Seen Hyaline Casts 0-2 Influenza Type A (PCR) NEGATIVE Influenza Type B (PCR) NEGATIVE RSV RNA Qual (PCR) NEGATIVE SARS-CoV-2 RNA (RT-PCR) NEGATIVE 06/04/24 06/05/24 20:05 05:40 MCV 91.2 MCH 29.4 MCHC 32.3 RDW 13.7 Plt Count 228 MPV 9.6 Immature Gran % (Auto) 0.3 Neut % (Auto) 52.7 Lymph % (Auto) 35.1 Cocke % (Auto) 9.5 Eos % (Auto) 1.9 Baso % (Auto) 0.5 Lymph # (Auto) 1.3 Cocke # (Auto) 0.4 Eos # (Auto) 0.1 Baso # (Auto) 0.0 Abs Immat Gran (auto) 0.01 Absolute Neuts (auto) 1.9 L Absolute Nucleated RBC 0.000 Nucleated RBC % (auto) 0.0 PT INR APTT Anion Gap 10 L Estim Creat Clear Calc 71.6 Estimated GFR > 60 Random Glucose 97 Calcium 13.4 H* 11.4 H D Phosphorus 1.9 L Magnesium 1.9 Total Bilirubin AST ALT Alkaline Phosphatase Troponin I High Sens Total Protein Albumin Urine Color Urine Appearance Urine pH Ur Specific Milfay Urine Protein Urine Glucose (UA) Urine Ketones Urine Blood Urine Nitrite Ur Leukocyte Esterase Urine RBC Urine WBC Ur Squamous Epith Cells Urine Bacteria Hyaline Casts Influenza Type A (PCR) Influenza Type B (PCR) RSV RNA Qual (PCR) SARS-CoV-2 RNA (RT-PCR) Assessment and Plan (1) Hypercalcemia: Status: Acute Plan This is a 79-year-old female with pertinent history of primary hyperthyroidism, cognitive impairment, osteoporosis presenting from [facility] for evaluation of weakness, poor p.o. intake and nausea. Severe and symptomatic hypercalcemia due to primary hyperparathyroidism Resuscitated with IV crystalloids and given IV bisphosphonates in the ER. Unclear if patient is compliant with cinacalcet at home. Will resume. Closely follow BMP. Will need outpatient follow-up with endocrinology Orthostatic syncope due to intravascular volume depletion Resuscitated with IV crystalloids. Follow orthostatics Generalized weakness in the setting of above Physical therapy to evaluate and treat Acute UTI Patient was discharged on 05/30 with p.o. cefuroxime but did not pick it up from pharmacy and did not complete antibiotic course. IV ceftriaxone while patient is in the hospital, reviewed previous urine culture Cognitive impairment Maintain sleep-wake cycle DVT prophylaxis: Loverojasx Attending Dr. Evans Full code Quality Stroke Does the patient have a stroke diagnosis?: No VTE Prior VTE?: No VTE Risk Level:: Medical - moderate - high VTE Device Contraindication: Treatment Not Indicated VTE Drug Contraindication: N/A - Med Ordered
[2024-06-05] MEDS: Potassium Phosphate/NS 15 MMOL/250 ML PLAST..BAG 62.5 MMOL IV (11:11)
--- NOTE | 2024-06-05 12:10 | MHC.CLN ---
NUTRITION DIET=REGULAR. ADD ENSURE BID. SUPPLEMENT PROVIDES 700 KCALS, 40 G PROTEIN. NO SIGNIFICANT WEIGHT LOSS X ONE YEAR. BMI=18.4. PRIOR ADM 10-7 WITH POOR PO, ABDOMINAL PAIN, HYPERCALCEMIA. NUTRITION DX MODERATE MALNUTRITION IN THE CONTEXT OF CHRONIC ILLNESS. MILD DEPLETION OF BODY FAT AND MUSCLE MASS NOTED. FOLLOW FOR PO INTAKE. ENCOURAGE INTAKE OF MEALS AND SUPPLEMENT. SEE CLINICAL NUTRITION ASSESSMENT 06/05/24.
[2024-06-05] MEDS: cefTRIAXone sodium 1 GM VIAL IVPUSH (20:09)
[2024-06-05] MEDS: Enoxaparin Sodium 40 MG/0.4 ML SYRINGE SUBCUT (21:08)
[2024-06-05] MEDS: Melatonin 3 MG TABLET 6 MG PO (21:45)
[2024-06-06 03:30] VITALS: BP 124/59; PULSE 59; RESP 16; TEMP 36.3; O2SAT 97
[2024-06-06 07:34] VITALS: BP 139/64; PULSE 64; RESP 16; TEMP 36.5; O2SAT 96
[2024-06-06] MEDS: 0.9 % Sodium Chloride Flush 3 ML SYRINGE IVFLUSH ×3 (07:42→20:38)
[2024-06-06] MEDS: ondansetron HCL 4 MG/2 ML VIAL IVPUSH (07:46)
[2024-06-06] MEDS: Cinacalcet HCl 30 MG TABLET 60 MG PO ×2 (08:49→16:22)
[2024-06-06 09:09] LABS: Anion Gap 11 (12-20); Blood Urea Nitrogen 8 mg/dL (9-16); Calcium 11.4 mg/dL (8.4-10.2); Carbon Dioxide 25 mmol/L (22-29); Chloride 109 mmol/L (96-108); Creatinine Clr Calc Pharmacy 57.5; Estimated Glomerular Filt Rate > 60; Glucose Random 92 mg/dL (60-115); Phosphorus 2.3 mg/dL (2.7-4.5); Potassium 4.1 mmol/L (3.3-5.1); Sodium 141 mmol/L (135-145)
--- NOTE | 2024-06-06 11:26 | HO.PM.IMPN ---
Subjective Subjective Date of Service: 06/06/24 Review of Systems Follow-up hypercalcemia Ambulating in the room to bathroom, no dizziness Physical Exam Vital Signs: Vital Signs: Last Vital Signs Temp 97.7 F 06/06/24 07:34 Pulse 64 06/06/24 07:34 Resp 16 06/06/24 07:34 BP 139/64 06/06/24 07:34 Pulse Ox 96 06/06/24 07:34 O2 Del Method Room Air 06/06/24 07:34 BMI result Body Mass Index 18.4 Appearing in no acute distress lung sounds are clear to auscultation heart regular rate rhythm, clear S1, S2 positive bowel sounds, abdomen is soft, nontender neuro patient is alert x3, no focal deficits Objective Data Active Medications Acetaminophen (Acetaminophen 325 Mg Tablet) 650 mg PO Q6H PRN PRN Reason: Pain, Mild (Pain Scale 1-3), fever or headache Last Admin: 06/05/24 19:36 Dose: 650 mg Documented By: NALDO Ceftriaxone Sodium (Ceftriaxone Sodium 1 Gm Vial) 1 gm IVPUSH Q24H [facility] Last Admin: 06/05/24 20:09 Dose: 1 gm Documented By: NALDO Cinacalcet (Cinacalcet Hcl 30 Mg Tablet) 60 mg PO BIDWM [facility] Last Admin: 06/06/24 08:49 Dose: 60 mg Documented By: DABHien Enoxaparin Sodium (Enoxaparin Sodium 40 Mg/0.4 Ml Syringe) 40 mg SUBCUT Q24H [facility] Last Admin: 06/05/24 21:08 Dose: 40 mg Documented By: NALDO Magnesium Hydroxide (Milk Of Magnesia 30 Ml Oral.Susp) 30 ml PO DAILY PRN PRN Reason: Constipation Last Admin: 06/05/24 07:58 Dose: 30 ml Documented By: GRAZIC Melatonin (Melatonin 3 Mg Tablet) 6 mg PO BEDTIME PRN PRN Reason: Insomnia Last Admin: 06/05/24 21:45 Dose: 6 mg Documented By: NALDO Ondansetron HCl (Ondansetron Hcl 4 Mg/2 Ml Vial) 4 mg IVPUSH Q8H PRN PRN Reason: Nausea and Vomiting Last Admin: 06/06/24 07:46 Dose: 4 mg Documented By: DABHien Sodium Chloride (0.9 % Sodium Chloride Flush 3 Ml Syringe) 3 ml IVFLUSH QSHIFT [facility] Last Admin: 06/06/24 07:42 Dose: 3 ml Documented By: ANTOINETTE Labs 06/05/24 05:40 06/06/24 08:04 Labs: Laboratory Results - last 24 hr 06/06/24 08:04 Anion Gap 11 L Estim Creat Clear Calc 57.5 Estimated GFR > 60 Random Glucose 92 Calcium 11.4 H Phosphorus 2.3 L Microbiology Microbiology Results: Microbiology 06/04/24 18:20 Urine Culture - Final Urine clean catch - Clean Catch Midstream Assessment and Plan (1) Hypercalcemia: Status: Acute Plan This is a 79-year-old female with pertinent history of primary hyperthyroidism, cognitive impairment, osteoporosis presenting from [facility] for evaluation of weakness, poor p.o. intake and nausea. Severe and symptomatic hypercalcemia due to primary hyperparathyroidism Resuscitated with IV crystalloids and given IV bisphosphonates in the ER. Unclear if patient is compliant with cinacalcet at home. Will resume. Closely follow BMP. Will need outpatient follow-up with endocrinology Orthostatic syncope due to intravascular volume depletion. Resolved Resuscitated with IV crystalloids. Follow orthostatics Generalized weakness in the setting of above Physical therapy rec STR Acute UTI Patient was discharged on 05/30 with p.o. cefuroxime but did not pick it up from pharmacy and did not complete antibiotic course. IV ceftriaxone while patient is in the hospital, reviewed previous urine culture Cognitive impairment Maintain sleep-wake cycle DVT prophylaxis: Lovenox Attending Dr. Evans Full code Quality Stroke Does the patient have a stroke diagnosis?: No VTE Prior VTE?: No VTE Risk Level:: Medical - moderate - high VTE Device Contraindication: Treatment Not Indicated VTE Drug Contraindication: N/A - Med Ordered
--- NOTE | 2024-06-06 13:01 | P.CDIM_ITS ---
PROVIDER RESPONSE TEXT: To clarify, the appropriate diagnosis supported by the clinical indicators: Malnutrition: moderate QUERY TEXT: PHYSICIAN'S DOCUMENTATION REQUEST Date of Query: 06/06/2024 12:38 PM EDT Patient Name: Elizabeth Carver Admit Date: 06/05/2024 Dear Zulema Armenta COMMUNITY SUPPORT WORKER, A review of the medical record indicates additional documentation may be needed. Please review below and update the documentation accordingly. Clinical Indicators: Clinical nutrition notes patient is moderately malnourished. Recent poor po with nausea, moderate depletion of body fat and muscle mass. Add Ensure BID If possible, please provide an associated diagnosis related to the abnormal BMI, such as: Underweight Malnutrition mild, moderate or severe Cachexia Anorexia Other (explain) Clinically unable to determine (explain) Thank you, Yesi Whalen, CCS, CDIS Use of terms such as suspected, likely, concern for, or probable (associated with a specific diagnosi s that is being evaluated, monitored, or treated as if it exists) are acceptable and can be coded in the inpatient se tting, when documented at the time of discharge. Please use your independent medical judgment in providing your response. THIS QUERY IS PART OF THE PERMANENT MEDICAL RECORD
[2024-06-06 13:23] LABS: Calcium, Ionized 6.7 mg/dL (4.7-5.5)
[2024-06-06 15:25] VITALS: BP 135/63; PULSE 68; RESP 20; TEMP 37.1; O2SAT 99
[2024-06-06 19:17] VITALS: BP 135/77; PULSE 75; RESP 20; TEMP 36.7; O2SAT 97
[2024-06-06] MEDS: cefTRIAXone sodium 1 GM VIAL IVPUSH (20:33)
[2024-06-06] MEDS: Enoxaparin Sodium 40 MG/0.4 ML SYRINGE SUBCUT (20:34)
[2024-06-07] MEDS: Melatonin 3 MG TABLET 6 MG PO (00:04)
[2024-06-07 03:35] VITALS: BP 127/72; PULSE 63; RESP 16; TEMP 36.2; O2SAT 97
[2024-06-07 07:12] VITALS: BP 130/62; PULSE 58; RESP 18; TEMP 36.6; O2SAT 99
[2024-06-07] MEDS: Cinacalcet HCl 30 MG TABLET 60 MG PO (07:40)
[2024-06-07] MEDS: 0.9 % Sodium Chloride Flush 3 ML SYRINGE IVFLUSH (07:43)
--- NOTE | 2024-06-07 10:06 | MHC.CLN ---
F/U DIET=REGULAR. ENSURE BID PROVIDES 700 KCALS, 40 G PROTEIN. INTAKE VARIABLE, 25-75%. FOLLOW FOR PO INTAKE. ENCOURAGE INTAKE OF MEALS AND SUPPLEMENT.
--- NOTE | 2024-06-07 11:10 | MHC.CM.PN ---
pt to be dcd today at 1;30 to [facility] son notified
--- NOTE | 2024-06-07 11:58 | PM.DS ---
DS: Providers Provider Date of Service: 06/07/24 Date of admission: 06/04/24 21:08 Primary care physician: Yuli Gray MD DS: Diagnosis Discharge Diagnosis (1) Hypercalcemia: Status: Acute DS: Summary Hospital Course Hospital Course: History and physical as per admitting provider. This is a 79-year-old female with pertinent history of primary hyperthyroidism, cognitive impairment, osteoporosis presenting from [facility] for evaluation of weakness, poor p.o. intake and nausea. Of note, patient was recently admitted on 05/28 with hypercalcemia and acute UTI and discharged on 05/30 with cinacalcet and p.o. cefuroxime. Patient did not spanish moss picker her antibiotic prescription from the pharmacy. Unclear if she is compliant with p.o. cinacalcet. Patient's son reported poor appetite. Patient states on the day of presentation, when she stood up to walk, she got dizzy/lightheaded and passed out. The next thing she knew she was on the ground. No chest pain or palpitations prior to the fall. No fever, chills, abdominal pain, changes in urinary or bowel habits. In the emergency department, serum calcium found to be 14. Patient was resuscitated with IV crystalloids and given IV bisphosphonate 79-year-old woman treated for severe symptomatic hypercalcemia secondary to primary hyperparathyroidism with episodes of orthostatic syncope likely due to intravascular volume depletion. Apparently at home she had not been taking her cinacalcet for her chronic hypercalcemia. She was restarted on her medication and IV fluids and all symptoms have resolved. Of note she had a urinary tract infection from when she was discharged on 05/30, she was sent home with Ceftin but apparently no one had picked it up from the pharmacy and she never started. Therefore she was treated with IV Rocephin and will complete course with oral Ceftin. She should follow up with her outpatient media relations specialist regarding her hypercalcemia and continue taking her medications. Plan is to discharge to short-term rehab and patient is in agreement with this. Cognitive impairment. Supportive care Time Attestation Discharge Coordination Time (in mins): 36 Quality: Safe Use of Opioids Does Pt have an Active Cancer Diagnosis on the Problem List?: No Quality: Stroke Does the patient have a stroke diagnosis?: No Physical Exam Vital Signs: Vital Signs: Last Vital Signs Temp 97.9 F 06/07/24 07:12 Pulse 58 06/07/24 07:12 Resp 18 06/07/24 07:12 BP 130/62 06/07/24 07:12 Pulse Ox 99 06/07/24 07:12 O2 Del Method Room Air 06/07/24 07:12 BMI result Body Mass Index 18.4 Appearing in no acute distress head is normocephalic atraumatic eyes pupils are PERRLA sclera is anicteric mouth throat mucous membranes are intact and moist neck is supple no lymphadenopathy, no JVD noted lung sounds are clear to auscultation heart regular rate rhythm, clear S1, S2 positive bowel sounds, abdomen is soft, nontender neuro patient is alert x3, no focal deficits DS: Data Data Completed and Pending Labs on day of discharge: Laboratory Results - last 24 hr 06/04/24 20:34 Ionized Calcium 6.7 H Discharge Plan Discharge Anticipated Discharge Date/Time: 06/07/24 11:33 Patient Disposition: Xfer SNF Discharge Diagnosis: Symptomatic hypercalcemia Hyperparathyroidism UTI Referrals: [facility] [Other] - 1 Week Yuli Vieira MD [Primary Care Provider] - 1 Week Discharge Medications: New cefuroxime axetil 250 mg tablet 250 mg PO BID Qty: 6 0RF Continued cinacalcet 60 mg tablet 60 mg PO BID Discharge Orders: Discharge Order (Routine); Ordered 06/07/24 Ordered By: Zulema Armenta Diet: Advance to usual diet Activity on Discharge: As tolerated Stand Alone Forms: Patient Portal Discharge page Print Language: Khmer Care Plan Goals: Transfer to Short term rehab for physical therapy Health Concerns: Symptomatic hypercalcemia Hyperparathyroidism UTI Plan of Treatment: Follow-up with primary care provider as needed Take all medications as prescribed Assessment: See discharge summary
== END 2024-06-07 13:42 | disposition skilled nursing facility (03) | DRG 644 ==
LOC: HO.ED 21:09 → HO.EDOVER 21:12 → HO.S3 23:35
PROVIDERS: Physician Assistant; Admitting Provider Student in an Organized Health Care Education/Training Program; Emergency Provider Emergency Medicine; PCP Internal Medicine; Visit Provider Nurse Practitioner Acute Care
DX: E21.0 Primary hyperparathyroidism (principal); E44.0 Moderate protein-calorie malnutrition; N39.0 Urinary tract infection, site not specified; Z68.1 Body mass index [BMI] 19.9 or less, adult; I95.1 Orthostatic hypotension; T36.1X6A Underdosing of cephalosporins and other beta-lactam antibiotics, initial encounter; T50.996A Underdosing of other drugs, medicaments and biological substances, initial encounter; Z20.822 Contact with and (suspected) exposure to COVID-19; Z87.891 Personal history of nicotine dependence; Z79.899 Other long term (current) drug therapy
CPT/HCPCS: 0241U; 36415; 70450; 71045; 80048; 80053; 80076; 81001; 82140; 82272; 82310; 82330; 83690; 83735; 84100; 84484; 85025; 85610; 85730; 86140; 87086; 93005; 97161; 99285; J0696; J1650; J2405; J2430

== ENCOUNTER → 2024-06-04 13:21 | Outpatient (BNV) | payer MEDICARE, MEDICAID, SELFPAY | PROVIDERS: Admitting Provider Student in an Organized Health Care Education/Training Program; Emergency Provider Emergency Medicine; PCP Internal Medicine; Visit Provider Internal Medicine | DX: R94.31 Abnormal electrocardiogram [ECG] [EKG] (principal); R53.1 Weakness | CPT/HCPCS: 93010 ==

== ENCOUNTER → 2024-06-04 21:08 | Outpatient (BNV) | payer MEDICARE, MEDICAID, SELFPAY | PROVIDERS: Admitting Provider Student in an Organized Health Care Education/Training Program; Emergency Provider Emergency Medicine; PCP Internal Medicine; Visit Provider Student in an Organized Health Care Education/Training Program | DX: E83.52 Hypercalcemia (principal) | CPT/HCPCS: 99223; 99232; 99239 ==